=== PATIENT | female | born 1935 | race Caucasian/White ===

== ENCOUNTER 2021-12-20 08:58 | Outpatient (RCR) | payer MEDICARE, SELFPAY ==
--- OUTSIDE RECORDS SUMMARY | 2021-12-01 09:14 | XMS_ITS | Continuity of Care Document ---
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 Own home/apt August 27, 2020 7:4 7pm With whom do you live? Spouse August 27, 2020 7:47pm Comment on who patient lives Joselyn July 11:34am with Additional Data Assigned Sex Female Problems Active Problems Medical Problem Onset Date Status Upper GI bleed Active Acute blood loss anemia Active Inactive/Resolved Problems Medical Problem Onset Date Status Afib Resolved Atrial flutter Resolved Atypical chest pain Resolved Hematuria Resolved Closed head injury Resolved Endometrial cancer 2019 Resolved Medications Medication Status Dose Units Route Directions Qty Days Start End Ins tructions Date Date Apixaban Active 2.5 MG PO Twice A Day 60 (Eliquis) 2.5 Mg TAB Atorvastatin Active 10 MG PO Bedtime 90 Calcium (Lipitor) 10 Mg TAB Cyanocobalami Active 500 MCG OR Daily August (Vitamin 16th, B12) 500 Mcg 2021 TAB 2:20pm Flecainide Active 75 MG PO Twice A Day 90 Acetate Fluticasone Active 2 SPRAY EACH Daily as Propionate NOSTR needed (Nasal) (Flonase Nasal [place]) 50 Mcg/[place] MORGAN Furosemide Active 40 MG PO Every 60 Morning Gabapentin Active 100 MG PO Bedtime November 22, 2021 3:33pm Glipizide Active 5 MG PO Daily 90 On hold-n ot taking Metoprolol Active 25 MG PO Daily 90 Tartrate Multivitamins Active 1 TAB PO Daily 100 (Multivitamin /Minerals) TAB Omeprazole Active 20 MG PO Twice A Day 60 August 28, 2020 12:01pm Oxybutynin Active 5 MG PO Twice A Day 60 Febemb Chloride er 2019 12:35pm Potassium Active 40 MEQ PO Daily 180 Chloride Prochlorperaz Active 10 MG PO Every August PRN ine Maleate Hours as , Nause a/vomiti needed for 2019 ng Nausea/Vomi 3:18pm ting Alendronate Discontin 70 MG PO Qtaugust Sodium ued , (Fosamax) 70 2020 Mg TAB 12:00p m Aspirin Discontin December ued 2011 8:20am Cephalexin Discontin 500 MG PO Three Times September (Keflex) 500 ued A Day , Mg CAP 2019 2019 3:02pm 8:53am Cetirizine Discontin December Hcl (Zyrtec ued , Allergy 2011 Liquigels) 10 8:20am Mg CAP Diltiazem Hcl Discontin 120 MG PO Daily March (Diltiazem ued , Hcl Er (2015 Hr)) 120 Mg 8:31am 10:52a CAPCR m Flaxseed Discontin 1000 MG PO Daily August (Linseed) ued , (Flaxseed 2019 Oil) 1,000 Mg 10:52a CAP m Flecainide Discontin 300 MG PO As Directed e TAKE TWO TABS Acetate ued as needed r AT ONSET OF (Tambocor) , ATRIAL 150 Mg TAB 2015 FIBRILLAT ION 8:31am Furosemide Discontin 40 MG PO Twice A Day Augusted 2020 9:24am Furosemide Discontin 20 MG PO Daily ued ry 2016 10:55a m Furosemide Discontin 40 MG PO Daily 30 Marobe ued r 2015 8:31am Gabapentin Discontin 100 MG PO Bedtime August ued , , 2021 2021 5:54pm 3:33pm Gabapentin Discontin 100 MG PO Bedtime November Has never ued , , taking 2020 2021 1:53pm 5:54pm Gabapentin Discontin 100 MG PO Bedtime August ued 2021 5:54pm Gabapentin Discontin 100 MG PO Bedtime November ued r , 2019 1:21pm 1:53pm Glipizide Discontin 5 MG PO Daily 06 September (Glipizide ued , Er) 5 Mg 2020 TABCR 9:24am Glyburide Discontin 2.5 MG PO Daily 06 January ued 2019 2:15pm Hctz/Lisinopr Discontin December ued , (Zestoretic) 2011 1 Tab TAB 8:20am Hydrochloroth Discontin 25 MG PO Daily Octobe iazide ued r 2015 8:16am Metformin Hcl Discontin 500 MG PO Daily November ued 2019 8:47am Metformin Hcl Discontin 500 MG PO Daily August ued 2019 10:52a m Metformin Hcl Discontin 500 MG PO Twice Daily 0 Ju ly ued With Meals 2011 8:20am Metoprolol Discontin 25 MG PO Three Times Octob e Succinate ued A Day r (Metoprolol , Succinate Er) 2015 25 Mg TABCR 8:16am Metoprolol Discontin 25 MG PO Three Times 60 Octob e Tartrate ued A Day r 2015 8:31am Metoprolol Discontin 50 MG PO Twice A Day 0 December Tartrate ued 2011 2:33pm Multi Vit Discontin December ued 2011 2:33pm Multiple Discontin 1 EA PO Daily Octobe Vitamin ued r (Multivitamin ) CAP 2015 8:16am Olopatadine Discontin 1 DROP BOTH Twice A Day Severo h Hcl (Patanol) ued EYES as needed , 5 Ml SOLN 2020 9:37am Olopatadine Discontin December Hcl (Patanol) ued , 5 Ml SOLN 2011 2:35pm Oxybutynin Discontin 5 MG PO Twice A Day 60 September m Chloride ued 2019, 9:28am 2019 12:35p m Pioglitazone Discontin 15 MG PO Daily 06 January Hcl (Actos) ued , 15 Mg TAB 2011 8:20am Potassium Discontin 20 MEQ PO Daily Octobe Chloride ued r (Klor-Con M) , 20 Meq TABCR 2016 8:16am Rivaroxaban Discontin 20 MG PO Every August (Xarelto) 20 ued Evening At 21st, Mg TAB 6:00PM 2020 12:00p m Rivaroxaban Discontin 10 MG PO Daily (Xarelto) 10 ued ry Mg TAB 2016 10:55a m Sennosides Discontin 1 TAB PO Daily August (Senna) 8.6 ued , Mg TAB 2020 10:29a m Vit E Discontin December ued 2011 8:20am Immunizations Immunization Event Date Not Given Dose [employer] Lot Vac cine Reason Number Number Informatio n Statement (VIS) Deta il COVID-19 Pfizer July 11 PFIZER-BIO [id number] 2020 COVID-19 Pfizer August 16 PFIZER-Cara TherapeuticsNTNativis [id number] 2020 Relevant Diagnostic Tests and/or Laboratory Data Laboratory Results Test Date/Time Result Interpretation Reference Result Comment Performing Range Site White Blood August 14, 2.40 5.00-10.00 [facility] Count 2021 [address] [facility] 9:19am [place] [address] Red Blood Count August 14, 4.10 3.90-5.03 [facility] 2021 [address] [facility] 9:19am [place] [address] Hemoglobin August 14, 12.3 12.0-15.5 [facility] 2021 [address] [facility] 9:19am [place] [address] Hematocrit August 14, 37.9 34.9-44.5 [facility] 2021 [address] [facility] 9:19am [place] [address] Mean August 14, 92 82-98 [facility] Corpuscular 2021 [address] [facility] Volume 9:19am [place] [address] Mean August 14, 30 27-34 [facility] Corpuscular 2021 [address] [facility] Hemoglobin 9:19am [place] [address] Mean August 14, 33 32-36 [facility] Corpuscular 2021 [address] [facility] Hemoglobin 9:19am [place] [address] Concent Platelet Count August 14, 136 150-450 [facility] 2021 [address] [facility] 9:19am [place] [address] RDW Coefficient August 14, 13.1 11.5-15.3 [facility] of Variation 2021 [address] [facility] 9:19am [place] [address] Neutrophils (%) August 14, 60.0 50.0-70.0 [facility] (Auto) 2021 [address] [facility] 9:19am [place] [address] Lymphocytes (%) August 14, 25.0 25.0-45.0 [facility] (Auto) 2021 [address] [facility] 9:19am [place] [address] Monocytes (%) August 14, 10.0 0.00-11.0 [facility] (Auto) 2021 [address] [facility] 9:19am [place] [address] Eosinophils (%) August 14, 3.3 0.0-7.0 [facility] (Auto) 2021 [address] [facility] 9:19am [place] [address] Basophils (%) August 14, 1.3 0.0-3.0 [facility] (Auto) 2021 [address] [facility] 9:19am [place] [address] Immature August 14, 0.4 [facility] Granulocyte % 2021 [address] [facility] (Auto) 9:19am [facility] [address] Neutrophils # August 14, 1.44 1.70-7.00 [facility] (Auto) 2021 [address] [facility] 9:19am [place] [address] Lymphocytes # August 14, 0.60 0.90-2.90 [facility] (Auto) 2021 [address] [facility] 9:19am [place] [address] Monocytes # August 14, 0.24 0.30-0.90 [facility] (Auto) 2021 [address] [facility] 9:19am [place] [address] Eosinophils # August 14, 0.08 0.00-0.50 [facility] (Auto) 2021 [address] [facility] 9:19am [place] [address] Basophils # August 14, 0.03 0.00-0.20 [facility] (Auto) 2021 [address] [facility] 9:19am [place] [address] Immature August 14, 0.01 [facility] Granulocyte # 2021 [address] [facility] (Auto) 9:19am [place] [address] Random Glucose August 14, 117 60-115 [facility] 2021 [address] [facility] 9:19am [place] [address] Blood Urea August 14, 20 7-30 [facility] Nitrogen 2021 [address] [facility] 9:19am [facility] [address] Creatinine August 14, 0.7 0.5-1.5 [facility] 2021 [address] [facility] 9:19am [place] [address] Estimated August 14, Patient [facility] Creatinine 2021 height/weight [address] [facility] Clearance 9:19am [place] [address] available Sodium Level August 14, 141 135-149 [facility] 2021 [address] [facility] 9:19am [facility] [address] Potassium Level August 14, 3.9 3.6-5.1 [facility] 2021 [address] [facility] 9:19am [facility] [address] Chloride Level August 14, 104 96-114 [facility] 2021 [address] [facility] 9:19am [facility] [address] Carbon Dioxide August 14, 29 20-32 [facility] Level 2021 [address] [facility] 9:19am [facility] [address] Calcium Level August 14, 9.1 8.4-10.6 [facility] 2021 [address] [facility] 9:19am [facility] [address] Total Protein August 14, 6.9 6.0-8.3 The use of [facility] 2021 Eltrombopag, a [address] [facility] 9:19am bone [place] [facility] [place] [address] stimulant used to treat thrombocytopenia and aplastic anemia, interferes with this measurement of total protein. A 5% bias has been observed. Albumin August 14, 4.4 3.3-5.0 [facility] 2021 [address] [facility] 9:19am [facility] [address] Total Bilirubin August 14, 0.6 0.1-1.5 [facility] 2021 [address] [facility] 9:19am [place] [address] Aspartate Amino August 14, 28 12-35 [facility] Transf 2021 [address] [facility] (AST/SGOT) 9:19am [facility] [address] Alanine August 14, 17 4-35 [facility] Aminotransferas 2021 [address] [facility] e (ALT/SGPT) 9:19am [facility] [address] Alkaline August 14, 86 40-150 [facility] Phosphatase 2021 [address] [facility] 9:19am [facility] [address] Advance Directives Advance Directive Response Recorded Date/Time Does Pt have Health Care Yes January 02, 2012 7:25am Directive? Has patient completed a Yes August 27, 2020 7:47pm Health Care Directive? Insurance Providers Guarantor Lauro Kennedy Address [address] [place] [address] Contact Info. Home Phone: Payer Policy Id Coverage Id Subscriber's Subscriber Effective Expi ration Name Id Date Date [facility] [id number] Lauro Kennedy June Options Medicare [id number] Lauro Kennedy 2000 Encounters Encounter Location(s) Arrival/Admit Date Discharge/Depart Date Provider(s) Registered [place] November 08, 2021 Elias Valdez [facility] 7:00am Functional Status Observation Response Date Recorded Functional Status Independent August 28, 2020 5:0 0pm Mental Status Observation Response Date Recorded Cognitive Status Alert August 28, 2020 5:0 0pm Plan of Treatment Future Tests Future scheduled test information is unavailable Pending Tests Pending diagnostic test information is unavailable Future Visits Future appointment information is unavailable Referrals to Other Providers Reason for Referral Start Provider Provider Contact Provider Address Referral Date Information Alanna Arrieta Work Phone: BERNABE Gonzalez MD Shamir [address] [facility] [phone] Future Procedures Future procedure information is unavailable Future Medications Future medication information is unavailable Patient Instructions Omeprazole (By mouth) Gastrointestinal Bleeding (DC) Anemia (AC)
[2021-12-20] MEDS: SODIUM CHLORIDE 0.9 % (FLUSH) 10 ML SYRINGE IVF (09:09)
[2021-12-20] MEDS: HEPARIN 500 UNIT/5 ML SYRINGE IVF (09:09)
== END 2022-01-07 23:59 | disposition home or self-care (01) ==
LOC: CCIC 08:58
PROVIDERS: PCP Family Medicine; Visit Provider Internal Medicine Hematology & Oncology
DX: C54.1 Malignant neoplasm of endometrium (principal)
CPT/HCPCS: 99211; J1642

== ENCOUNTER 2022-04-02 15:32 | Outpatient (CLI) | payer MEDICARE, SELFPAY ==
[2022-04-02 22:00] LABS: Chloride* 102 mmol/L (96-114)
[2022-04-02 22:01] LABS: Potassium* 4.2 mmol/L (3.6-5.1); Sodium* 139 mmol/L (135-149)
[2022-04-02 22:03] LABS: Creatinine* 0.8 mg/dL (0.5-1.5); Estimated Glomerular Filt Rate 71 ml/min
[2022-04-02 22:04] LABS: Blood Urea Nitrogen* 26 mg/dL (7-30); Calcium* 9.5 mg/dL (8.4-10.6); Carbon Dioxide* 29 mmol/L (20-32); Glucose* 126 mg/dL (60-115)
== END 2022-04-02 15:33 | disposition home or self-care (01) ==
LOC: NFLDUCREF 15:35
PROVIDERS: PCP Family Medicine; Visit Provider Registered Nurse
DX: I48.91 Unspecified atrial fibrillation (principal); R00.1 Bradycardia, unspecified; R82.79 Other abnormal findings on microbiological examination of urine
CPT/HCPCS: 80048; 87086

== ENCOUNTER 2022-07-03 14:00 | Outpatient (RCR) | payer MEDICARE, SELFPAY ==
[2022-01-23] MEDS: HEPARIN 500 UNIT/5 ML SYRINGE IVF (12:59)
[2022-01-23] MEDS: SODIUM CHLORIDE 0.9 % (FLUSH) 10 ML SYRINGE IVF (12:59)
[2022-02-14] MEDS: SODIUM CHLORIDE 0.9 % (FLUSH) 10 ML SYRINGE IVF ×2 (09:18→14:33)
[2022-02-14 09:22] LABS: Basophils Percent Auto 0.8 % (0.0-3.0); Eosinophils Percent Auto 2.7 % (0.0-7.0); Hematocrit 38.3 % (33.0-51.0); Hemoglobin* 12.4 gm/dL (12.0-16.0); Lymphocytes Percent Auto 29.7 % (20-44); Mean Corpuscular HGB Conc 32 gm/dL (32-36); Mean Corpuscular Hemoglobin 30 pg (26-34); Mean Corpuscular Volume 91 fL (80-100); Monocytes Percent Auto 9.9 % (0.0-11.0); Neutrophils Percent Auto 56.9 % (42.0-72.0); Platelet Count* 130 K/uL (140-440); RDW Coefficient of Variation % 13.1 % (11.5-15.5); Red Blood Count 4.19 m/uL (4.00-5.20); White Blood Count* 2.63 K/uL (4.50-11.00)
[2022-02-14 09:44] LABS: Chloride* 104 mmol/L (96-114); Potassium* 3.9 mmol/L (3.6-5.1); Sodium* 139 mmol/L (135-149)
[2022-02-14 09:46] LABS: Aspartate Amino Transferase* 29 U/L (12-35); Bilirubin Total* 0.6 mg/dL (0.1-1.5); Carbon Dioxide* 27 mmol/L (20-32); Creatinine* 0.8 mg/dL (0.5-1.5); Estimated Glomerular Filt Rate 71 ml/min
[2022-02-14 09:47] LABS: Alanine Aminotransferase* 16 U/L (4-35); Alkaline Phosphatase* 65 U/L (40-150); Blood Urea Nitrogen* 22 mg/dL (7-30); Calcium* 9.1 mg/dL (8.4-10.6); Glucose* 107 mg/dL (60-115); Total Protein* 6.6 g/dL (6.0-8.3)
[2022-02-14 09:55] LABS: Slide Review Reflex No
[2022-02-14 10:39] LABS: Vitamin B12* > 1000 pg/mL (243-894)
[2022-02-14] MEDS: HEPARIN 500 UNIT/5 ML SYRINGE IVF (14:33)
[2022-05-21] MEDS: SODIUM CHLORIDE 0.9 % (FLUSH) 10 ML SYRINGE IVF (15:26)
[2022-05-21] MEDS: HEPARIN 500 UNIT/5 ML SYRINGE IVF (15:26)
== END 2022-07-22 23:59 | disposition home or self-care (01) ==
LOC: CCIC 14:00
PROVIDERS: PCP Family Medicine; Referring Provider Family Medicine; Visit Provider Internal Medicine Hematology & Oncology
DX: C54.1 Malignant neoplasm of endometrium (principal)
CPT/HCPCS: 36415; 36591; 71260; 74177; 80053; 82607; 85025; 99211; 99212; 99214; J1642; Q9967

== ENCOUNTER 2022-08-22 09:31 | Outpatient (CLI) | payer MEDICARE, SELFPAY ==
--- NOTE | 2022-08-22 10:00 | CRLHL7_ITS ---
For Patients: As a result of the Century Cures Act, medical imaging exams and procedure reports are released immediately into your electronic medical record. You may view this report before your referring provider. If you have questions, please contact your health care provider. CLINICAL INFORMATION: Endometrial cancer. TECHNIQUE: Contrast-enhanced CT of the chest, abdomen and pelvis was obtained. Coronal and sagittal reformatted images were obtained. Contrast: 62 mL of Isovue 370 intravenous contrast was injected uneventfully prior to image acquisition. Radiation Dose Estimate (Total Exam DLP): 756 mGy-cm. COMPARISON: CT chest, abdomen, and pelvis 02/14/2022, 08/14/2021, 03/27/2021. FINDINGS: Chest: Thyroid: Unremarkable Lungs: 2 x 1.7 x 1.1 cm irregular shaped nodular opacity in the subpleural right lower lobe (series 2, image 68) is new since prior examination. Multiple additional bilateral pulmonary nodules are present, measuring up to 6 mm and have been stable on multiple prior examinations. Heart/Pericardium: Unremarkable. Tunneled left internal jugular vein approach chest for with catheter tip in the SVC. Lymph Nodes: No significant axillary, mediastinal, or hilar lymphadenopathy. Abdomen/Pelvis: Liver: Stable benign left hepatic lobe cyst. Gallbladder: Unremarkable. Spleen: Unremarkable. Adrenal glands: Unremarkable. Kidneys: Enhance symmetrically without hydronephrosis. Pancreas: Stable mild prominence of the main pancreatic duct measuring up to 5 mm in the pancreatic head. Lymph nodes: No retroperitoneal, mesenteric, inguinal, or pelvic adenopathy by CT criteria. Vascular: Abdominal aorta normal in caliber. Bowel: Evaluation is limited without enteric contrast. Grossly unremarkable. Urinary bladder: Mildly distended but otherwise unremarkable. Reproductive structures: Status post hysterectomy with oophorectomy No abdominal/pelvis ascites or free intraperitoneal air. Musculoskeletal: Visualized osseous structures demonstrate diffuse degenerative changes. IMPRESSION: 1. New 2 cm irregular shaped nodular pulmonary opacity in the subpleural right lower lobe. Given history of endometrial cancer metastasis cannot be excluded. Please note that all CT scans at this facility use dose modulation, iterative reconstruction, and/or weight-based dosing when appropriate to reduce radiation dose to as low as reasonably achievable. Dictated by Brendan Verde MD @ 08/26/2022 12:43:05 PM (Electronically Signed)
== END 2022-08-22 09:32 | disposition home or self-care (01) ==
LOC: CT 09:34
PROVIDERS: PCP Family Medicine; Visit Provider Internal Medicine Hematology & Oncology
DX: C54.1 Malignant neoplasm of endometrium (principal); R91.1 Solitary pulmonary nodule
CPT/HCPCS: 36415; 36591; 71260; 74177; 80053; 85025; J1642; Q9967

== ENCOUNTER 2022-09-06 15:40 | Outpatient (CLI) | payer MEDICARE, SELFPAY ==
--- NOTE | 2022-09-06 16:15 | CRLHL7_ITS ---
For Patients: As a result of the Century Cures Act, medical imaging exams and procedure reports are released immediately into your electronic medical record. You may view this report before your referring provider. If you have questions, please contact your health care provider. INDICATION: Endometrial carcinoma initially diagnosed July 06, 2019. Subsequent laparoscopic hysterectomy, bilateral salpingo-oophorectomy, infra colic omentectomy, bilateral pelvic sentinel lymph node, as well as right pelvic and periaortic lymphadenectomy. One of 4 lymph nodes was positive for microscopic metastatic disease. History of chemotherapy. Radiation therapy. History of small intrapulmonary nodules. New right lower lobe pulmonary nodule identified on a recent CT August 22, 2022. Follow-up. TECHNIQUE: 11.9 mCi 18 FDG (18 muoexe-cn-brt-glucose) injected intravenously. Imaging performed from the mid forehead to the mid thighs [address] performed for anatomic correlation and attenuation correction. Pre scan glucose: 111 mg/dL. COMPARISON: Correlation is made with a CT of the chest abdomen and pelvis August 22, 2022, February 14, 2022, and August 14, 2021. FINDINGS: Physiologic activity is identified in the brain, salivary glands, tongue, paralaryngeal soft tissues, myocardium, GI, and tract. Physiologic uptake associated with the nipple-areolar complexes. The included intracranial structures and included soft tissues of the head, face, and neck are within normal limits. No abnormal activity within the thyroid gland. Within the chest there is a metabolically active irregular nearly 2 cm nodule within the right lower lobe laterally SUV max 5.4 likely an intrapulmonary metastasis. There are few additional tiny sub cm pulmonary nodules not metabolically active such as within the superior segment of the right lower lobe posterior to the major fissure with SUV max of less than 1.0. No abnormal activity within thoracic lymph node groups or either breast. The abdomen and pelvis are within normal limits. No abnormal activity within abdominal pelvic or inguinal lymph node groups. The soft tissues of the included thighs are within normal limits. The included skeleton is negative for metabolically active metastatic disease. Benign arthritic type activity of the shoulders, right cervical facet joints and sternoclavicular joints. CT Findings: Left-sided Port-A-Cath with its lead tip in the superior vena cava. Few tiny intrapulmonary nodules. Nearly 2 cm irregular nodule right lower lobe laterally. No hydronephrosis or splenomegaly. Tiny calcification left kidney could reflect a tiny nonobstructing stone. Vascular calcification and normal caliber mildly tortuous abdominal aorta and iliac arteries. Surgically absent uterus, ovaries, and omentum. Lumbar scoliotic curvature convex towards the right. Multilevel degenerative disc disease of the included thoracolumbar spine. Degenerative arthritis of the hips. IMPRESSION: 1. Metabolically active nearly 2 cm irregular pulmonary nodule subpleural right lower lobe of the lung suspicious for a metastasis. The measured SUV max is 5.4. 2. Few additional tiny sub cm pulmonary nodules below threshold for PET imaging and which do not demonstrate metabolic activity. 3. The examination is otherwise negative. Dictated by Miguel Becerril MD @ 09/13/2022 3:53:08 PM (Electronically Signed)
== END 2022-09-06 15:41 | disposition home or self-care (01) ==
PROVIDERS: PCP Family Medicine; Visit Provider Internal Medicine Hematology & Oncology
DX: C54.1 Malignant neoplasm of endometrium (principal); R91.8 Other nonspecific abnormal finding of lung field
CPT/HCPCS: 78815; A9552

== ENCOUNTER 2023-01-10 09:32 | Outpatient (CLI) | payer MEDICARE, SELFPAY ==
--- NOTE | 2023-01-10 10:00 | CRLHL7_ITS ---
For Patients: As a result of the Century Cures Act, medical imaging exams and procedure reports are released immediately into your electronic medical record. You may view this report before your referring provider. If you have questions, please contact your health care provider. Indication: FOLLOW UP MALIGNANT NEOPLASM OF ENDOMETRIUM Technique: Postcontrast CT chest, abdomen and pelvis. 59 cc Isovue 370 intravenous contrast. Please note that all CT scans at this facility use dose modulation, iterative reconstruction, and/or weight-based dosing when appropriate to reduce radiation dose to as low as reasonably achievable. Comparison: CT PET 09/06/2022, CT 08/22/2022 Findings: In the chest, there is decreased size and density regarding the previously noted lobular nodule within the periphery of the right lower lobe. Mild adjacent interstitial change noted. Similar small nodules are present bilaterally including a 5.3 millimeter nodule within right lower lobe, 3/63. Smaller nodules are present within the left upper lobe. There is also a similar 4.3 millimeter nodule within the right lower lobe, 3/35. No infiltrate or edema. No effusion or pneumothorax. Visualized thyroid is normal. No enlarged mediastinal, hilar or axillary lymph nodes. Stable benign sclerotic focus within the right scapula. In the abdomen, there is no intrahepatic mass. A 6 millimeters cyst is present within the left hepatic lobe. Gallbladder normal. No calcified gallstone. No biliary obstruction. The spleen is similar with areas of decreased density representing cysts or hemangiomas. No splenomegaly. The adrenal glands are within normal limits. No solid renal mass or stone. Subcentimeter cysts are present within the right kidney. No bowel obstruction or free air. No abscess. The pancreatic parenchyma is similar with mild ectasia of the pancreatic duct and associated pancreatic calcifications. Similar subcentimeter left periaortic lymph nodes. In the pelvis, there is no pelvic mass. No inguinal or pelvic sidewall adenopathy. Trace pelvic free fluid. Chronic wedging of the L4 and L5 vertebral bodies. Stable sclerotic focus within L3. No bladder wall thickening or bladder stone. Degenerative changes are present. Impression: Decreased size, definition and density regarding the lobular nodule within the periphery of the right lower lobe. Stable pulmonary nodules elsewhere measuring up to 5.3 millimeters. Stable benign sclerotic foci within L3 and the right scapula. No adenopathy or intrahepatic mass. Please note that all CT scans at this facility use dose modulation, iterative reconstruction, and/or weight-based dosing when appropriate to reduce radiation dose to as low as reasonably achievable. Dictated by Eddie Price MD @ 01/11/2023 12:38:06 PM (Electronically Signed)
== END 2023-01-10 09:33 | disposition home or self-care (01) ==
PROVIDERS: PCP Family Medicine; Visit Provider Physician Assistant
DX: C54.1 Malignant neoplasm of endometrium (principal); R91.1 Solitary pulmonary nodule
CPT/HCPCS: 71260; 74177; Q9967

== ENCOUNTER 2023-01-16 13:00 | Outpatient (RCR) | payer MEDICARE, SELFPAY ==
[2022-08-22 10:01] LABS: Basophils Percent Auto 0.4 % (0.0-3.0); Eosinophils Percent Auto 2.9 % (0.0-7.0); Hematocrit 39.7 % (33.0-51.0); Hemoglobin* 13.1 gm/dL (12.0-16.0); Lymphocytes Percent Auto 28.4 % (20-44); Mean Corpuscular HGB Conc 33 gm/dL (32-36); Mean Corpuscular Hemoglobin 30 pg (26-34); Mean Corpuscular Volume 91 fL (80-100); Neutrophils Percent Auto 60.3 % (42.0-72.0); Platelet Count* 134 K/uL (140-440); RDW Coefficient of Variation % 12.8 % (11.5-15.5); Red Blood Count 4.37 m/uL (4.00-5.20); White Blood Count* 2.75 K/uL (4.50-11.00)
[2022-08-22 10:03] LABS: Slide Review Reflex No
[2022-08-22 10:22] LABS: Albumin* 4.2 g/dL (3.3-5.0); Chloride* 105 mmol/L (96-114); Sodium* 138 mmol/L (135-149)
[2022-08-22 10:23] LABS: Potassium* 3.8 mmol/L (3.6-5.1)
[2022-08-22 10:25] LABS: Alanine Aminotransferase* 20 U/L (4-35); Alkaline Phosphatase* 57 U/L (40-150); Aspartate Amino Transferase* 29 U/L (12-35); Bilirubin Total* 0.7 mg/dL (0.1-1.5); Blood Urea Nitrogen* 21 mg/dL (7-30); Carbon Dioxide* 28 mmol/L (20-32); Creatinine* 0.7 mg/dL (0.5-1.5); Estimated Glomerular Filt Rate 84 ml/min; Glucose* 115 mg/dL (60-115); Total Protein* 6.8 g/dL (6.0-8.3)
[2022-08-22 10:26] LABS: Calcium* 9.2 mg/dL (8.4-10.6)
[2022-08-22] MEDS: HEPARIN 500 UNIT/5 ML SYRINGE IVF (10:49)
[2022-08-22] MEDS: SODIUM CHLORIDE 0.9 % (FLUSH) 10 ML SYRINGE IVF (10:49)
[2022-11-27] MEDS: HEPARIN 500 UNIT/5 ML SYRINGE IVF (14:05)
[2022-11-27] MEDS: SODIUM CHLORIDE 0.9 % (FLUSH) 10 ML SYRINGE IVF (14:05)
[2023-01-10 09:38] LABS: Basophils Percent Auto 0.4 % (0.0-3.0); Eosinophils Percent Auto 2.8 % (0.0-7.0); Hematocrit 36.9 % (33.0-51.0); Lymphocytes Percent Auto 20.5 % (20-44); Mean Corpuscular HGB Conc 33 gm/dL (32-36); Mean Corpuscular Hemoglobin 30 pg (26-34); Mean Corpuscular Volume 93 fL (80-100); Monocytes Percent Auto 11.7 % (0.0-11.0); Neutrophils Percent Auto 64.6 % (42.0-72.0); Platelet Count* 109 K/uL (140-440); RDW Coefficient of Variation % 13.2 % (11.5-15.5); Red Blood Count 3.99 m/uL (4.00-5.20); White Blood Count* 2.83 K/uL (4.50-11.00)
[2023-01-10 09:40] LABS: Slide Review Reflex No
[2023-01-10 10:04] LABS: Chloride* 107 mmol/L (96-114); Sodium* 140 mmol/L (135-149)
[2023-01-10 10:05] LABS: Potassium* 4.2 mmol/L (3.6-5.1)
[2023-01-10 10:07] LABS: Alanine Aminotransferase* 20 U/L (4-35); Alkaline Phosphatase* 46 U/L (40-150); Aspartate Amino Transferase* 29 U/L (12-35); Bilirubin Total* 0.5 mg/dL (0.1-1.5); Blood Urea Nitrogen* 27 mg/dL (7-30); Carbon Dioxide* 30 mmol/L (20-32); Creatinine* 0.7 mg/dL (0.5-1.5); Estimated Glomerular Filt Rate 84 ml/min; Glucose* 106 mg/dL (60-115); Total Protein* 6.6 g/dL (6.0-8.3)
[2023-01-10 10:08] LABS: Calcium* 9.2 mg/dL (8.4-10.6)
[2023-01-10] MEDS: HEPARIN 500 UNIT/5 ML SYRINGE IVF (14:19)
[2023-01-10] MEDS: SODIUM CHLORIDE 0.9 % (FLUSH) 10 ML SYRINGE IVF (14:19)
== END 2023-02-18 23:59 | disposition home or self-care (01) ==
LOC: CCIC 13:00
PROVIDERS: Physician Assistant; PCP Family Medicine; Referring Provider Family Medicine; Visit Provider Internal Medicine Hematology & Oncology
DX: C54.1 Malignant neoplasm of endometrium (principal); G62.0 Drug-induced polyneuropathy; T45.1X5A Adverse effect of antineoplastic and immunosuppressive drugs, initial encounter; I48.91 Unspecified atrial fibrillation; Z79.01 Long term (current) use of anticoagulants; D72.819 Decreased white blood cell count, unspecified; R91.1 Solitary pulmonary nodule
CPT/HCPCS: 36415; 36591; 71260; 74177; 80053; 85025; 99211; 99212; 99213; 99214; J1642; Q9967

== ENCOUNTER 2023-03-11 07:42 | Outpatient (CLI) | payer MEDICARE, SELFPAY | END 2023-03-11 07:43 | disposition home or self-care (01) | LOC: AMB 03-15 12:36 | PROVIDERS: PCP Family Medicine; Visit Provider Family Medicine | DX: I95.9 Hypotension, unspecified (principal) | CPT/HCPCS: A0425; A0427 ==

== ENCOUNTER 2023-03-11 08:10 | Emergency (ER) | payer MEDICARE, SELFPAY ==
[2023-03-11] VITALS (28 sets, daily range): BP systolic 100–135; BP diastolic 61–96; PULSE 56–126; RESP 12–23; TEMP 35.9; O2SAT 90–100
--- NOTE | 2023-03-11 08:27 | ED.WEAKNESS ---
HPI - Weakness General Time Seen by Provider: 08:27 <Carmencita Gallegos MD - Last Filed: 03/11/23 20:36> Date Seen: 03/11/23 <Carmencita Gallegos MD - Last Filed: 03/11/23 20:36> Chief complaint: Weakness <Carmencita Gallegos MD - Last Filed: 03/11/23 20:36> Stated complaint: Hypotensive <Carmencita Gallegos MD - Last Filed: 03/11/23 20:36> Time Seen by Provider: 03/11/23 08:26 <Carmencita Gallegos MD - Last Filed: 03/11/23 20:36> Source: patient and RN notes reviewed <Carmencita Gallegos MD - Last Filed: 03/11/23 20:36> Mode of arrival: ambulatory <Carmencita Gallegos MD - Last Filed: 03/11/23 20:36> Limitations: no limitations <Carmencita Gallegos MD - Last Filed: 03/11/23 20:36> History of Present Illness HPI Narrative: Ilir is an 88-year-old female brought in by ambulance this morning to the hospital with feeling woozy or weak. She notes she was up 3 times overnight to go to the bathroom which is a bit unusual, did not have problems feeling this way. Normally she would maybe get up once a night. This morning after she got up for the day, she went to the bathroom with her walker, was really feeling woozy or lightheaded. She had no pain anywhere. She denies any chest pain, no shortness of breath. She admits she did not take any of her morning meds. When she was on the toilet, she was not sure how she was going to make it off. There is no fall, no injury. EMS did give her a 500 mL normal saline bolus, checked her sugar and it was 189. She admits she maybe had a little water this morning, nothing else. She is feeling a bit better presumably from the IV fluids. She states the cool outside air maybe woke her up as well. She was at the cabin this weekend, came back last night. Is not endorsing any symptoms of illness, is not aware of any ill contacts. 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 She has underlying chemo induced neuropathy, underlying atrial fibrillation for which she takes chronic Eliquis. She is on flecainide and metoprolol for her atrial fibrillation as well. Her metoprolol dose is only 12.5 mg and she is not taken it this morning yet. Her got her blood pressure to be in the 80s systolic which prompted him to call EMS, EMS confirmed blood pressure systolic in the 80s. <Carmencita Gallegos MD - Last Filed: 03/11/23 20:36> MD Complaint: generalized weakness <Carmencita Gallegos MD - Last Filed: 03/11/23 20:36> Related Data Home medications: Home Medications Medication Instructions Recorded Confirmed apixaban 2.5 mg tablet (Eliquis) 2.5 mg PO BID 12/18/21 03/11/23 atorvastatin 10 mg tablet 10 mg PO DAILY 12/18/21 03/11/23 cyanocobalamin (vitamin B-12) 500 500 mcg PO DAILY 12/18/21 03/11/23 mcg tablet flecainide 150 mg tablet See Rx Instructions PO BID 12/18/21 03/11/23 fluticasone propionate 50 2 spray intranasal DAILY PRN 12/18/21 01/16/23 mcg/actuation nasal spray,suspension (Flonase Allergy Relief) multivitamin 1 tab PO DAILY 12/18/21 03/11/23 omeprazole 20 mg capsule,delayed 20 mg PO BID 12/18/21 03/11/23 release oxybutynin chloride 5 mg tablet 5 mg PO BID 12/18/21 03/11/23 potassium chloride 20 mEq 40 meq PO DAILY 12/18/21 03/11/23 tablet,extended release(part/cryst) metoprolol tartrate 25 mg tablet 12.5 mg PO DAILY 09/27/22 03/11/23 furosemide 20 mg tablet 20 mg PO QAM 01/16/23 03/11/23 alendronate 70 mg tablet mg PO 03/11/23 Previous Rx's Medication Instructions Recorded gabapentin 100 mg capsule 100 mg PO HS #100 caps 02/21/22 <Carmencita Gallegos MD - Last Filed: 03/11/23 20:36> Allergies/Adverse reactions: Allergies Allergy/AdvReac Type Severity Reaction Status Date / Time Metformin Allergy Severe Diarrhea Uncoded 01/10/23 10:35 <Carmencita Gallegos MD - Last Filed: 03/11/23 20:36> Review of Systems Status of ROS: Reports: 10 or more systems reviewed and unremarkable except as noted in History and below <Carmencita Gallegos MD - Last Filed: 03/11/23 20:36> PFSH PFSH Medical History: Medical History Upper gastrointestinal hemorrhage ?K92.2 - Gastrointestinal hemorrhage, unspecified (ICD-10) Malignant neoplasm of endometrium (2020) ?C54.1 - Malignant neoplasm of endometrium (ICD-10) Atrial fibrillation ?I48.91 - Unspecified atrial fibrillation (ICD-10) 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 - Drug-induced polyneuropathy (ICD-10) ?T45.1X5A - Adverse effect of antineoplastic and immunosuppressive drugs, initial encounter (ICD-10) Lung nodule ?R91.1 - Solitary pulmonary nodule (ICD-10) <Carmencita Gallegos MD - Last Filed: 03/11/23 20:36> Surgical History: Surgical History H/O total hysterectomy with bilateral salpingo-oophorectomy (BSO) ?Z90.710 - Acquired absence of both cervix and uterus (ICD-10) ?Z90.722 - Acquired absence of ovaries, bilateral (ICD-10) ?Z90.79 - Acquired absence of other genital organ(s) (ICD-10) <Carmencita Gallegos MD - Last Filed: 03/11/23 20:36> Social History: 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 Smoking Status: Never smoker How often do you have a drink containing alcohol: never AUDIT-C Alcohol total score: 0 Non-prescribed substance use: former substance user <Carmencita Gallegos MD - Last Filed: 03/11/23 20:36> Exam Const: Vital Signs, click to edit/add: Vital Signs - 24 hr 03/11/23 08:16 03/11/23 09:00 03/11/23 09:07 Temperature 96.7 F L Pulse Rate 100 Pulse Rate [Pulse Oximeter] 105 H Pulse Rate [orthos tatic lying Pulse Oximeter] Pulse Rate [orthos tatic sitting Puls e Oximeter] Pulse Rate [orthos tatic standing Pul se Oximeter] Respiratory Rate 18 Blood Pressure Blood Pressure [Ri ght Upper Arm] 100/66 111/78 Blood Pressure [or thostatic lying Ri ght Arm] Blood Pressure [or thostatic sitting Right Arm] Blood Pressure [or thostatic standing Right Arm] Pulse Oximetry 97 99 Oxygen Delivery Me thod Room Air 03/11/23 09:30 03/11/23 09:31 03/11/23 10:14 Temperature Pulse Rate 114 H 111 H 109 H Pulse Rate [Pulse Oximeter] Pulse Rate [orthos tatic lying Pulse Oximeter] Pulse Rate [orthos tatic sitting Puls e Oximeter] Pulse Rate [orthos tatic standing Pul se Oximeter] Respiratory Rate Blood Pressure 111/75 Blood Pressure [Ri ght Upper Arm] Blood Pressure [or thostatic lying Ri ght Arm] Blood Pressure [or thostatic sitting Right Arm] Blood Pressure [or thostatic standing Right Arm] Pulse Oximetry 98 98 93 Oxygen Delivery Me thod 03/11/23 10:30 03/11/23 10:31 03/11/23 11:00 Temperature Pulse Rate 117 H 115 H 112 H Pulse Rate [Pulse Oximeter] Pulse Rate [orthos tatic lying Pulse Oximeter] Pulse Rate [orthos tatic sitting Puls e Oximeter] Pulse Rate [orthos tatic standing Pul se Oximeter] Respiratory Rate Blood Pressure 111/72 Blood Pressure [Ri ght Upper Arm] Blood Pressure [or thostatic lying Ri ght Arm] Blood Pressure [or thostatic sitting Right Arm] Blood Pressure [or thostatic standing Right Arm] Pulse Oximetry 98 99 98 Oxygen Delivery Me thod 03/11/23 11:01 03/11/23 11:30 03/11/23 11:31 Temperature Pulse Rate 107 H 109 H 116 H Pulse Rate [Pulse Oximeter] Pulse Rate [orthos tatic lying Pulse Oximeter] Pulse Rate [orthos tatic sitting Puls e Oximeter] Pulse Rate [orthos tatic standing Pul se Oximeter] Respiratory Rate Blood Pressure 115/77 123/81 Blood Pressure [Ri ght Upper Arm] Blood Pressure [or thostatic lying Ri ght Arm] Blood Pressure [or thostatic sitting Right Arm] Blood Pressure [or thostatic standing Right Arm] Pulse Oximetry 97 99 98 Oxygen Delivery Me thod 03/11/23 11:32 03/11/23 11:33 03/11/23 11:50 Temperature Pulse Rate 126 H Pulse Rate [Pulse Oximeter] Pulse Rate [orthos tatic lying Pulse Oximeter] 105 H Pulse Rate [orthos tatic sitting Puls e Oximeter] 112 H Pulse Rate [orthos tatic standing Pul se Oximeter] 122 H Respiratory Rate Blood Pressure 108/87 100/75 Blood Pressure [Ri ght Upper Arm] Blood Pressure [or thostatic lying Ri ght Arm] 123/81 Blood Pressure [or thostatic sitting Right Arm] 108/87 Blood Pressure [or thostatic standing Right Arm] 100/75 Pulse Oximetry 98 Oxygen Delivery Me thod 03/11/23 12:00 03/11/23 12:01 03/11/23 12:02 Temperature Pulse Rate 126 H 116 H 116 H Pulse Rate [Pulse Oximeter] Pulse Rate [orthos tatic lying Pulse Oximeter] Pulse Rate [orthos tatic sitting Puls e Oximeter] Pulse Rate [orthos tatic standing Pul se Oximeter] Respiratory Rate Blood Pressure 113/86 Blood Pressure [Ri ght Upper Arm] Blood Pressure [or thostatic lying Ri ght Arm] Blood Pressure [or thostatic sitting Right Arm] Blood Pressure [or thostatic standing Right Arm] Pulse Oximetry 90 99 96 Oxygen Delivery Me thod 03/11/23 12:18 03/11/23 12:30 03/11/23 12:31 Temperature Pulse Rate 107 H 107 H 99 Pulse Rate [Pulse Oximeter] Pulse Rate [orthos tatic lying Pulse Oximeter] Pulse Rate [orthos tatic sitting Puls e Oximeter] Pulse Rate [orthos tatic standing Pul se Oximeter] Respiratory Rate 21 19 Blood Pressure 125/84 119/96 H Blood Pressure [Ri ght Upper Arm] Blood Pressure [or thostatic lying Ri ght Arm] Blood Pressure [or thostatic sitting Right Arm] Blood Pressure [or thostatic standing Right Arm] Pulse Oximetry 99 99 99 Oxygen Delivery Me thod 03/11/23 12:48 03/11/23 12:52 03/11/23 13:00 Temperature Pulse Rate 61 59 L Pulse Rate [Pulse Oximeter] Pulse Rate [orthos tatic lying Pulse Oximeter] Pulse Rate [orthos tatic sitting Puls e Oximeter] Pulse Rate [orthos tatic standing Pul se Oximeter] Respiratory Rate 16 Blood Pressure 135/81 Blood Pressure [Ri ght Upper Arm] Blood Pressure [or thostatic lying Ri ght Arm] Blood Pressure [or thostatic sitting Right Arm] Blood Pressure [or thostatic standing Right Arm] Pulse Oximetry 100 100 100 Oxygen Delivery Me thod Nasal Cannula 03/11/23 13:01 03/11/23 13:16 03/11/23 13:30 Temperature Pulse Rate 65 59 L 56 L Pulse Rate [Pulse Oximeter] Pulse Rate [orthos tatic lying Pulse Oximeter] Pulse Rate [orthos tatic sitting Puls e Oximeter] Pulse Rate [orthos tatic standing Pul se Oximeter] Respiratory Rate 19 17 23 Blood Pressure 105/61 100/66 Blood Pressure [Ri ght Upper Arm] Blood Pressure [or thostatic lying Ri ght Arm] Blood Pressure [or thostatic sitting Right Arm] Blood Pressure [or thostatic standing Right Arm] Pulse Oximetry 100 99 98 Oxygen Delivery Me thod 03/11/23 13:31 Temperature Pulse Rate 59 L Pulse Rate [Pulse Oximeter] Pulse Rate [orthos tatic lying Pulse Oximeter] Pulse Rate [orthos tatic sitting Puls e Oximeter] Pulse Rate [orthos tatic standing Pul se Oximeter] Respiratory Rate 12 Blood Pressure 118/87 Blood Pressure [Ri ght Upper Arm] Blood Pressure [or thostatic lying Ri ght Arm] Blood Pressure [or thostatic sitting Right Arm] Blood Pressure [or thostatic standing Right Arm] Pulse Oximetry 100 Oxygen Delivery Me thod <Carmencita Gallegos MD - Last Filed: 03/11/23 20:36> Vital Signs, click to edit/add: Vital Signs - 24 hr 03/11/23 08:16 03/11/23 09:00 03/11/23 09:07 Temperature 96.7 F L Pulse Rate 100 Pulse Rate [Pulse Oximeter] 105 H Pulse Rate [orthos tatic lying Pulse Oximeter] Pulse Rate [orthos tatic sitting Puls e Oximeter] Pulse Rate [orthos tatic standing Pul se Oximeter] Respiratory Rate 18 Blood Pressure Blood Pressure [Ri ght Upper Arm] 100/66 111/78 Blood Pressure [or thostatic lying Ri ght Arm] Blood Pressure [or thostatic sitting Right Arm] Blood Pressure [or thostatic standing Right Arm] Pulse Oximetry 97 99 Oxygen Delivery Me thod Room Air 03/11/23 09:30 03/11/23 09:31 03/11/23 10:14 Temperature Pulse Rate 114 H 111 H 109 H Pulse Rate [Pulse Oximeter] Pulse Rate [orthos tatic lying Pulse Oximeter] Pulse Rate [orthos tatic sitting Puls e Oximeter] Pulse Rate [orthos tatic standing Pul se Oximeter] Respiratory Rate Blood Pressure 111/75 Blood Pressure [Ri ght Upper Arm] Blood Pressure [or thostatic lying Ri ght Arm] Blood Pressure [or thostatic sitting Right Arm] Blood Pressure [or thostatic standing Right Arm] Pulse Oximetry 98 98 93 Oxygen Delivery Me thod 03/11/23 10:30 03/11/23 10:31 03/11/23 11:00 Temperature Pulse Rate 117 H 115 H 112 H Pulse Rate [Pulse Oximeter] Pulse Rate [orthos tatic lying Pulse Oximeter] Pulse Rate [orthos tatic sitting Puls e Oximeter] Pulse Rate [orthos tatic standing Pul se Oximeter] Respiratory Rate Blood Pressure 111/72 Blood Pressure [Ri ght Upper Arm] Blood Pressure [or thostatic lying Ri ght Arm] Blood Pressure [or thostatic sitting Right Arm] Blood Pressure [or thostatic standing Right Arm] Pulse Oximetry 98 99 98 Oxygen Delivery Me thod 03/11/23 11:01 03/11/23 11:30 03/11/23 11:31 Temperature Pulse Rate 107 H 109 H 116 H Pulse Rate [Pulse Oximeter] Pulse Rate [orthos tatic lying Pulse Oximeter] Pulse Rate [orthos tatic sitting Puls e Oximeter] Pulse Rate [orthos tatic standing Pul se Oximeter] Respiratory Rate Blood Pressure 115/77 123/81 Blood Pressure [Ri ght Upper Arm] Blood Pressure [or thostatic lying Ri ght Arm] Blood Pressure [or thostatic sitting Right Arm] Blood Pressure [or thostatic standing Right Arm] Pulse Oximetry 97 99 98 Oxygen Delivery Me thod 03/11/23 11:32 03/11/23 11:33 03/11/23 11:50 Temperature Pulse Rate 126 H Pulse Rate [Pulse Oximeter] Pulse Rate [orthos tatic lying Pulse Oximeter] 105 H Pulse Rate [orthos tatic sitting Puls e Oximeter] 112 H Pulse Rate [orthos tatic standing Pul se Oximeter] 122 H Respiratory Rate Blood Pressure 108/87 100/75 Blood Pressure [Ri ght Upper Arm] Blood Pressure [or thostatic lying Ri ght Arm] 123/81 Blood Pressure [or thostatic sitting Right Arm] 108/87 Blood Pressure [or thostatic standing Right Arm] 100/75 Pulse Oximetry 98 Oxygen Delivery Vt thod 03/11/23 12:00 03/11/23 12:01 03/11/23 12:02 Temperature Pulse Rate 126 H 116 H 116 H Pulse Rate [Pulse Oximeter] Pulse Rate [orthos tatic lying Pulse Oximeter] Pulse Rate [orthos tatic sitting Puls e Oximeter] Pulse Rate [orthos tatic standing Pul se Oximeter] Respiratory Rate Blood Pressure 113/86 Blood Pressure [Ri ght Upper Arm] Blood Pressure [or thostatic lying Ri ght Arm] Blood Pressure [or thostatic sitting Right Arm] Blood Pressure [or thostatic standing Right Arm] Pulse Oximetry 90 99 96 Oxygen Delivery Me thod 03/11/23 12:18 03/11/23 12:30 03/11/23 12:31 Temperature Pulse Rate 107 H 107 H 99 Pulse Rate [Pulse Oximeter] Pulse Rate [orthos tatic lying Pulse Oximeter] Pulse Rate [orthos tatic sitting Puls e Oximeter] Pulse Rate [orthos tatic standing Pul se Oximeter] Respiratory Rate 21 19 Blood Pressure 125/84 119/96 H Blood Pressure [Ri ght Upper Arm] Blood Pressure [or thostatic lying Ri ght Arm] Blood Pressure [or thostatic sitting Right Arm] Blood Pressure [or thostatic standing Right Arm] Pulse Oximetry 99 99 99 Oxygen Delivery Me thod 03/11/23 12:48 03/11/23 12:52 03/11/23 13:00 Temperature Pulse Rate 61 59 L Pulse Rate [Pulse Oximeter] Pulse Rate [orthos tatic lying Pulse Oximeter] Pulse Rate [orthos tatic sitting Puls e Oximeter] Pulse Rate [orthos tatic standing Pul se Oximeter] Respiratory Rate 16 Blood Pressure 135/81 Blood Pressure [Ri ght Upper Arm] Blood Pressure [or thostatic lying Ri ght Arm] Blood Pressure [or thostatic sitting Right Arm] Blood Pressure [or thostatic standing Right Arm] Pulse Oximetry 100 100 100 Oxygen Delivery Me thod Nasal Cannula 03/11/23 13:01 03/11/23 13:16 03/11/23 13:30 Temperature Pulse Rate 65 59 L 56 L Pulse Rate [Pulse Oximeter] Pulse Rate [orthos tatic lying Pulse Oximeter] Pulse Rate [orthos tatic sitting Puls e Oximeter] Pulse Rate [orthos tatic standing Pul se Oximeter] Respiratory Rate 19 17 23 Blood Pressure 105/61 100/66 Blood Pressure [Ri ght Upper Arm] Blood Pressure [or thostatic lying Ri ght Arm] Blood Pressure [or thostatic sitting Right Arm] Blood Pressure [or thostatic standing Right Arm] Pulse Oximetry 100 99 98 Oxygen Delivery Me thod 03/11/23 13:31 Temperature Pulse Rate 59 L Pulse Rate [Pulse Oximeter] Pulse Rate [orthos tatic lying Pulse Oximeter] Pulse Rate [orthos tatic sitting Puls e Oximeter] Pulse Rate [orthos tatic standing Pul se Oximeter] Respiratory Rate 12 Blood Pressure 118/87 Blood Pressure [Ri ght Upper Arm] Blood Pressure [or thostatic lying Ri ght Arm] Blood Pressure [or thostatic sitting Right Arm] Blood Pressure [or thostatic standing Right Arm] Pulse Oximetry 100 Oxygen Delivery Me thod <Mikie Benites DO - Last Filed: 03/11/23 21:08> Documenting provider has reviewed patient's vital signs: yes <Carmencita Gallegos MD - Last Filed: 03/11/23 20:36> Common normals: no apparent distress, oriented x3, no limitations, healthy appearing, alert and well nourished <Carmencita Gallegos MD - Last Filed: 03/11/23 20:36> Nutritional appearance: thin <Carmencita Gallegos MD - Last Filed: 03/11/23 20:36> Orientation/consciousness: Yes awake, Yes oriented to person, Yes oriented to place and Yes oriented to time <Carmencita Gallegos MD - Last Filed: 03/11/23 20:36> HENMT: Common normals: normocephalic, head/scalp atraumatic, external ears normal, external nose normal, oropharynx normal, dentition normal and gingiva normal <Carmencita Gallegos MD - Last Filed: 03/11/23 20:36> Head and scalp: normocephalic and atraumatic <Carmencita Gallegos MD - Last Filed: 03/11/23 20:36> Nose: external nose normal <Carmencita Gallegos MD - Last Filed: 03/11/23 20:36> External ear: external ears normal <Carmencita Gallegos MD - Last Filed: 03/11/23 20:36> Eye: Common normals: PERRL, EOMs intact bilaterally, conjunctivae normal and no scleral icterus <Carmencita Gallegos MD - Last Filed: 03/11/23 20:36> Conjunctiva: conjunctiva(e) normal <Carmencita Gallegos MD - Last Filed: 03/11/23 20:36> Pupil: PERRL <MD Vasiliy Portillo Last Filed: 03/11/23 20:36> Neck & C-Spine: Common normals: full ROM, no lymphadenopathy, supple, no meningeal signs, no JVD and thyroid normal <Carmencita Gallegos MD - Last Filed: 03/11/23 20:36> Thyroid: thyroid normal <MD Vasiliy Portillo Last Filed: 03/11/23 20:36> Chest: Common normals: inspection of chest normal and palpation of chest normal <Carmencita Gallegos MD - Last Filed: 03/11/23 20:36> Resp: Common normals: normal respiratory effort, no retractions, no use of accessory muscles and clear to auscultation bilaterally <MD Vasiliy Portillo Last Filed: 03/11/23 20:36> Effort & inspection: able to speak in complete sentences <Carmencita Gallegos MD - Last Filed: 03/11/23 20:36> Auscultation: clear to auscultation bilaterally <Carmencita Gallegos MD - Last Filed: 03/11/23 20:36> Cardio: Common normals: no JVD, S1 normal heart sound, S2 normal heart sound and no murmurs <Carmencita Gallegos MD - Last Filed: 03/11/23 20:36> Rate: tachycardic <MD Vasiliy Portillo Last Filed: 03/11/23 20:36> Rhythm: abnormal rhythm irregularly irregular <Carmencita Gallegos MD - Last Filed: 03/11/23 20:36> Heart sounds: S1 normal and S2 normal <Carmencita Gallegos MD - Last Filed: 03/11/23 20:36> GI: Common normals: Normal to inspection, nondistended, normoactive bowel sounds present, soft to palpation, non-tender, no hepatosplenomegaly and no masses <Carmencita Gallegos MD - Last Filed: 03/11/23 20:36> Palpation: soft and no hepatosplenomegaly <MD Vasiliy Portillo Last Filed: 03/11/23 20:36> Back & Pelvis: Common normals: thoracic and lumbar spine normal to inspection and no thoracic nor lumbar tenderness <Carmencita Gallegos MD - Last Filed: 03/11/23 20:36> Extremity: Common normals: normal to inspection, full ROM, no calf tenderness and no pedal edema <MD Vasiliy Portillo Last Filed: 03/11/23 20:36> Neuro: Nati Coma Scale: document GCS findings [place] coma scale eye opening: Spontaneous (4) Nati coma scale verbal response: Orientated (5) [place] coma scale motor response: Obey commands (6) Nati coma scale total score: 15 <Carmencita Gallegos MD - Last Filed: 03/11/23 20:36> Erie Coma Scale: document GCS findings Nati coma scale total score: 15 <Mikie Benites DO - Last Filed: 03/11/23 21:08> Common normals: oriented x3, moves all extremities and no focal motor deficits <Carmencita Gallegos MD - Last Filed: 03/11/23 20:36> Sensorium/orientation: awake, alert, oriented to person, oriented to place and oriented to time <Carmencita Gallegos MD - Last Filed: 03/11/23 20:36> Meningeal signs: no meningeal signs <Carmencita Gallegos MD - Last Filed: 03/11/23 20:36> Course Course ED Course: This is a patient with hypotension at home, need to rule out metabolic, infectious, cardiopulmonary causes. It simply could just be diminished hydration status in a slender 88-year-old female. Will give her another L of fluids. Will do a full workup. Certainly need to consider obtaining urinalysis for possible UTI is the source given her increased nocturia overnight. She has no pain, is feeling better. We will have her on cardiac monitoring and pulse oximetry. Guide therapy accordingly pending our workup. Will get a portable chest x-ray. <Carmencita Gallegos MD - Last Filed: 03/11/23 20:36> Reevaluation(s) Time of Reevaluation #1: 09:42 <Carmencita Gallegos MD - Last Filed: 03/11/23 20:36> Reevaluation #1: Have reviewed with Lauro, her and son who more now here the concern on the chest x-ray with increased focal infiltrate in the right lower side. We will be getting a chest CT to help us further differentiate if this could be infectious like pneumonia, worsening area of endometrial cancer metastases verses even scarring from radiation. She is not having any symptoms of coughing or shortness of breath or any respiratory symptoms for that matter. She states she is feeling much better after the IV fluids. <Carmencita Gallegos MD - Last Filed: 03/11/23 20:36> Time of Reevaluation #2: 10:59 <Carmencita Gallegos MD - Last Filed: 10/02/23 20:36> Reevaluation #2: Reviewed with patient and her family that the CT is looking like inflammatory change in this right side, likely from the radiation. She is still in atrial fibrillation looking at her monitor, rates in the lower 100s. Sometimes I see her in the upper 90s. <Carmencita Gallegos MD - Last Filed: 03/11/23 20:36> Time of Reevaluation #3: 12:57 <Carmencita Gallegos MD - Last Filed: 03/11/23 20:36> Reevaluation #3: Cardioversion was completed. Dr. Benites was in attendance for anesthesia, propofol was used. Total of 50 mg of propofol was given IV per him, please see his note. She was on appropriate monitoring. She converted it with 120 joules synchronized electricity. Post procedural EKG showing a sinus bradycardia, 59 beats per minute. Nonspecific ST segment changes, overall improved from her prior in the atrial fibrillation. QT corrected 453 milliseconds. Nursing staff and respiratory therapy are still in attendance as she is still somewhat sleepy. Will make sure that she meets post sedation criteria and is not having any significant side effects prior to discharge. <Carmencita Gallegos MD - Last Filed: 03/11/23 20:36> Consultations Consultation #1: Spoke with cardiology on-call for [facility]. They agree with cardioversion. Nursing staff did subsequently bringing me her orthostatic vitals and she is indeed orthostatic. Lying blood pressure is 123/81 with a pulse 105, sitting was 108/87 with a pulse of 112, standing blood pressure went to 100/75 with a pulse of 122. Did subsequently review with her and her family the plan for cardioversion. We went over risks benefits and complications, complications from cardioversion as well as sedation. She has not eaten anything since yesterday. <Carmencita Gallegos MD - Last Filed: 03/11/23 20:36> Time: 11:27 <Carmencita Gallegos MD - Last Filed: 03/11/23 20:36> Vital Signs Vital signs: Initial Vital Signs Temperature 96.7 F L 03/11/23 08:16 Temperature Source Temporal Artery Scan 03/11/23 08:16 Pulse Rate 105 H 10/02/23 08:16 Respiratory Rate 18 03/11/23 08:16 Blood Pressure 100/66 03/11/23 08:16 Blood Pressure Mean 77 03/11/23 08:16 Blood Pressure Position Supine 03/11/23 08:16 Pulse Oximetry 97 03/11/23 08:16 Oxygen Delivery Method Room Air 03/11/23 08:16 Vital Signs Temperature 96.7 F L 03/11/23 08:16 Pulse Rate 105 H 03/11/23 08:16 Respiratory Rate 18 03/11/23 08:16 Blood Pressure 100/66 03/11/23 08:16 Pulse Oximetry 97 03/11/23 08:16 Oxygen Delivery Method Room Air 03/11/23 08:16 Temperature 96.7 F L 03/11/23 08:16 Pulse Rate 59 L 03/11/23 13:31 Respiratory Rate 12 03/11/23 13:31 Blood Pressure 118/87 03/11/23 13:31 Pulse Oximetry 100 03/11/23 13:31 Oxygen Delivery Method Nasal Cannula 03/11/23 12:48 <Carmencita Gallegos MD - Last Filed: 03/11/23 20:36> Initial Vital Signs Temperature 96.7 F L 03/11/23 08:16 Temperature Source Temporal Artery Scan 03/11/23 08:16 Pulse Rate 105 H 03/11/23 08:16 Respiratory Rate 18 03/11/23 08:16 Blood Pressure 100/66 03/11/23 08:16 Blood Pressure Mean 77 03/11/23 08:16 Blood Pressure Position Supine 03/11/23 08:16 Pulse Oximetry 97 03/11/23 08:16 Oxygen Delivery Method Room Air 03/11/23 08:16 Vital Signs Temperature 96.7 F L 03/11/23 08:16 Pulse Rate 105 H 03/11/23 08:16 Respiratory Rate 18 03/11/23 08:16 Blood Pressure 100/66 03/11/23 08:16 Pulse Oximetry 97 03/11/23 08:16 Oxygen Delivery Method Room Air 03/11/23 08:16 Temperature 96.7 F L 03/11/23 08:16 Pulse Rate 59 L 03/11/23 13:31 Respiratory Rate 12 03/11/23 13:31 Blood Pressure 118/87 03/11/23 13:31 Pulse Oximetry 100 03/11/23 13:31 Oxygen Delivery Method Nasal Cannula 03/11/23 12:48 <Mikie Benites DO - Last Filed: 03/11/23 21:08> MDM - Weakness Lab Data Attestation: I reviewed the patient's lab results. <Camrencita Gallegos MD - Last Filed: 03/11/23 20:36> Labs: Lab Results 03/11/23 03/11/23 03/11/23 Range/Units 08:33 08:34 08:50 WBC 2.24 L (4.50-11.00) K/uL RBC 4.14 (4.00-5.20) m/uL Hgb 12.3 (12.0-16.0) gm/dL Hct 37.9 (33.0-51.0) % MCV 92 (80-100) fL MCH 30 (26-34) pg MCHC 33 (32-36) gm/dL RDW Coeff of Reginaldo 13.1 (11.5-15.5) % Plt Count 113 L (140-440) K/uL Neut % (Auto) 68.7 (42.0-72.0) % Lymph % (Auto) 18.3 L (20-44) % [place] % (Auto) 9.4 (0.0-11.0) % Eos % (Auto) 2.7 (0.0-7.0) % Baso % (Auto) 0.9 (0.0-3.0) % Neut # (Auto) 1.50 L (1.7-7.0) K/uL Lymph # (Auto) 0.40 L (0.90-2.90) K/uL [place] # (Auto) 0.20 (0.00-0.90) K/UL Eos # (Auto) 0.10 (0.00-0.50) K/uL Baso # (Auto) 0.00 (0.00-0.30) K/uL Abs Immat Gran (auto) 0.00 (0.00-0.30) K/uL Imm/Tot Granulo (auto) 0.0 % Sodium 139 (135-149) mmol/L Potassium 4.2 (3.6-5.1) mmol/L Chloride 110 (96-114) mmol/L Carbon Dioxide 24 (20-32) mmol/L Anion Gap 5 L (7-15) mEq/L BUN 23 (7-30) mg/dL Creatinine 0.6 (0.5-1.5) mg/dL Estimated Creat Clear 33.41 Estimated GFR 86 ml/min Glucose 133 H (60-115) mg/dL Lactate 1.1 (0.5-1.9) mmol/L Calcium 9.1 (8.4-10.6) mg/dL Magnesium 1.9 (1.5-2.6) mg/dL Total Bilirubin 0.4 (0.1-1.5) mg/dL AST 30 (12-35) U/L ALT 19 (4-35) U/L Alkaline Phosphatase 51 (40-150) U/L Troponin I < 0.01 L (0.01-0.04) ng/mL C-Reactive Protein < 0.5 L (0.5-1.0) mg/dL NT-Pro-B Natriuret Pep 2030 pg/mL Total Protein 5.8 L (6.0-8.3) g/dL Albumin 3.4 (3.3-5.0) g/dL Urine Color Yellow (Yellow) Urine Appearance Clear (Clear) Urine pH 8.5 (5.0-8.5) Ur Specific [place] 1.020 (1.000-1.030) Urine Protein Negative (Negative) Urine Glucose (UA) Negative (Negative) Urine Ketones Negative (Negative) Urine Blood Negative (Negative) Urine Nitrite Negative (Negative) Urine Bilirubin Negative (Negative) Urine Urobilinogen 0.2 (0.2-1.0) Ur Leukocyte Esterase Negative (Negative) Urine RBC 0-2 (0-2) Urine WBC 0-2 (0-5) Ur Squamous Epith Cells Few (None-Few) Urine Bacteria None (None) SARS-CoV-2 (PCR) Negative SARS-CoV-2 (Negative) 03/11/23 Range/Units 12:00 WBC (4.50-11.00) K/uL RBC (4.00-5.20) m/uL Hgb (12.0-16.0) gm/dL Hct (33.0-51.0) % MCV (80-100) fL MCH (26-34) pg MCHC (32-36) gm/dL RDW Coeff of Reginaldo (11.5-15.5) % Plt Count (140-440) K/uL Neut % (Auto) (42.0-72.0) % Lymph % (Auto) (20-44) % [place] % (Auto) (0.0-11.0) % Eos % (Auto) (0.0-7.0) % Baso % (Auto) (0.0-3.0) % Neut # (Auto) (1.7-7.0) K/uL Lymph # (Auto) (0.90-2.90) K/uL [place] # (Auto) (0.00-0.90) K/UL Eos # (Auto) (0.00-0.50) K/uL Baso # (Auto) (0.00-0.30) K/uL Abs Immat Gran (auto) (0.00-0.30) K/uL Imm/Tot Granulo (auto) % Sodium (135-149) mmol/L Potassium (3.6-5.1) mmol/L Chloride (96-114) mmol/L Carbon Dioxide (20-32) mmol/L Anion Gap (7-15) mEq/L BUN (7-30) mg/dL Creatinine (0.5-1.5) mg/dL Estimated Creat Clear Estimated GFR ml/min Glucose (60-115) mg/dL Lactate (0.5-1.9) mmol/L Calcium (8.4-10.6) mg/dL Magnesium (1.5-2.6) mg/dL Total Bilirubin (0.1-1.5) mg/dL AST (12-35) U/L ALT (4-35) U/L Alkaline Phosphatase (40-150) U/L Troponin I < 0.01 L (0.01-0.04) ng/mL C-Reactive Protein (0.5-1.0) mg/dL NT-Pro-B Natriuret Pep pg/mL Total Protein (6.0-8.3) g/dL Albumin (3.3-5.0) g/dL Urine Color (Yellow) Urine Appearance (Clear) Urine pH (5.0-8.5) Ur Specific [place] (1.000-1.030) Urine Protein (Negative) Urine Glucose (UA) (Negative) Urine Ketones (Negative) Urine Blood (Negative) Urine Nitrite (Negative) Urine Bilirubin (Negative) Urine Urobilinogen (0.2-1.0) Ur Leukocyte Esterase (Negative) Urine RBC (0-2) Urine WBC (0-5) Ur Squamous Epith Cells (None-Few) Urine Bacteria (None) SARS-CoV-2 (PCR) (Negative) <Carmencita Gallegos MD - Last Filed: 03/11/23 20:36> Lab Results 03/11/23 03/11/23 03/11/23 Range/Units 08:33 08:34 08:50 WBC 2.24 L (4.50-11.00) K/uL RBC 4.14 (4.00-5.20) m/uL Hgb 12.3 (12.0-16.0) gm/dL Hct 37.9 (33.0-51.0) % MCV 92 (80-100) fL MCH 30 (26-34) pg MCHC 33 (32-36) gm/dL RDW Coeff of Reginaldo 13.1 (11.5-15.5) % Plt Count 113 L (140-440) K/uL Neut % (Auto) 68.7 (42.0-72.0) % Lymph % (Auto) 18.3 L (20-44) % [place] % (Auto) 9.4 (0.0-11.0) % Eos % (Auto) 2.7 (0.0-7.0) % Baso % (Auto) 0.9 (0.0-3.0) % Neut # (Auto) 1.50 L (1.7-7.0) K/uL Lymph # (Auto) 0.40 L (0.90-2.90) K/uL [place] # (Auto) 0.20 (0.00-0.90) K/UL Eos # (Auto) 0.10 (0.00-0.50) K/uL Baso # (Auto) 0.00 (0.00-0.30) K/uL Abs Immat Gran (auto) 0.00 (0.00-0.30) K/uL Imm/Tot Granulo (auto) 0.0 % Sodium 139 (135-149) mmol/L Potassium 4.2 (3.6-5.1) mmol/L Chloride 110 (96-114) mmol/L Carbon Dioxide 24 (20-32) mmol/L Anion Gap 5 L (7-15) mEq/L BUN 23 (7-30) mg/dL Creatinine 0.6 (0.5-1.5) mg/dL Estimated Creat Clear 33.41 Estimated GFR 86 ml/min Glucose 133 H (60-115) mg/dL Lactate 1.1 (0.5-1.9) mmol/L Calcium 9.1 (8.4-10.6) mg/dL Magnesium 1.9 (1.5-2.6) mg/dL Total Bilirubin 0.4 (0.1-1.5) mg/dL AST 30 (12-35) U/L ALT 19 (4-35) U/L Alkaline Phosphatase 51 (40-150) U/L Troponin I < 0.01 L (0.01-0.04) ng/mL C-Reactive Protein < 0.5 L (0.5-1.0) mg/dL NT-Pro-B Natriuret Pep 2030 pg/mL Total Protein 5.8 L (6.0-8.3) g/dL Albumin 3.4 (3.3-5.0) g/dL Urine Color Yellow (Yellow) Urine Appearance Clear (Clear) Urine pH 8.5 (5.0-8.5) Ur Specific [place] 1.020 (1.000-1.030) Urine Protein Negative (Negative) Urine Glucose (UA) Negative (Negative) Urine Ketones Negative (Negative) Urine Blood Negative (Negative) Urine Nitrite Negative (Negative) Urine Bilirubin Negative (Negative) Urine Urobilinogen 0.2 (0.2-1.0) Ur Leukocyte Esterase Negative (Negative) Urine RBC 0-2 (0-2) Urine WBC 0-2 (0-5) Ur Squamous Epith Cells Few (None-Few) Urine Bacteria None (None) SARS-CoV-2 (PCR) Negative SARS-CoV-2 (Negative) 03/11/23 Range/Units 12:00 WBC (4.50-11.00) K/uL RBC (4.00-5.20) m/uL Hgb (12.0-16.0) gm/dL Hct (33.0-51.0) % MCV (80-100) fL MCH (26-34) pg MCHC (32-36) gm/dL RDW Coeff of Reginaldo (11.5-15.5) % Plt Count (140-440) K/uL Neut % (Auto) (42.0-72.0) % Lymph % (Auto) (20-44) % [place] % (Auto) (0.0-11.0) % Eos % (Auto) (0.0-7.0) % Baso % (Auto) (0.0-3.0) % Neut # (Auto) (1.7-7.0) K/uL Lymph # (Auto) (0.90-2.90) K/uL [place] # (Auto) (0.00-0.90) K/UL Eos # (Auto) (0.00-0.50) K/uL Baso # (Auto) (0.00-0.30) K/uL Abs Immat Gran (auto) (0.00-0.30) K/uL Imm/Tot Granulo (auto) % Sodium (135-149) mmol/L Potassium (3.6-5.1) mmol/L Chloride (96-114) mmol/L Carbon Dioxide (20-32) mmol/L Anion Gap (7-15) mEq/L BUN (7-30) mg/dL Creatinine (0.5-1.5) mg/dL Estimated Creat Clear Estimated GFR ml/min Glucose (60-115) mg/dL Lactate (0.5-1.9) mmol/L Calcium (8.4-10.6) mg/dL Magnesium (1.5-2.6) mg/dL Total Bilirubin (0.1-1.5) mg/dL AST (12-35) U/L ALT (4-35) U/L Alkaline Phosphatase (40-150) U/L Troponin I < 0.01 L (0.01-0.04) ng/mL C-Reactive Protein (0.5-1.0) mg/dL NT-Pro-B Natriuret Pep pg/mL Total Protein (6.0-8.3) g/dL Albumin (3.3-5.0) g/dL Urine Color (Yellow) Urine Appearance (Clear) Urine pH (5.0-8.5) Ur Specific [place] (1.000-1.030) Urine Protein (Negative) Urine Glucose (UA) (Negative) Urine Ketones (Negative) Urine Blood (Negative) Urine Nitrite (Negative) Urine Bilirubin (Negative) Urine Urobilinogen (0.2-1.0) Ur Leukocyte Esterase (Negative) Urine RBC (0-2) Urine WBC (0-5) Ur Squamous Epith Cells (None-Few) Urine Bacteria (None) SARS-CoV-2 (PCR) (Negative) <Mikie Benites DO - Last Filed: 03/11/23 21:08> Imaging Data Chest x-ray: Attestation: I have reviewed the pertinent imaging results. <Carmencita Gallegos MD - Last Filed: 03/11/23 20:36> My impression: Can see a haziness on right lower side, no old chest x-ray to compare to. Await Radiology over-read. Did go over and review with our radiologist her current chest x-ray verses the CT that was done in January. This infiltrative area in the right base definitely looks much more prominent on the chest x-ray versus CT. He does agree that we should proceed with noncontrast chest CT to further evaluate this area. <Carmencita Gallegos MD - Last Filed: 03/11/23 20:36> Radiologist's impression: Patient: LAURO MORA Facility:?[facility] Patient ID:?[id number] Site Patient ID:?[id number]. Site :?[id number] Study:?XRay Chest 1 VIEW PORTABLE-03/11/2023 8:49:19 AM Ordering Physician:Judi Tse Final Report: INDICATION: WEAKNESS, HX AFIB AND MET ENDOMETRIAL CA TECHNIQUE: Chest 1 view COMPARISON: 07/13/2016 FINDINGS: Focal opacity within the right lateral lung base. Left lung clear. Mediastinum similar. No pleural effusion or CHF. No pneumothorax. Calcific tendinitis left shoulder. IMPRESSION: Right lateral basilar density, possible infiltrate. Dictated by Eddie Price MD @ 03/11/2023 9:22:42 AM (Electronic Signature) <Carmencita Gallegos MD - Last Filed: 03/11/23 20:36> CT scan - chest: Attestation: I have reviewed the pertinent imaging results. <Carmencita Gallegos MD - Last Filed: 03/11/23 20:36> Radiologist's impression: Patient: LAURO MORA Facility:?[facility] Patient ID:?[id number] Site Patient ID:?[id number]. Site :?[id number] Study:?CT Chest W/O-03/11/2023 10:08:09 AM Ordering Physician:Judi Tse Final Report: INDICATION: Infiltrate on chest x-ray with history of metastatic disease to the right lung. COMPARISON: January 10, 2023. TECHNIQUE: : CT examination of the chest was performed without contrast. Thin axial sections were obtained from above the apices of the lungs to the lung bases. Please note that all CT scans at this facility use dose modulation, iterative reconstruction, and/or weight-based dosing when appropriate to reduce radiation dose to as low as reasonably achievable. FINDINGS: : HEART and MEDIASTINUM: The heart size is normal. There is no mediastinal or hilar adenopathy or mass. There is no pericardial effusion. LUNGS: There are a few scattered nodules identified bilaterally. The largest on the left is in the left upper lobe on image 18 measuring 2.5 millimeters. This is unchanged. The largest on the right is in the superior segment of the right lower lobe immediately posterior to the fissure measuring 5.9 millimeters on image 36. This is unchanged. The opacity on the chest x-ray at the right base is a relatively flat/linear opacity. This was in an area of tree-in-bud nodularity on January 10, 2023. Tree-in-bud nodularity is usually inflammatory or infectious rather than malignant. Therefore I favor that this entire lesion is inflammatory though short interval follow-up is recommended PLEURAL SPACES: There is no pleural effusion, pneumothorax or pleural based mass. VISUALIZED UPPER ABDOMEN: No acute abnormality OSSEOUS STRUCTURES: Age-appropriate appearance. No acute fracture or destructive process. TUBES and LINES: A left-sided port is normally located IMPRESSION: 1. The opacity at the right lung base is favored to be inflammatory as outlined above. Follow-up to complete resolution is advised. 2. There are few scattered nodules bilaterally that are unchanged in number and size compared to January 10, 2023. These nodules are likely related to the patient`s known malignancy. Please note that all CT scans at this facility use dose modulation, iterative reconstruction, and/or weight-based dosing when appropriate to reduce radiation dose to as low as reasonably achievable. Dictated by Dante Walsh MD @ 03/11/2023 10:26:42 AM (Electronic Signature) <Carmencita Gallegos MD - Last Filed: 03/11/23 20:36> ECG Data Attestation: I personally reviewed and interpreted this ECG as follows: (Atrial fibrillation with RVR, rate 101 beats per minute. Q-waves anteriorly V1 and V2. Inferior ST downsloping as well as V3 through V6 with V5 having artifact. QT corrected 422 milliseconds.) <Carmencita Gallegos MD - Last Filed: 03/11/23 20:36> ECG interpretation date: 03/11/23 <Carmencita Gallegos MD - Last Filed: 03/11/23 20:36> ECG interpretation time: 08:50 <Carmencita Gallegos MD - Last Filed: 03/11/23 20:36> Prior ECG tracings: available for review (Comparison to 04/02/2022 which she was in sinus bradycardia, 56 beats per minute. No ST changes on that EKG.) <Carmencita Gallegos MD - Last Filed: 03/11/23 20:36> Discharge Plan Discharge Clinical Impression: Acute hypotension, Encounter for cardioversion procedure, Atrial fibrillation with rapid ventricular response <Carmencita Gallegos MD - Last Filed: 03/11/23 20:36> Patient Disposition: Home, Self-Care <Carmencita Gallegos MD - Last Filed: 03/11/23 20:36> Condition: Stable <Carmencita Gallegos MD - Last Filed: 03/11/23 20:36> Instructions: A-fib (Atrial Fibrillation) (ED) <Carmencita Gallegos MD - Last Filed: 03/11/23 20:36> Additional Instructions: Need to take your morning medicines when you get home but do not take the Eliquis as we did give you that here. Continue your usual nighttime medicines as you normally would. If you have concerns about feeling weak or woozy again, check pulse and blood pressure like you did this morning. This will certainly alert you to the fact of abnormalities of atrial fibrillation again. Need to contact her non destructive evaluation manager at [facility], see if they need to see you sooner than May. <Carmencita Gallegos MD - Last Filed: 03/11/23 20:36> Activity Level: Activity as Tolerated <Carmencita Gallegos MD - Last Filed: 03/11/23 20:36> Activity as Tolerated <Mikie Benites DO - Last Filed: 03/11/23 21:08> Prescriptions: No Action gabapentin 100 mg capsule 100 mg PO HS Qty: 100 3RF furosemide 20 mg tablet 20 mg PO QAM Eliquis 2.5 mg tablet 2.5 mg PO BID atorvastatin 10 mg tablet 10 mg PO DAILY cyanocobalamin (vitamin B-12) 500 mcg tablet 500 mcg PO DAILY flecainide 150 mg tablet See Rx Instructions PO BID Rx Instructions: 75 mg PO twice a day; fluticasone propionate [Flonase Allergy Relief] 50 mcg/actuation spray,suspension 2 spray intranasal DAILY PRN Rx Instructions: administer into each nostril multivitamin Tablet 1 tab PO DAILY omeprazole 20 mg capsule,delayed release(DR/EC) 20 mg PO BID oxybutynin chloride 5 mg tablet 5 mg PO BID potassium chloride 20 mEq tablet,ER particles/crystals 40 meq PO DAILY metoprolol tartrate 25 mg tablet 12.5 mg PO DAILY alendronate 70 mg tablet PO Patient Comments: [NO ORIGINAL SIG] <Carmencita Gallegos MD - Last Filed: 03/11/23 20:36> Follow Up/Referrals: Alanna Arrieta MD [Primary Care Provider] - <Carmencita Gallegos MD - Last Filed: 03/11/23 20:36> [facility] <Carmencita Gallegos MD - Last Filed: 03/11/23 20:36> Procedures Additional Procedures Procedure name: Procedure sedation <Mikie Benites DO - Last Filed: 03/11/23 21:08> Pre procedure diagnosis: AFib <Mikie Benites DO - Last Filed: 03/11/23 21:08> Post procedure diagnosis: AFib <Mikie Benites DO - Last Filed: 03/11/23 21:08> Written consent by: patient <Mikie Benites DO - Last Filed: 03/11/23 21:08> Verification/time out: correct patient, correct procedure and time out performed <Mikie Benites DO - Last Filed: 03/11/23 21:08> Estimated blood loss (if any): none <Mikie Benites DO - Last Filed: 03/11/23 21:08> Additional comments: Medication IV: Propofol - 50 mg Complication: Tolerated well without complication. No hypoxic episodes. <Mikie Benites DO - Last Filed: 03/11/23 21:08>
--- NOTE | 2023-03-11 08:32 | CRLHL7_ITS ---
For Patients: As a result of the Century Cures Act, medical imaging exams and procedure reports are released immediately into your electronic medical record. You may view this report before your referring provider. If you have questions, please contact your health care provider. INDICATION: WEAKNESS, HX AFIB AND MET ENDOMETRIAL CA TECHNIQUE: Chest 1 view COMPARISON: 07/13/2016 FINDINGS: Focal opacity within the right lateral lung base. Left lung clear. Mediastinum similar. No pleural effusion or CHF. No pneumothorax. Calcific tendinitis left shoulder. IMPRESSION: Right lateral basilar density, possible infiltrate. Dictated by Eddie Price MD @ 03/11/2023 9:22:42 AM (Electronically Signed)
[2023-03-11] MEDS: 0.9 % SODIUM CHLORIDE 1000 ml 1,000 ML 500 ML IV (08:45)
[2023-03-11 09:05] LABS: Lactate* 1.1 mmol/L (0.5-1.9)
[2023-03-11 09:07] LABS: Basophils Percent Auto 0.9 % (0.0-3.0); Eosinophils Percent Auto 2.7 % (0.0-7.0); Hematocrit 37.9 % (33.0-51.0); Hemoglobin* 12.3 gm/dL (12.0-16.0); Lymphocytes Percent Auto 18.3 % (20-44); Mean Corpuscular HGB Conc 33 gm/dL (32-36); Mean Corpuscular Hemoglobin 30 pg (26-34); Mean Corpuscular Volume 92 fL (80-100); Monocytes Percent Auto 9.4 % (0.0-11.0); Neutrophils Percent Auto 68.7 % (42.0-72.0); Platelet Count* 113 K/uL (140-440); RDW Coefficient of Variation % 13.1 % (11.5-15.5); Red Blood Count 4.14 m/uL (4.00-5.20); White Blood Count* 2.24 K/uL (4.50-11.00)
[2023-03-11 09:16] LABS: Slide Review Reflex No
[2023-03-11 09:25] LABS: Albumin* 3.4 g/dL (3.3-5.0); Chloride* 110 mmol/L (96-114)
[2023-03-11 09:26] LABS: Potassium* 4.2 mmol/L (3.6-5.1); Sodium* 139 mmol/L (135-149)
[2023-03-11 09:28] LABS: Bilirubin Total* 0.4 mg/dL (0.1-1.5); Creatinine* 0.6 mg/dL (0.5-1.5); Est. Creatinine Clearance* 33.41; Estimated Glomerular Filt Rate 86 ml/min
[2023-03-11 09:29] LABS: Alanine Aminotransferase* 19 U/L (4-35); Alkaline Phosphatase* 51 U/L (40-150); Anion Gap 5 mEq/L (7-15); Aspartate Amino Transferase* 30 U/L (12-35); Blood Urea Nitrogen* 23 mg/dL (7-30); Calcium* 9.1 mg/dL (8.4-10.6); Carbon Dioxide* 24 mmol/L (20-32); Glucose* 133 mg/dL (60-115); Magnesium* 1.9 mg/dL (1.5-2.6); Total Protein* 5.8 g/dL (6.0-8.3)
--- NOTE | 2023-03-11 09:38 | CRLHL7_ITS ---
For Patients: As a result of the Century Cures Act, medical imaging exams and procedure reports are released immediately into your electronic medical record. You may view this report before your referring provider. If you have questions, please contact your health care provider. INDICATION: Infiltrate on chest x-ray with history of metastatic disease to the right lung. COMPARISON: January 10, 2023. TECHNIQUE: : CT examination of the chest was performed without contrast. Thin axial sections were obtained from above the apices of the lungs to the lung bases. Please note that all CT scans at this facility use dose modulation, iterative reconstruction, and/or weight-based dosing when appropriate to reduce radiation dose to as low as reasonably achievable. FINDINGS: : HEART and MEDIASTINUM: The heart size is normal. There is no mediastinal or hilar adenopathy or mass. There is no pericardial effusion. LUNGS: There are a few scattered nodules identified bilaterally. The largest on the left is in the left upper lobe on image 18 measuring 2.5 millimeters. This is unchanged. The largest on the right is in the superior segment of the right lower lobe immediately posterior to the fissure measuring 5.9 millimeters on image 36. This is unchanged. The opacity on the chest x-ray at the right base is a relatively flat/linear opacity. This was in an area of tree-in-bud nodularity on January 10, 2023. Tree-in-bud nodularity is usually inflammatory or infectious rather than malignant. Therefore I favor that this entire lesion is inflammatory though short interval follow-up is recommended PLEURAL SPACES: There is no pleural effusion, pneumothorax or pleural based mass. VISUALIZED UPPER ABDOMEN: No acute abnormality OSSEOUS STRUCTURES: Age-appropriate appearance. No acute fracture or destructive process. TUBES and LINES: A left-sided port is normally located IMPRESSION: 1. The opacity at the right lung base is favored to be inflammatory as outlined above. Follow-up to complete resolution is advised. 2. There are few scattered nodules bilaterally that are unchanged in number and size compared to January 10, 2023. These nodules are likely related to the patient`s known malignancy. Please note that all CT scans at this facility use dose modulation, iterative reconstruction, and/or weight-based dosing when appropriate to reduce radiation dose to as low as reasonably achievable. Dictated by Dante Walsh MD @ 03/11/2023 10:26:42 AM (Electronically Signed)
[2023-03-11 09:50] LABS: C Reactive Protein* < 0.5 mg/dL (0.5-1.0); NT Pro B Type NatriureticPept* 2030 pg/mL; Troponin I* < 0.01 ng/mL (0.01-0.04)
[2023-03-11 09:54] LABS: SARS PCR* Negative SARS-CoV-2 (Negative)
[2023-03-11 10:58] LABS: Appearance Urine Clear (Clear); Bilirubin Urine Negative (Negative); Blood Urine Negative (Negative); Color Urine Yellow (Yellow); Glucose Urine Negative (Negative); Ketones Urine Negative (Negative); Leukocyte Esterase Urine Negative (Negative); Nitrite Urine Negative (Negative); Protein Urine Negative (Negative); Urobilinogen Urine 0.2 (0.2-1.0); pH Urine 8.5 (5.0-8.5)
[2023-03-11 11:03] LABS: RBC Urine 0-2 (0-2); Squamous Epithelial Cell Urine Few (None-Few); WBC Urine 0-2 (0-5)
[2023-03-11] MEDS: 0.9 % SODIUM CHLORIDE 500 ML 500 ML IV (12:28)
[2023-03-11] MEDS: APIXABAN 5 MG TABLET 2.5 MG PO (12:32)
[2023-03-11 12:58] LABS: Troponin I* < 0.01 ng/mL (0.01-0.04)
--- NOTE | 2023-03-11 13:06 | ED.NURSE ---
patient is waking up after sedation for a cardioversion. patient has family at the bedside. HR 66-105/61-12-100% with O2 at 1 liter via nc. decreased from 3 liters.
--- NOTE | 2023-03-11 13:48 | ED.NURSE ---
1250 pt cardioverted, 1 shock at 120 joules. Jeovanny BUI at bedside. Dr. Florez and Dr. Benites at bedside. pt tolerated well.
== END 2023-03-11 14:19 | disposition home or self-care (01) ==
PROVIDERS: Emergency Provider Family Medicine; PCP Family Medicine
DX: I48.91 Unspecified atrial fibrillation (principal); I95.9 Hypotension, unspecified
CPT/HCPCS: 36415; 71045; 71250; 80053; 81001; 83605; 83735; 83880; 84484; 85025; 86140; 87040; 87635; 92960; 93005; 94761; 96360; 96361; 99283; 99285; A9270; J7030; J7120

== ENCOUNTER 2023-05-16 14:58 | Outpatient (CLI) | payer MEDICARE, SELFPAY ==
--- NOTE | 2023-05-16 15:30 | PE_ITS ---
[facility] [address] [facility] [address] Phone:?[phone] Fax:?[phone] Referring Physician Information: Sandy Valdez M.D. [address] [facility] [address] Phone:?[phone] Fax:?[phone] Patient:Dave Kennedy D.O.B:?1935 Sex:?Female Phone:?[phone] [facility] MRN:?[id number] Exam Date:?05/16/2023 EXAM: PET/CT EYES TO THIGHS, CANCER RESTAGING CLINICAL INFORMATION: Endometrial cancer. TECHNICAL INFORMATION: Helical acquisition of data was obtained from the orbits to the upper thighs with reconstruction of 3.75 mm thick images at 3.[address] data was used for attenuation correction. PET scanning was performed through the same anatomic range 60 minutes following administration of 11.94 mCi of 18-FDG delivered intravenously. The patient's glucose at the time of the injection was 97 mg/dL. PET, CT and PET/CT fusion images are interpreted using a computer viewing workstation. PET, CT and PET/CT fusion images were archived and saved in the patient's permanent medical record. COMPARISON: Chest CT from 03/11/2023, CT CAP from 01/10/2023, PET-CT from 09/06/2022. INTERPRETATION: Head and Neck: There are no abnormal hypermetabolic foci within the head or neck. There is physiologic uptake in the intracranial soft tissues. Chest: Stable opacity in the right lower lobe treatment zone shows central clearing and low level FDG uptake (SUVmax = 3.21), suggesting a benign etiology (e.g., radiation fibrosis). No distinct viable residua. No new, enlarging, markedly hypermetabolic, or otherwise worrisome pulmonary nodules or masses. No intrathoracic lymphadenopathy size, morphology, or metabolic rate. Background mediastinal blood pool uptake has a maximum SUV of 3.52. Left chest port catheter terminates at the cavoatrial junction. Abdomen and Pelvis: There are no abnormal hypermetabolic foci within the abdomen or pelvis. Background hepatic parenchymal uptake has a maximum SUV of 3.91. There is physiologic excretion of radiotracer in the urine and bowel. Skeleton, Musculature, and Integument: No abnormal hypermetabolic foci within the skeleton. No paz osteoblastic or osteolytic disease. CONCLUSION: 1. No abnormal FDG uptake to indicate active malignancy. 2. 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 Electronically signed on 05/17/2023 10:43:00 AM by Jarrett Rich M.D.
== END 2023-05-16 14:59 | disposition home or self-care (01) ==
LOC: RAD 14:59
PROVIDERS: PCP Family Medicine; Visit Provider Internal Medicine Hematology & Oncology
DX: C54.1 Malignant neoplasm of endometrium (principal); J84.10 Pulmonary fibrosis, unspecified
CPT/HCPCS: 78815; A9552

== ENCOUNTER 2023-05-24 08:55 | Outpatient (CLI) | payer MEDICARE, SELFPAY | END 2023-05-24 08:56 | disposition home or self-care (01) | LOC: AMB 05-27 08:39 | PROVIDERS: PCP Family Medicine; Visit Provider Emergency Medicine Emergency Medical Services | DX: I95.9 Hypotension, unspecified (principal); I49.9 Cardiac arrhythmia, unspecified | CPT/HCPCS: A0425; A0427 ==

== ENCOUNTER 2023-05-24 09:32 | Emergency (ER) | payer MEDICARE, SELFPAY ==
[2023-05-24] VITALS (76 sets, daily range): BP systolic 73–128; BP diastolic 46–100; PULSE 50–127; RESP 6–26; TEMP 36.4; O2SAT 72–100
--- NOTE | 2023-05-24 10:58 | ED.GENADULT ---
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 She has completed chemotherapy a couple years ago. She has history of paroxysmal atrial fibrillation and reports feeling some symptoms of weakness last night and again this morning. She arrives here with atrial fibrillation and a rate of around 120 beats per minute. She denies having any chest pain or shortness of breath. She does take flecainide and is due to take this at 10:00 a.m. and 10:00 p.m.. She is also scheduled to have a pacer in place as her rate controlling medicine have caused her to have bradycardia. She states she is normally in sinus rhythm and did have a heart monitor recently that confirmed this. She is currently taking Eliquis and has been doing so for a few months. Related Data Home Medications Medication Instructions Recorded Confirmed apixaban 2.5 mg tablet (Eliquis) 2.5 mg PO BID 12/18/21 05/20/23 atorvastatin 10 mg tablet 10 mg PO DAILY 12/18/21 05/20/23 cyanocobalamin (vitamin B-12) 500 500 mcg PO DAILY 12/18/21 05/20/23 mcg tablet flecainide 150 mg tablet See Rx Instructions PO BID 12/18/21 05/20/23 fluticasone propionate 50 2 spray intranasal DAILY PRN 12/18/21 05/20/23 mcg/actuation nasal spray,suspension (Flonase Allergy Relief) multivitamin 1 tab PO DAILY 12/18/21 05/20/23 omeprazole 20 mg capsule,delayed 20 mg PO BID 12/18/21 05/20/23 release oxybutynin chloride 5 mg tablet 5 mg PO BID 12/18/21 05/20/23 potassium chloride 20 mEq 40 meq PO DAILY 12/18/21 05/20/23 tablet,extended release(part/cryst) metoprolol tartrate 25 mg tablet 12.5 mg PO DAILY 09/27/22 05/20/23 furosemide 20 mg tablet 20 mg PO QAM 01/16/23 05/20/23 alendronate 70 mg tablet mg PO 03/11/23 05/20/23 Previous Rx's Medication Instructions Recorded gabapentin 100 mg capsule 100 mg PO HS #100 caps 10/25/23 Allergies Allergy/AdvReac Type Severity Reaction Status Date / Time metformin Allergy Verified 05/24/23 09:34 Review of Systems Status of ROS: Reports: 10 or more systems reviewed and unremarkable except as noted in History and below Narrative: Constitutional: No fevers, no weight gain or loss. Eyes: No discharge. No vision changes. HENT: No congestion, no sore throat, no ear pain. Cardiovascular: No chest pain, no palpitations. Respiratory: No shortness of breath, no wheezes, no cough. Gastrointestinal: No abdominal pain, no vomiting, no diarrhea. Genitourinary: No dysuria, no hematuria. Musculoskeletal: Normal range of motion. Skin: No rashes, no pruritis. Neurological: No dizziness, weakness, sensory change, speech change. Endo/Heme/Allergies: No bruising or bleeding. No polydipsia. Pysch: no suicidality, no anxiety, no insomnia. All other systems reviewed and are negative. 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 - Drug-induced polyneuropathy (ICD-10) ?T45.1X5A - Adverse effect of antineoplastic and immunosuppressive drugs, initial encounter (ICD-10) Lung nodule ?R91.1 - Solitary pulmonary nodule (ICD-10) Surgical History H/O total hysterectomy with bilateral salpingo-oophorectomy (BSO) ?Z90.710 - Acquired absence of both cervix and uterus (ICD-10) ?Z90.722 - Acquired absence of ovaries, bilateral (ICD-10) ?Z90.79 - Acquired absence of other genital organ(s) (ICD-10) 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 HEENT: Normocephalic, atraumatic. Neck: Normal range of motion. Nontender. Supple. Heart: Irregular. No murmurs. Tachycardia. Intact distal pulses. Lungs: Clear to auscultation. No chest discomfort. No wheezes, rhonchi, or rales. Abdomen: Normal bowel sounds. Nontender. No rebound tenderness. Genitalia: Deferred. Back: No midline tenderness. Normal range of motion. Extremities: Normal range of motion. No injury. No pedal edema. Skin: Intact. No rash. Warm. No erythema or pallor. Neurologic: No altered sensation. No weakness. Alert and oriented. Psychiatric: No suicidality. No anxiety or depression. No insomnia. Nursing notes and vitals signs are reviewed. Const: Vital Signs, click to edit/add: Vital Signs - 24 hr 05/24/23 09:35 05/24/23 09:36 05/24/23 09:37 Temperature 97.6 F Pulse Rate 115 H 119 H Pulse Rate [Apical ] 122 H Respiratory Rate 26 H Blood Pressure 128/84 Blood Pressure [Le ft Upper Arm] 128/84 Pulse Oximetry 99 99 99 Oxygen Delivery Me thod Room Air 05/24/23 09:45 05/24/23 09:46 05/24/23 09:51 Temperature Pulse Rate 109 H 120 H 116 H Pulse Rate [Apical ] Respiratory Rate Blood Pressure 94/69 93/67 Blood Pressure [Le ft Upper Arm] Pulse Oximetry 99 98 98 Oxygen Delivery Me thod 05/24/23 10:00 05/24/23 10:01 05/24/23 10:02 Temperature Pulse Rate 103 H 115 H 104 H Pulse Rate [Apical ] Respiratory Rate Blood Pressure 99/69 Blood Pressure [Le ft Upper Arm] Pulse Oximetry 96 96 96 Oxygen Delivery Me thod 05/24/23 10:11 05/24/23 10:15 05/24/23 10:21 Temperature Pulse Rate 103 H 109 H 109 H Pulse Rate [Apical ] Respiratory Rate Blood Pressure 90/63 104/65 Blood Pressure [Le ft Upper Arm] Pulse Oximetry 96 95 96 Oxygen Delivery Me thod 05/24/23 10:30 05/24/23 10:31 05/24/23 10:41 Temperature Pulse Rate 100 116 H 122 H Pulse Rate [Apical ] Respiratory Rate Blood Pressure 100/75 115/100 H Blood Pressure [Le ft Upper Arm] Pulse Oximetry 96 96 97 Oxygen Delivery Me thod 05/24/23 10:45 05/24/23 10:51 05/24/23 11:06 Temperature Pulse Rate 116 H 115 H 117 H Pulse Rate [Apical ] Respiratory Rate Blood Pressure 99/73 Blood Pressure [Le ft Upper Arm] Pulse Oximetry 97 97 98 Oxygen Delivery Me thod 05/24/23 11:15 05/24/23 11:20 05/24/23 11:30 Temperature Pulse Rate 127 H 108 H 109 H Pulse Rate [Apical ] Respiratory Rate Blood Pressure 95/60 Blood Pressure [Le ft Upper Arm] Pulse Oximetry 72 L 99 96 Oxygen Delivery Me thod 05/24/23 11:32 05/24/23 11:35 Temperature Pulse Rate 76 74 Pulse Rate [Apical ] Respiratory Rate Blood Pressure 84/56 L 80/54 L Blood Pressure [Le ft Upper Arm] Pulse Oximetry 98 98 Oxygen Delivery Me thod Course Vital Signs Vital signs: Initial Vital Signs Temperature 97.6 F 05/24/23 09:35 Temperature Source Temporal Artery Scan 05/24/23 09:35 Pulse Rate 122 H 05/24/23 09:35 Pulse Rhythm Irregular 05/24/23 09:35 Respiratory Rate 26 H 05/24/23 09:35 Blood Pressure 128/84 05/24/23 09:35 Blood Pressure Mean 98 05/24/23 09:35 Blood Pressure Position Supine 05/24/23 09:35 Pulse Oximetry 99 05/24/23 09:35 Oxygen Delivery Method Room Air 05/24/23 09:35 Vital Signs Temperature 97.6 F 05/24/23 09:35 Pulse Rate 122 H 05/24/23 09:35 Respiratory Rate 26 H 05/24/23 09:35 Blood Pressure 128/84 05/24/23 09:35 Pulse Oximetry 99 05/24/23 09:35 Oxygen Delivery Method Room Air 05/24/23 09:35 Temperature 97.6 F 05/24/23 09:35 Pulse Rate 74 05/24/23 11:35 Respiratory Rate 26 H 05/24/23 09:35 Blood Pressure 80/54 L 05/24/23 11:35 Pulse Oximetry 98 05/24/23 11:35 Oxygen Delivery Method Room Air 05/24/23 09:35 Medications Administered Medications: Discontinued Medications Generic Name Dose Route Start Last Admin Trade Name Elmer PRN Reason Stop Dose Admin Diltiazem HCl 20 mg 05/24/23 10:45 05/24/23 11:36 Diltiazem 5 Mg/Ml Inj IVP 05/24/23 10:46 20 mg ONCE ONE Administration Sodium Chloride 500 mls @ 500 mls/hr 05/24/23 10:45 05/24/23 11:36 0.9 % Sodium Chloride 500 Ml IV 05/24/23 11:44 500 mls/hr .Q1H ONE Administration Medical Decision Making MDM Narrative Medical decision making narrative: This patient comes in with atrial fibrillation and rapid ventricular response. She does not have any chest pain or shortness of breath but does feel some generalized weakness. She is currently taking Eliquis and has done so for a couple months as she has had paroxysmal atrial fibrillation in the past. She also has been cardioverted successfully in the past. Additionally her family member state that she recently wore a heart monitor that showed that she continues in normal sinus rhythm except in the evenings and overnight she does have bradycardia and now is scheduled to have a pacemaker placed next month. This patient has heart rate around 120 beats per minute. An IV was established and she received 20 mg of diltiazem which brought sufficient control of her rate but she continues in atrial fibrillation. Lab results returned with reassuring findings. The patient did receive 500 mL of normal saline intravenously. This patient is a candidate for synchronized cardioversion as she has a recent return of atrial fibrillation and is been anticoagulated for a couple months. After acquiring informed consent the patient is agreeable to sedation with synchronized cardioversion. Anesthesia was contacted and was available to come in administer propofol which she received 70 mg for adequate sedation. A synchronized cardioversion with 100 joules of energy was delivered and brought her back to normal sinus rhythm. The patient did not need any other interventions and recovered normally. Lab Data Labs: Lab Results 05/24/23 Range/Units 11:20 WBC 2.91 L (4.50-11.00) K/uL RBC 4.50 (4.00-5.20) m/uL Hgb 13.5 (12.0-16.0) gm/dL Hct 41.3 (33.0-51.0) % MCV 92 (80-100) fL MCH 30 (26-34) pg MCHC 33 (32-36) gm/dL RDW Coeff of Reginaldo 13.3 (11.5-15.5) % Plt Count 119 L (140-440) K/uL Neut % (Auto) 68.4 (42.0-72.0) % Lymph % (Auto) 21.6 (20-44) % [place] % (Auto) 8.6 (0.0-11.0) % Eos % (Auto) 0.7 (0.0-7.0) % Baso % (Auto) 0.7 (0.0-3.0) % Neut # (Auto) 2.00 (1.7-7.0) K/uL Lymph # (Auto) 0.60 L (0.90-2.90) K/uL [place] # (Auto) 0.30 (0.00-0.90) K/UL Eos # (Auto) 0.00 (0.00-0.50) K/uL Baso # (Auto) 0.00 (0.00-0.30) K/uL Abs Immat Gran (auto) 0.00 (0.00-0.30) K/uL Imm/Tot Granulo (auto) 0.0 % Sodium 139 (135-149) mmol/L Potassium 3.7 (3.6-5.1) mmol/L Chloride 107 (96-114) mmol/L Carbon Dioxide 25 (20-32) mmol/L Anion Gap 7 (7-15) mEq/L BUN 29 (7-30) mg/dL Creatinine 0.7 (0.5-1.5) mg/dL Estimated Creat Clear 33.41 Estimated GFR 83 ml/min Glucose 124 H (60-115) mg/dL Calcium 9.0 (8.4-10.6) mg/dL ECG Data Attestation: I personally reviewed and interpreted this ECG as follows: Interpretation: Atrial fibrillation with rapid ventricular response. Rate is 118 beats per minute. Inferior leads have some ST depression. Repeat EKG after receiving diltiazem shows atrial fibrillation with rate controlled at 68 beats per minute. A 3rd EKG after synchronized cardioversion shows sinus bradycardia with a rate of 52 beats per minute. There are no specific ST or T-wave abnormalities. Discharge Plan Discharge Clinical Impression: Atrial fibrillation Patient Disposition: Home w/ Parent or Adult Condition: Improved Additional Instructions: Continue Eliquis as prescribed and resume flecainide also as prescribed. Follow-up with cardiology clinic for pacemaker installation as scheduled. Return if symptoms are recurrent or worsening. Prescriptions: No Action furosemide 20 mg tablet 20 mg PO QAM Eliquis 2.5 mg tablet 2.5 mg PO BID atorvastatin 10 mg tablet 10 mg PO DAILY cyanocobalamin (vitamin B-12) 500 mcg tablet 500 mcg PO DAILY flecainide 150 mg tablet See Rx Instructions PO BID Rx Instructions: 75 mg PO twice a day; fluticasone propionate [Flonase Allergy Relief] 50 mcg/actuation spray,suspension 2 spray intranasal DAILY PRN Rx Instructions: administer into each nostril multivitamin Tablet 1 tab PO DAILY omeprazole 20 mg capsule,delayed release(DR/EC) 20 mg PO BID oxybutynin chloride 5 mg tablet 5 mg PO BID potassium chloride 20 mEq tablet,ER particles/crystals 40 meq PO DAILY metoprolol tartrate 25 mg tablet 12.5 mg PO DAILY alendronate 70 mg tablet PO Patient Comments: [NO ORIGINAL SIG] gabapentin 100 mg capsule 100 mg PO HS Qty: 100 3RF Follow Up/Referrals: Alanna Arrieta MD [Primary Care Provider] - Stand Alone Forms: [employer] Info Instructions
[2023-05-24 11:27] LABS: Basophils Percent Auto 0.7 % (0.0-3.0); Eosinophils Percent Auto 0.7 % (0.0-7.0); Hematocrit 41.3 % (33.0-51.0); Hemoglobin* 13.5 gm/dL (12.0-16.0); Lymphocytes Percent Auto 21.6 % (20-44); Mean Corpuscular HGB Conc 33 gm/dL (32-36); Mean Corpuscular Hemoglobin 30 pg (26-34); Mean Corpuscular Volume 92 fL (80-100); Monocytes Percent Auto 8.6 % (0.0-11.0); Neutrophils Percent Auto 68.4 % (42.0-72.0); Platelet Count* 119 K/uL (140-440); RDW Coefficient of Variation % 13.3 % (11.5-15.5); White Blood Count* 2.91 K/uL (4.50-11.00)
[2023-05-24 11:29] LABS: Slide Review Reflex No
[2023-05-24] MEDS: dilTIAZem 5 MG/ML inj 20 MG IVP (11:36)
[2023-05-24] MEDS: 0.9 % SODIUM CHLORIDE 500 ML 500 ML IV (11:36)
[2023-05-24 11:38] LABS: Chloride* 107 mmol/L (96-114); Potassium* 3.7 mmol/L (3.6-5.1); Sodium* 139 mmol/L (135-149)
[2023-05-24 11:41] LABS: Anion Gap 7 mEq/L (7-15); Blood Urea Nitrogen* 29 mg/dL (7-30); Carbon Dioxide* 25 mmol/L (20-32); Creatinine* 0.7 mg/dL (0.5-1.5); Est. Creatinine Clearance* 33.41; Estimated Glomerular Filt Rate 83 ml/min; Glucose* 124 mg/dL (60-115)
[2023-05-24] MEDS: PROPOFOL 10 MG/ML INJ 100 MG IVP (13:26)
--- NOTE | 2023-05-24 13:50 | P.ANES_ITS ---
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
--- NOTE | 2023-05-24 13:50 | W.ANESCHARGE ---
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
[2023-05-24 14:12] LABS: Troponin, Point-of-Care* 0.03 ng/ml (0.01-0.04)
== END 2023-05-24 15:29 | disposition home or self-care (01) ==
PROVIDERS: Emergency Provider Emergency Medicine Emergency Medical Services; PCP Family Medicine
DX: I48.20 Chronic atrial fibrillation, unspecified (principal)
CPT/HCPCS: 00410; 36415; 80048; 84484; 85025; 92960; 93005; 95992; 99100; 99140; 99285; J2704; J7120

== ENCOUNTER 2023-05-28 15:53 | Emergency (ER) | payer MEDICARE, SELFPAY ==
[2023-05-28] VITALS (18 sets, daily range): BP systolic 151–166; BP diastolic 73–91; PULSE 56–70; RESP 16–18; TEMP 36.4; O2SAT 88–100
--- NOTE | 2023-05-28 16:16 | ED.GENADULT ---
HPI - General Adult General Time Seen by Provider: 16:17 Date Seen: 05/28/23 Chief complaint: Flank Pain Stated complaint: R side pain Time Seen by Provider: 05/28/23 16:16 Source: patient, RN notes reviewed and old records reviewed Mode of arrival: ambulatory Limitations: no limitations History of Present Illness HPI narrative: Mrs. Kennedy is a very pleasant 88-year-old female with history of endometrial cancer status post hysterectomy and chemotherapy with recent PET scan that was clear according to who comes to the emergency room for evaluation of right lower quadrant pain. Patient notes the onset of this intermittent pain earlier today. She describes it as a zapping sensation. She states it feels much like kidney stones that she has experienced in the past. She has not had any urinary symptoms nor any hematuria. She denies nausea vomiting fever or chills. She notes no change in her bowel movements. She denies flank pain. Note that this was in nursing notes but she has no flank pain at this time. Movement does not seem to change the discomfort. 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 She has been through both chemo and radiation. Recent PET scan negative according to . Sees [facility] here at the hospital. Recently underwent cardioversion. On anticoagulation. Related Data Home Medications Medication Instructions Recorded Confirmed apixaban 2.5 mg tablet (Eliquis) 2.5 mg PO BID 12/18/21 05/28/23 atorvastatin 10 mg tablet 10 mg PO DAILY 12/18/21 05/28/23 cyanocobalamin (vitamin B-12) 500 500 mcg PO DAILY 12/18/21 05/28/23 mcg tablet flecainide 150 mg tablet See Rx Instructions PO BID 12/18/21 05/28/23 fluticasone propionate 50 2 spray intranasal DAILY PRN 12/18/21 05/28/23 mcg/actuation nasal spray,suspension (Flonase Allergy Relief) multivitamin 1 tab PO DAILY 12/18/21 05/28/23 omeprazole 20 mg capsule,delayed 20 mg PO BID 12/18/21 05/28/23 release oxybutynin chloride 5 mg tablet 5 mg PO BID 12/18/21 05/28/23 potassium chloride 20 mEq 40 meq PO DAILY 12/18/21 05/28/23 tablet,extended release(part/cryst) metoprolol tartrate 25 mg tablet 12.5 mg PO DAILY 09/27/22 05/28/23 furosemide 20 mg tablet 20 mg PO QAM 01/16/23 05/28/23 alendronate 70 mg tablet mg PO 03/11/23 05/28/23 Previous Rx's Medication Instructions Recorded gabapentin 100 mg capsule 100 mg PO HS #100 caps 04/03/23 Allergies Allergy/AdvReac Type Severity Reaction Status Date / Time metformin Allergy Verified 05/28/23 15:22 Review of Systems Status of ROS: Reports: 10 or more systems reviewed and unremarkable except as noted in History and below Const: Denies: fever or chills ENMT: Denies: neck pain or difficulty swallowing Cardio: Denies: chest pain, swelling of feet/ankles, lightheadedness or shortness of breath with exertion Resp: Denies: shortness of breath or cough GI: Reports: abdominal pain; Denies: nausea, vomiting, diarrhea or difficulty swallowing : Denies: painful urination, urinary frequency, urinary urgency or blood in urine Musculo: Denies: back pain, neck pain or extremity pain PFSH PFS Medical History Upper gastrointestinal hemorrhage ?K92.2 - Gastrointestinal hemorrhage, unspecified (ICD-10) Malignant neoplasm of endometrium (2020) ?C54.1 - Malignant neoplasm of endometrium (ICD-10) Atrial fibrillation ?I48.91 - Unspecified atrial fibrillation (ICD-10) 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 - Drug-induced polyneuropathy (ICD-10) ?T45.1X5A - Adverse effect of antineoplastic and immunosuppressive drugs, initial encounter (ICD-10) Lung nodule ?R91.1 - Solitary pulmonary nodule (ICD-10) Surgical History H/O total hysterectomy with bilateral salpingo-oophorectomy (BSO) ?Z90.710 - Acquired absence of both cervix and uterus (ICD-10) ?Z90.722 - Acquired absence of ovaries, bilateral (ICD-10) ?Z90.79 - Acquired absence of other genital organ(s) (ICD-10) 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 Thin woman in no acute distress. External ears eyes nose clear. Heart with a regular rate and rhythm. Lungs are clear bilaterally. Abdomen is soft nontender. Straight leg raise and hip motion does not increase pain. No CVA tenderness with percussion. She is able to move all extremities. Const: Vital Signs, click to edit/add: Vital Signs - 24 hr 05/28/23 16:05 05/28/23 17:03 05/28/23 17:08 Temperature 97.5 F L Pulse Rate 60 Pulse Rate [Pulse Oximeter] 58 L 64 Respiratory Rate 18 16 Blood Pressure Blood Pressure [Ri ght Upper Arm] 166/79 H 163/77 H Pulse Oximetry 99 100 100 Oxygen Delivery Me thod Room Air Room Air 05/28/23 17:15 05/28/23 17:30 05/28/23 17:45 Temperature Pulse Rate 59 L 56 L 57 L Pulse Rate [Pulse Oximeter] Respiratory Rate Blood Pressure Blood Pressure [Ri ght Upper Arm] Pulse Oximetry 100 97 98 Oxygen Delivery Me thod 05/28/23 18:00 05/28/23 18:02 05/28/23 18:15 Temperature Pulse Rate 64 59 L 59 L Pulse Rate [Pulse Oximeter] Respiratory Rate Blood Pressure 157/91 H Blood Pressure [Ri ght Upper Arm] Pulse Oximetry 100 100 100 Oxygen Delivery Me thod 05/28/23 18:50 05/28/23 19:00 05/28/23 19:03 Temperature Pulse Rate 61 58 L Pulse Rate [Pulse Oximeter] Respiratory Rate Blood Pressure 151/73 H Blood Pressure [Ri ght Upper Arm] Pulse Oximetry 88 100 100 Oxygen Delivery Me thod 05/28/23 19:15 05/28/23 19:30 05/28/23 19:45 Temperature Pulse Rate 62 58 L 60 Pulse Rate [Pulse Oximeter] Respiratory Rate Blood Pressure Blood Pressure [Ri ght Upper Arm] Pulse Oximetry 98 98 97 Oxygen Delivery Me thod 05/28/23 20:00 05/28/23 20:02 05/28/23 20:15 Temperature Pulse Rate 62 62 70 Pulse Rate [Pulse Oximeter] Respiratory Rate Blood Pressure 152/81 H Blood Pressure [Ri ght Upper Arm] Pulse Oximetry 98 98 99 Oxygen Delivery Me thod Documenting provider has reviewed patient's vital signs: yes Course Course ED Course: Differential diagnosis includes but is not limited to ureteral colic, nephrolithiasis, UTI, pyelonephritis, colitis, bowel stricture, small-bowel obstruction, adhesions, metastatic disease. We will place IV and give 500 mL normal saline. Will also check CBC, comprehensive panel, CRP and urinalysis. Plan on CT. Reevaluation(s) Reevaluation #1: Patient continues to feel well. States she has only had just a few episodes of discomfort that was very brief. CT shows a pelvic fluid collection that is larger than previous. There is no evidence of a stone, appendicitis, metastatic disease at this time. Consultations Consultation #1: Consultation with surgery Dr. Mejia who suggests follow-up with oncology to determine if they want to follow this with CT verses IR directed aspiration and evaluation. A copy of the disc is provided to Mrs. Kennedy. Vital Signs Vital signs: Initial Vital Signs Temperature 97.5 F L 05/28/23 16:05 Temperature Source Temporal Artery Scan 05/28/23 16:05 Pulse Rate 58 L 05/28/23 16:05 Respiratory Rate 18 05/28/23 16:05 Blood Pressure 166/79 H 05/28/23 16:05 Blood Pressure Mean 108 H 05/28/23 16:05 Pulse Oximetry 99 05/28/23 16:05 Oxygen Delivery Method Room Air 05/28/23 16:05 Vital Signs Temperature 97.5 F L 05/28/23 16:05 Pulse Rate 58 L 05/28/23 16:05 Respiratory Rate 18 05/28/23 16:05 Blood Pressure 166/79 H 05/28/23 16:05 Pulse Oximetry 99 05/28/23 16:05 Oxygen Delivery Method Room Air 05/28/23 16:05 Temperature 97.5 F L 05/28/23 16:05 Pulse Rate 70 05/28/23 20:15 Respiratory Rate 16 05/28/23 17:03 Blood Pressure 152/81 H 05/28/23 20:02 Pulse Oximetry 99 05/28/23 20:15 Oxygen Delivery Method Room Air 05/28/23 17:03 Medications Administered Medications: Discontinued Medications Generic Name Dose Route Start Last Admin Trade Name Elmer PRN Reason Stop Dose Admin Heparin Sodium (Porcine) 500 unit 05/28/23 20:21 05/28/23 20:24 Heparin 500 Unit/5 Ml Syringe IVF 05/28/23 20:22 500 unit ONCE ONE Administration Sodium Chloride 500 mls @ 500 mls/hr 05/28/23 16:32 05/28/23 18:10 0.9 % Sodium Chloride 500 Ml IV 05/28/23 17:31 Infused .Q1H ONE Infusion Medical Decision Making MDM Narrative Medical decision making narrative: 1. Abdominal pain-almost entirely resolved. Patient states that she has had minimal episodes while she has been here. Labs are reassuring at this time as is patient exam. Abdominal CT does show fluid in the pelvis a collection that is larger than the the past but unsure of the significance and I am not entirely sure this is causing patient's discomfort. She is much better at this time and will be departed home. She is to follow-up with oncology for evaluation and decision to continue to monitor verses IR directed aspiration. CRP is normal. 2. Leukopenia-white count is depressed but seems to be comparable to previous values. 3. Disposition-at this time there is no evidence of UTI, hematuria. Certainly patient could have passed a very small stone while she was here as we did not strain her urine. We will allow her to go home as she is much improved. Return to the emergency room for fever, worsening symptoms and as needed. Medical Records Medical records reviewed: Yes I reviewed the patient's medical records Lab Data Lab results reviewed: Yes I reviewed the patient's lab results Labs: Lab Results 05/28/23 05/28/23 Range/Units 16:45 16:55 WBC 2.87 L (4.50-11.00) K/uL RBC 4.04 (4.00-5.20) m/uL Hgb 12.1 (12.0-16.0) gm/dL Hct 37.0 (33.0-51.0) % MCV 92 (80-100) fL MCH 30 (26-34) pg MCHC 33 (32-36) gm/dL RDW Coeff of Reginaldo 13.3 (11.5-15.5) % Plt Count 120 L (140-440) K/uL Neut % (Auto) 59.7 (42.0-72.0) % Lymph % (Auto) 25.4 (20-44) % Nobles % (Auto) 11.8 H (0.0-11.0) % Eos % (Auto) 2.1 (0.0-7.0) % Baso % (Auto) 0.7 (0.0-3.0) % Neut # (Auto) 1.70 (1.7-7.0) K/uL Lymph # (Auto) 0.70 L (0.90-2.90) K/uL Nobles # (Auto) 0.30 (0.00-0.90) K/UL Eos # (Auto) 0.10 (0.00-0.50) K/uL Baso # (Auto) 0.00 (0.00-0.30) K/uL Abs Immat Gran (auto) 0.00 (0.00-0.30) K/uL Imm/Tot Granulo (auto) 0.3 % Sodium 138 (135-149) mmol/L Potassium 4.0 (3.6-5.1) mmol/L Chloride 105 (96-114) mmol/L Carbon Dioxide 25 (20-32) mmol/L Anion Gap 8 (7-15) mEq/L BUN 25 (7-30) mg/dL Creatinine 0.6 (0.5-1.5) mg/dL Estimated Creat Clear 33.41 Estimated GFR 86 ml/min Glucose 96 (60-115) mg/dL Calcium 9.3 (8.4-10.6) mg/dL Total Bilirubin 0.4 (0.1-1.5) mg/dL AST 27 (12-35) U/L ALT 18 (4-35) U/L Alkaline Phosphatase 58 (40-150) U/L C-Reactive Protein < 0.5 L (0.5-1.0) mg/dL Total Protein 6.5 (6.0-8.3) g/dL Albumin 4.1 (3.3-5.0) g/dL Urine Color Yellow (Yellow) Urine Appearance Slightly Cloudy A (Clear) Urine pH 6.5 (5.0-8.5) Ur Specific [place] 1.015 (1.000-1.030) Urine Protein Negative (Negative) Urine Glucose (UA) Negative (Negative) Urine Ketones Negative (Negative) Urine Blood Negative (Negative) Urine Nitrite Negative (Negative) Urine Bilirubin Negative (Negative) Urine Urobilinogen 0.2 (0.2-1.0) Ur Leukocyte Esterase Negative (Negative) Urine RBC 0-2 (0-2) Urine WBC 0-2 (0-5) Ur Squamous Epith Cells None (None-Few) Urine Bacteria None (None) Imaging Data CT scan - abdomen: Attestation: I have reviewed the pertinent imaging results. Radiologist's impression: Lower chest: Unremarkable. Liver: Unremarkable. Normal in size and attenuation. No suspicious masses. Gallbladder and bile ducts: Unremarkable. No stones or inflammation. No biliary dilatation. Pancreas: Unremarkable. No mass or inflammation. Spleen: Unremarkable. Normal in size. No masses. Adrenal glands: Unremarkable. No nodules. Kidneys: Unremarkable. No suspicious masses, stones, or hydronephrosis. GI tract: Unremarkable. Normal in caliber. No sign of mass or inflammation. Normal appendix. Vasculature: Abdominal aorta is normal in caliber. Mesenteric arteries are patent. Lymph nodes: No lymphadenopathy. Peritoneum/Abdominal Wall: Unremarkable. No sign of mass or infiltration. No free air or significant free fluid. Pelvis: Small fluid collection in the cul-de-sac has slightly increased compared to the prior study. Uterus is absent. Pelvic structures otherwise unremarkable. Bones: Unremarkable for age. IMPRESSION: No acute or specific finding to explain right lower quadrant pain. No current renal stones and no hydronephrosis. Appendix is normal. Small pelvic fluid collection has slightly increased in size. Discharge Plan Discharge Clinical Impression: Pelvic fluid collection Abdominal pain Qualifiers: Abdominal location: right lower quadrant Qualified Code(s): R10.31 - Right lower quadrant pain Patient Disposition: Home, Self-Care Condition: Improved Additional Instructions: Please take the disc with your CT images 2 your oncologist. They may wish to do an ultrasound or sample some of the fluid in the pelvis. Ibuprofen or Tylenol may be used for discomfort. Return to the emergency room for increasing fever, pain and as needed. At this time, there is no evidence of urinary tract infection but we will be sending the urine for a culture. Your electrolytes are normal. Prescriptions: No Action furosemide 20 mg tablet 20 mg PO QAM Eliquis 2.5 mg tablet 2.5 mg PO BID atorvastatin 10 mg tablet 10 mg PO DAILY cyanocobalamin (vitamin B-12) 500 mcg tablet 500 mcg PO DAILY flecainide 150 mg tablet See Rx Instructions PO BID Rx Instructions: 75 mg PO twice a day; fluticasone propionate [Flonase Allergy Relief] 50 mcg/actuation spray,suspension 2 spray intranasal DAILY PRN Rx Instructions: administer into each nostril multivitamin Tablet 1 tab PO DAILY omeprazole 20 mg capsule,delayed release(DR/EC) 20 mg PO BID oxybutynin chloride 5 mg tablet 5 mg PO BID potassium chloride 20 mEq tablet,ER particles/crystals 40 meq PO DAILY metoprolol tartrate 25 mg tablet 12.5 mg PO DAILY alendronate 70 mg tablet PO Patient Comments: [NO ORIGINAL SIG] gabapentin 100 mg capsule 100 mg PO HS Qty: 100 3RF Follow Up/Referrals: Alanna Arrieta MD [Primary Care Provider] - Stand Alone Forms: [facility] Info Instructions
--- NOTE | 2023-05-28 17:04 | CRLHL7_ITS ---
For Patients: As a result of the Century Cures Act, medical imaging exams and procedure reports are released immediately into your electronic medical record. You may view this report before your referring provider. If you have questions, please contact your health care provider. INDICATION: Right lower quadrant abdominal pain. History of renal stones. TECHNIQUE: CT abdomen and pelvis without and with 73 cc Isovue 370 IV contrast. COMPARISON: January 10, 2023. FINDINGS: Lower chest: Unremarkable. Liver: Unremarkable. Normal in size and attenuation. No suspicious masses. Gallbladder and bile ducts: Unremarkable. No stones or inflammation. No biliary dilatation. Pancreas: Unremarkable. No mass or inflammation. Spleen: Unremarkable. Normal in size. No masses. Adrenal glands: Unremarkable. No nodules. Kidneys: Unremarkable. No suspicious masses, stones, or hydronephrosis. GI tract: Unremarkable. Normal in caliber. No sign of mass or inflammation. Normal appendix. Vasculature: Abdominal aorta is normal in caliber. Mesenteric arteries are patent. Lymph nodes: No lymphadenopathy. Peritoneum/Abdominal Wall: Unremarkable. No sign of mass or infiltration. No free air or significant free fluid. Pelvis: Small fluid collection in the cul-de-sac has slightly increased compared to the prior study. Uterus is absent. Pelvic structures otherwise unremarkable. Bones: Unremarkable for age. IMPRESSION: No acute or specific finding to explain right lower quadrant pain. No current renal stones and no hydronephrosis. Appendix is normal. Small pelvic fluid collection has slightly increased in size. Please note that all CT scans at this facility use dose modulation, iterative reconstruction, and/or weight-based dosing when appropriate to reduce radiation dose to as low as reasonably achievable. Dictated by Prabhu Mcmanus MD @ 05/28/2023 7:49:51 PM (Electronically Signed)
[2023-05-28] MEDS: 0.9 % SODIUM CHLORIDE 500 ML 500 ML IV (17:08)
[2023-05-28 17:12] LABS: Basophils Percent Auto 0.7 % (0.0-3.0); Eosinophils Percent Auto 2.1 % (0.0-7.0); Hemoglobin* 12.1 gm/dL (12.0-16.0); Immature Granulocytes Pct Auto 0.3 %; Lymphocytes Percent Auto 25.4 % (20-44); Mean Corpuscular HGB Conc 33 gm/dL (32-36); Mean Corpuscular Hemoglobin 30 pg (26-34); Mean Corpuscular Volume 92 fL (80-100); Monocytes Percent Auto 11.8 % (0.0-11.0); Neutrophils Percent Auto 59.7 % (42.0-72.0); Platelet Count* 120 K/uL (140-440); RDW Coefficient of Variation % 13.3 % (11.5-15.5); Red Blood Count 4.04 m/uL (4.00-5.20); White Blood Count* 2.87 K/uL (4.50-11.00)
[2023-05-28 17:13] LABS: Appearance Urine Slightly Cloudy (Clear); Bilirubin Urine Negative (Negative); Blood Urine Negative (Negative); Color Urine Yellow (Yellow); Glucose Urine Negative (Negative); Ketones Urine Negative (Negative); Leukocyte Esterase Urine Negative (Negative); Nitrite Urine Negative (Negative); Protein Urine Negative (Negative); Specific Gravity Urine 1.015 (1.000-1.030); Urobilinogen Urine 0.2 (0.2-1.0); pH Urine 6.5 (5.0-8.5)
[2023-05-28 17:20] LABS: Slide Review Reflex No
[2023-05-28 17:26] LABS: RBC Urine 0-2 (0-2); WBC Urine 0-2 (0-5)
[2023-05-28 17:36] LABS: Albumin* 4.1 g/dL (3.3-5.0); Chloride* 105 mmol/L (96-114); Sodium* 138 mmol/L (135-149)
[2023-05-28 17:39] LABS: Anion Gap 8 mEq/L (7-15); Carbon Dioxide* 25 mmol/L (20-32); Creatinine* 0.6 mg/dL (0.5-1.5); Est. Creatinine Clearance* 33.41; Estimated Glomerular Filt Rate 86 ml/min
[2023-05-28 17:40] LABS: Alanine Aminotransferase* 18 U/L (4-35); Alkaline Phosphatase* 58 U/L (40-150); Aspartate Amino Transferase* 27 U/L (12-35); Bilirubin Total* 0.4 mg/dL (0.1-1.5); Blood Urea Nitrogen* 25 mg/dL (7-30); Calcium* 9.3 mg/dL (8.4-10.6); Glucose* 96 mg/dL (60-115); Total Protein* 6.5 g/dL (6.0-8.3)
[2023-05-28 17:45] LABS: C Reactive Protein* < 0.5 mg/dL (0.5-1.0)
[2023-05-28] MEDS: HEPARIN 500 UNIT/5 ML SYRINGE IVF (20:24)
== END 2023-05-28 20:46 | disposition home or self-care (01) ==
PROVIDERS: Emergency Provider Family Medicine; PCP Family Medicine
DX: R10.31 Right lower quadrant pain (principal); R19.09 Other intra-abdominal and pelvic swelling, mass and lump
CPT/HCPCS: 36415; 74170; 80053; 81001; 85025; 86140; 95992; 99283; 99284; J1642; J7120; Q9967

== ENCOUNTER 2023-08-13 13:30 | Outpatient (RCR) | payer MEDICARE, SELFPAY ==
[2023-04-10] MEDS: HEPARIN 500 UNIT/5 ML SYRINGE IVF (12:39)
[2023-04-10] MEDS: SODIUM CHLORIDE 0.9 % (FLUSH) 10 ML SYRINGE IVF (12:40)
[2023-05-20] MEDS: SODIUM CHLORIDE 0.9 % (FLUSH) 10 ML SYRINGE IVF (12:23)
[2023-05-20] MEDS: HEPARIN 500 UNIT/5 ML SYRINGE IVF (12:23)
--- NOTE | 2023-05-29 16:44 | ONC.NURNOTE ---
Patient and came in to discuss a CT scan done in the Emergency department that showed an increase in the mass of fluid in the abdomen per . Patient came in to ED due to pain in abdomen thinking she may have had a kidney stone and that ruled out negative and patient with no further pain but they are concerned about fluid. Dr. Valdez reviewed scan and notes patient just had PET scan beginning of May and will have that repeated in September. and given information and instructed to talk with primary MD if any more concerns or call back to discuss with MD.
[2023-07-02] MEDS: HEPARIN 500 UNIT/5 ML SYRINGE IVF (13:00)
[2023-07-02] MEDS: SODIUM CHLORIDE 0.9 % (FLUSH) 10 ML SYRINGE IVF (13:00)
== END 2023-08-26 23:59 | disposition home or self-care (01) ==
LOC: CCIC 13:30
PROVIDERS: PCP Family Medicine; Referring Provider Family Medicine; Visit Provider Internal Medicine Hematology & Oncology
DX: C54.1 Malignant neoplasm of endometrium (principal); R91.1 Solitary pulmonary nodule
CPT/HCPCS: 80053; 85025; 99211; 99213; 99214; J1642

== ENCOUNTER 2023-09-05 13:35 | Outpatient (CLI) | payer MEDICARE, SELFPAY ==
--- NOTE | 2023-09-05 14:00 | PE_ITS ---
[facility] [address] [facility] [address] Phone:?[phone] Fax:?[phone] Referring Physician Information: Sandy Valdez M.D. [address] [facility] [address] Phone:?[phone] Fax:?[phone] Patient:Dave Kennedy D.O.B:?1935 Sex:?Female Phone:?[phone] [facility] MRN:?[id number] Exam Date:?09/05/2023 EXAM: PET/CT EYES TO THIGHS, CANCER RESTAGING CLINICAL INFORMATION: Endometrial cancer. TECHNICAL INFORMATION: Helical acquisition of data was obtained from the orbits to the upper thighs with reconstruction of 3.75 mm thick images at 3.[address] data was used for attenuation correction. PET scanning was performed through the same anatomic range 68 minutes following administration of 12.02 mCi of 18-FDG delivered intravenously. The patient's glucose at the time of the injection was 90 mg/dL. PET, CT and PET/CT fusion images are interpreted using a computer viewing workstation. PET, CT and PET/CT fusion images were archived and saved in the patient's permanent medical record. COMPARISON: PET-CTs from 05/16/2023 and 09/06/2022. INTERPRETATION: Head and Neck: There are no abnormal hypermetabolic foci within the head or neck. There is physiologic uptake in the intracranial soft tissues. Chest: Stable opacity in the right lower lobe treatment zone shows central clearing and low level FDG uptake (SUVmax = 1.4), suggesting a benign etiology (e.g., radiation fibrosis). No distinct viable residua. No new, enlarging, markedly hypermetabolic, or otherwise worrisome pulmonary nodules or masses. No intrathoracic lymphadenopathy size, morphology, or metabolic rate. Background mediastinal blood pool uptake has a maximum SUV of 2.51. Left chest port catheter terminates at the cavoatrial junction. Abdomen and Pelvis: There are no abnormal hypermetabolic foci within the abdomen or pelvis. Background hepatic parenchymal uptake has a maximum SUV of 3.08. There is physiologic excretion of radiotracer in the urine and bowel. Skeleton, Musculature, and Integument: No abnormal hypermetabolic foci within the skeleton. No paz osteoblastic or osteolytic disease. CONCLUSION: 1. No abnormal FDG uptake to indicate active malignancy. 2. 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 Electronically signed on 09/09/2023 9:33:00 AM by Jarrett Rich M.D.
== END 2023-09-05 13:36 | disposition home or self-care (01) ==
LOC: RAD 13:37
PROVIDERS: PCP Family Medicine; Visit Provider Internal Medicine Hematology & Oncology
DX: C54.1 Malignant neoplasm of endometrium (principal); J84.10 Pulmonary fibrosis, unspecified
CPT/HCPCS: 78815; A9552

== ENCOUNTER 2023-09-23 08:12 | Outpatient (CLI) | payer MEDICARE, SELFPAY | END 2023-09-23 08:13 | disposition home or self-care (01) | LOC: AMB 09-26 11:03 | PROVIDERS: PCP Family Medicine; Visit Provider Emergency Medicine | DX: R53.1 Weakness (principal); R05.9 Cough, unspecified; R41.89 Other symptoms and signs involving cognitive functions and awareness | CPT/HCPCS: A0425; A0429 ==

== ENCOUNTER 2023-09-23 08:48 | Observation (INO) | payer MEDICARE, SELFPAY ==
[2023-09-23] VITALS (18 sets, daily range): BP systolic 113–132; BP diastolic 56–86; PULSE 71–91; RESP 16–22; TEMP 36.8–37.2; O2SAT 93–97; BMI 19.7; BMI 22.0
--- NOTE | 2023-09-23 09:05 | ED.GENADULT ---
HPI - General Adult General Date Seen: 09/23/23 Chief complaint: Weakness Stated complaint: weakness Time Seen by Provider: 09/23/23 09:02 History of Present Illness HPI narrative: 88-year-old female returns to the ER today for generalized weakness. She normally lives at home, with her . She was seen 2 days ago, on Saturday for cough. This morning her cough was productive of some sputum with blood tinged. She is also weaker than normal. The the patient's son reported that she seemed to be moving and thinking slower than normal. She was brought in by EMS this morning. Blood sugar was 235 In review of her medical records she was seen by Dr. Chung, oncology, on 09/16/2023. She was seen for follow-up of recurrent endometrial serous carcinoma. per records Oncology Hx: #0 Presentation 07/02/2019 84 yo woman evaluated for vaginal spotting 07/02/2019 pelvic ultrasound - solid heterogeneously hypoechoic solid mass arising from the anterior uterine mid fundal myometrium measuring 3.5*2.7*2.6 cm #1 Diagnosis 07/06/2019 endometrial biopsy performed by Dr. Sade Arrieta, - fragments of serous carcinoma of endometrium #2 Critical Imaging and Workup 07/14/2019 CT chest abdomen pelvis - indeterminate 5 mm lung nodule superior segment right lower lobe. Follow-up 6 months should be considered. - Indeterminate enhancing lobulated mass arising from the left hepatic lobe measuring 13 mm. Dynamic MRI recommended for further evaluation. - Subcentimeter retroperitoneal lymph nodes likely normal. - 3.7 cm uterine leiomyoma. 07/14/2019 CA 125: 14.5 #3 Surgery 08/06/2019 robotic assisted total laparoscopic hysterectomy, bilateral salpingo-oophorectomy, washings, infracolic omentectomy, bilateral pelvic sentinel lymph node, left sentinel lymph node biopsy and right pelvic and para-aortic lymphadenectomy. - 3.4 cm endometrial serous carcinoma involving 2 polyp. - No myometrial invasion, negative LVSI, benign bilateral fallopian tubes and ovaries. 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 - Benign omentum - STAGING: IIIC1. pT1a pN1mi #4 Critical Imaging 08/14/2019 PET-CT and EGD - moderate subcutaneous emphysema on the left and mild pneumomediastinum noted. - Mild ascites. #5 Additional Testing 08/19/2019: HER2 negative #6 Chemotherapy 09/09/2019 - 12/29/2019. 6 cycles adjuvant carboplatin AUC4 and Paclitaxel 150mg/m^2 with neulasta support - Treatment Dates: 09/09/2019, 09/30/2019, 10/21/2019, 11/18/2019, 12/09/2019, 12/29/2019 #7 Critical Imaging 11/09/2019 CT CHEST ABDOMEN PELVIS - ill-defined heterogeneous mass 2.1 into 1.2 cm anterior to the right iliac vein and adjacent right common iliac artery with central lucency suggesting necrotic metastatic lymph node or abscess. Curvilinear stranding surrounding this mass. Associated pelvic free fluid. 01/22/2020 CT CHEST ABDOMEN PELVIS - 9 mm spot next to the right iliac artery; stable subcentimeter lesions in left and right lung/subcentimeter hepatic cyst #8 Radiation 02/10/2020-03/16/2020 : EBRT to pelvis, right common iliac, low para-aortic lymph nodes. 5250cGy in 25 fractions #9 Surveillance 05/2020, 08/2020, 11/2020, 03/2021, 08/2021, 02/2022: JUNAID on surveillance CT c/a/p #10 Recurrence 08/22/2022: CT CHEST ABDOMEN PELVIS - new 2.0x1.7x1.1cm irregular shaped nodular opacity in subpleural RLL lung - multiple additional bilateral pulmonary nodules are present, measuring up to 6mm and previously stable 09/06/2022: PET - metabolically active nearly 2 cm irregular pulmonary nodule subpleural RLL lung suspicious for metastasis. SUV max 5.4 - few additional tiny subcentimeter pulmonary nodules below threshold for PET imaging and without metabolic activity - exam is otherwise negative #11 Radiation Patient will be evaluated by Dr. Perez in radiation oncology to discuss SBRT planning for management of solitary new lung metastasis 2 cm nodule in the right lower lobe of the lung on imaging in August 2022, suspicious for metastasis #6 Stereotactic radiotherapy to the tumor in the right lower lobe initiated on October 10, 2022; anticipated date of completion is on October 19, 2022 She also has a history of atrial fibrillation and had a pacemaker implanted in June 2023. On Eliquis She has chemotherapy-induced neuropathy, on gabapentin. Per the patient and family she has been doing well from a cancer standpoint since last year. As far as we know she is not having any active recurrence. She is not currently on chemo or radiation. She does usually gets sicker have colds. Her was sick last week with what he thought was a cold. He was worn out and had a stuffy nose and a cough but did not need to go to the doctor. She developed symptoms 2 days ago on Saturday with a cough, nasal congestion. She was started on Sudafed after a phone conversation with her pharmacist. She was feeling a bit run down yesterday but her felt like she was drinking her normal amount of water. Urination was normal yesterday. Overnight she seemed to be hot to the touch probably running a fever. She does normally talk in her sleep but she was mumbling, noted by her . At about 4:00 a.m. this morning she was awake and need to go to the bathroom but was too weak to get out of bed, even with her 's assistance. Later on this morning she had to go to the bathroom again so her called her son and they helped her get to the bathroom. It took a lot of effort to get to the bathroom because she was very weak. She also has seemed to struggle with some of her other normal activities of daily living, such as opening closing her water cup. She does have a mild cough. Her main problem is that she is very weak and run down. Her son is worried that she is probably dehydrated because she ?never drinks enough water?. She also had pain affecting both of her ears. No sore throat. No diarrhea no swelling in her No other symptoms. No chest pain. No palpitations or AFib. Related Data Home Medications Medication Instructions Recorded Confirmed apixaban 2.5 mg tablet (Eliquis) 2.5 mg PO BID 12/18/21 09/23/23 atorvastatin 10 mg tablet 10 mg PO HS 12/18/21 09/23/23 flecainide 150 mg tablet 75 mg PO BID 12/18/21 09/23/23 multivitamin 1 tab PO DAILY 12/18/21 09/23/23 omeprazole 20 mg capsule,delayed 20 mg PO BID 12/18/21 09/23/23 release oxybutynin chloride 5 mg tablet 5 mg PO BID 12/18/21 09/23/23 potassium chloride 20 mEq 40 meq PO DAILY 12/18/21 09/23/23 tablet,extended release(part/cryst) furosemide 20 mg tablet 20 mg PO QAM 01/16/23 09/23/23 alendronate 70 mg tablet 70 mg PO Q7D 03/11/23 09/23/23 gabapentin 300 mg capsule 300 mg PO HS 09/23/23 09/23/23 metoprolol succinate 25 mg 25 mg PO DAILY 09/23/23 09/23/23 tablet,extended release 24 hr olopatadine 0.1 % eye drops 1 drp ophthalmic (eye) BID 09/23/23 09/23/23 Previous Rx's Medication Instructions Recorded Lactobacillus acidophilus 0.5 mg 100 mmu cells PO TIDWM #60 tabs 09/24/23 (100 million cell) tablet amoxicillin 500 mg-potassium 1 tab PO TID 7 days #21 tabs 09/24/23 clavulanate 125 mg tablet (Augmentin) Allergies Allergy/AdvReac Type Severity Reaction Status Date / Time metformin Allergy Verified 09/16/23 10:33 [facility] Medical History (Updated 09/24/23 @ 11:58 by Hannah Gómez MD) Diabetes type 2, controlled ?E11.9 - Type 2 diabetes mellitus without complications (ICD-10) Anemia due to acute blood loss ?D62 - Acute posthemorrhagic anemia (ICD-10) Upper gastrointestinal hemorrhage ?K92.2 - Gastrointestinal hemorrhage, unspecified (ICD-10) Malignant neoplasm of endometrium (2020) ?C54.1 - Malignant neoplasm of endometrium (ICD-10) Atrial fibrillation ?I48.91 - Unspecified atrial fibrillation (ICD-10) 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 - Drug-induced polyneuropathy (ICD-10) ?T45.1X5A - Adverse effect of antineoplastic and immunosuppressive drugs, initial encounter (ICD-10) Lung nodule ?R91.1 - Solitary pulmonary nodule (ICD-10) Surgical History (Updated 09/23/23 @ 16:40 by Cris Pat MD) S/P placement of cardiac pacemaker ?Z95.0 - Presence of cardiac pacemaker (ICD-10) H/O total hysterectomy with bilateral salpingo-oophorectomy (BSO) ?Z90.710 - Acquired absence of both cervix and uterus (ICD-10) ?Z90.722 - Acquired absence of ovaries, bilateral (ICD-10) ?Z90.79 - Acquired absence of other genital organ(s) (ICD-10) Social History (Updated 09/23/23 @ 16:42 by Cris Pat MD) Narrative: Lives with Joselyn (would share MDM duties with son Jagdeep if needed) in [place] independently. 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 DNR/DNI status. What is your current living situation?: I presently have a place to live Problems where you live: no known problems Problems where you live details: None In the past 12 months, utilities in danger of being shut off: no In past 12 months, lack of transportation kept you from medical appts, meetings, work, or getting things needed for daily living: no In the past 12 mos, have been you worried that your food would run out before you had money to buy more?: never true In the past 12 mos, the food you bought just didn't last and you didn't have money to buy more?: never true Smoking Status: Never smoker Do you use any of these nicotine containing products: None Second hand tobacco smoke exposure: No How often do you have a drink containing alcohol: never How often do you have six or more drinks on one occasion: Never AUDIT-C Alcohol total score: 0 Non-prescribed substance use: denies use How often does anyone, including family, friends and others, physically hurt you: never How often does anyone, including family, friends and others, insult or talk down to you: never How often does anyone, including family, friends and others, threaten you with harm: never How often does anyone, including family, friends and others, scream or curse at you: never service: No Exam Narrative: Exam Narrative: Constitutional: Appears well-developed and well-nourished. Alert but relies on her family to provide a lot of her history.. When asked questions directly she answers. She follows commands to the best of her ability. She requires assistance to sit up for posterior lung exam because she has generalized weakness per. Non toxic. HENT: Head: Atraumatic. Nose: Nose normal. Mouth/Throat: Oral mucosa is clear but quite dry. no trismus. Pharynx normal. Tonsils symmetric. No tonsillar enlargement, erythema, or exudate. No sign of pharyngitis. Eyes: Conjunctivae normal. EOM normal. Pupils equal, round, and reactive to light. No scleral icterus. Neck: Normal range of motion. Neck supple. No tracheal deviation present. Cardiovascular: Normal rate, regular rhythm. No gallop. No friction rub. No murmur heard. Symmetric radial artery pulses Pulmonary/Chest: Effort normal. No stridor. No respiratory distress. No wheezes. No rales. No rhonchi . No tenderness. Abdominal: Soft. Bowel sounds normal. No distension. No mass. No tenderness. No rebound. No guarding. Musculoskeletal: RUE: Normal range of motion. No tenderness. No deformity LUE: Normal range of motion. No tenderness. No deformity RLE: Normal range of motion. No edema. No tenderness. No deformity LLE: Normal range of motion. No edema. No tenderness. No deformity Neurological: Alert and oriented to person, place, and time. Normal strength. CN II-VII intact. No sensory deficit. GCS eye subscore is 4. GCS verbal subscore is 5. GCS motor subscore is 6. Normal coordination Skin: Skin is warm and dry. No rash noted. No pallor. Normal capillary refill. Psychiatric: Normal mood. Normal affect. Const: Vital Signs, click to edit/add: Vital Signs - 24 hr 09/23/23 08:54 09/23/23 09:05 09/23/23 09:06 Temperature 98.9 F Pulse Rate 90 90 Pulse Rate [Pulse Oximeter] 90 Respiratory Rate 22 Blood Pressure 113/60 Blood Pressure [Ri ght Upper Arm] 119/56 L Pulse Oximetry 94 95 95 [facility] 09/23/23 09:15 09/23/23 09:31 09/23/23 09:37 Temperature Pulse Rate 91 91 Pulse Rate [Pulse Oximeter] Respiratory Rate Blood Pressure 117/58 L Blood Pressure [Ri ght Upper Arm] Pulse Oximetry 95 95 [facility] 09/23/23 09:45 09/23/23 10:00 09/23/23 10:01 Temperature Pulse Rate 90 89 85 Pulse Rate [Pulse Oximeter] Respiratory Rate Blood Pressure 123/60 Blood Pressure [Ri ght Upper Arm] Pulse Oximetry 95 96 96 [facility] 09/23/23 10:15 09/23/23 10:39 09/23/23 10:45 Temperature Pulse Rate 82 82 85 Pulse Rate [Pulse Oximeter] Respiratory Rate Blood Pressure Blood Pressure [Ri ght Upper Arm] Pulse Oximetry 96 97 97 Oxygen Delivery Me thod 09/23/23 11:00 09/23/23 11:01 Temperature Pulse Rate 74 71 Pulse Rate [Pulse Oximeter] Respiratory Rate Blood Pressure 131/66 Blood Pressure [Ri ght Upper Arm] Pulse Oximetry 95 96 [facility] Vital Signs Vital signs: Initial Vital Signs Temperature 98.9 F 09/23/23 08:54 Temperature Source Temporal Artery Scan 09/23/23 08:54 Pulse Rate 90 09/23/23 08:54 Respiratory Rate 22 09/23/23 08:54 Blood Pressure 119/56 L 09/23/23 08:54 Blood Pressure Mean 77 09/23/23 08:54 Blood Pressure Position Sitting 09/23/23 08:54 Pulse Oximetry 94 09/23/23 08:54 Oxygen Delivery Method Room Air 09/23/23 08:54 Vital Signs Temperature 98.9 F 09/23/23 08:54 Pulse Rate 90 09/23/23 08:54 Respiratory Rate 22 09/23/23 08:54 Blood Pressure 119/56 L 09/23/23 08:54 Pulse Oximetry 94 09/23/23 08:54 Oxygen Delivery Method Room Air 09/23/23 08:54 Temperature 97.6 F 09/24/23 11:12 Pulse Rate 75 09/24/23 11:12 Respiratory Rate 22 09/24/23 11:12 Blood Pressure 102/53 L 09/24/23 11:12 Pulse Oximetry 100 09/24/23 11:12 Oxygen Delivery Method Room Air 09/24/23 08:09 Medications Administered Medications: Discontinued Medications Generic Name Dose Route Start Last Admin Trade Name Freq PRN Reason Stop Dose Admin Acetaminophen 650 - 975 mg 09/23/23 13:42 09/24/23 03:24 Acetaminophen 325 Mg Tablet PO 975 mg Q6H PRN Administration Amoxicillin 500 mg 09/23/23 21:00 09/24/23 08:58 Amoxicillin 250 Mg Capsule PO 500 mg TID SKYLER Administration Apixaban 2.5 mg 09/23/23 10:09 09/23/23 10:18 Apixaban 5 Mg Tablet PO 09/23/23 10:10 2.5 mg ONCE ONE Administration Apixaban 2.5 mg 09/23/23 21:00 09/24/23 08:58 Apixaban 5 Mg Tablet PO 2.5 mg BID SKYLER Administration Atorvastatin Calcium 10 mg 09/23/23 21:00 09/23/23 20:35 Atorvastatin 10 Mg Tablet PO 10 mg HS SKYLER Administration Flecainide Acetate 75 mg 09/23/23 10:10 09/23/23 10:43 Flecainide Acetate 50 Mg Tablet PO 09/23/23 10:11 75 mg ONCE ONE Administration Flecainide Acetate 75 mg 09/23/23 21:00 09/24/23 08:58 Flecainide Acetate 50 Mg Tablet PO 75 mg BID SKYLER Administration Gabapentin 300 mg 09/23/23 21:00 09/23/23 20:33 Gabapentin 300 Mg Capsule PO 300 mg HS SKYLER Administration Sodium Chloride 1,000 mls @ 1,000 mls/hr 09/23/23 09:30 09/23/23 11:31 0.9 % Sodium Chloride 1000 Ml IV 09/23/23 10:29 Infused .Q1H SKYLER Infusion Azithromycin 500 mg/ Sodium 255 mls @ 255 mls/hr 09/23/23 10:46 09/23/23 11:03 Chloride IVPB 09/23/23 10:47 Not Given ONCE ONE Ceftriaxone Sodium 1 gm/ 100 mls @ 200 mls/hr 09/23/23 10:46 09/23/23 11:04 Sodium Chloride IVPB 09/23/23 10:47 Not Given ONCE ONE Ketorolac Tromethamine 15 mg 09/23/23 11:44 09/23/23 13:38 Ketorolac 15 Mg/Ml Inj IVP 09/23/23 11:45 Not Given ONCE ONE Lactobacillus Acidophilus 1 tab 09/23/23 18:00 09/24/23 11:55 Lactobacillus Acidophilus 1 Tablet PO 1 tab TIDWM SKYLER Administration Metoprolol Succinate 25 mg 09/24/23 09:00 09/24/23 08:58 Metoprolol Succinate (Xl) 25 Mg Tab PO 25 mg DAILY SKYLER Administration Omeprazole 20 mg 09/23/23 21:00 09/24/23 08:58 Omeprazole [address] PO 20 mg BID SKYLER Administration Potassium Bicarbonate 25 meq 09/24/23 07:45 09/24/23 10:34 Potassium Bicarb 25 Meq Effervescent Tab PO 09/24/23 09:46 25 meq Q2H SKYLER Administration Sodium Chloride 5 ml 09/23/23 21:00 09/24/23 08:59 Sodium Chloride 0.9 % (Flush) 10 Ml Syringe IVF 5 ml BID SKYLER Administration Medical Decision Making MDM Narrative Medical decision making narrative: 88-year-old female presenting to the ER today with her family from home for generalized weakness and inability to get herself out of bed into the bathroom this morning and inability to eat and drink at home. She has been sick for couple of days with what her thinks is probably a cold. Some nasal congestion, some mild cough. He is just getting over what he thinks is a cold as well. He did not go to doctor to check. With her URI symptoms we did do COVID/influenza/RSV PCR which is negative. Chest x-ray is obtained and is negative for pneumonia. Of note, when I read the chest x-ray I thought there might be a right lower lobe infiltrate but discussed with Radiology by phone. They have access to previous imaging and they feel that the abnormality seen on the chest x-ray is likely from her previous lung tumor and radiation and not indicative of an acute infiltrate. She also complained of bilateral ear pain and headache. Head CT scan is negative for any acute intracranial abnormality. There is sign of possible sinusitis. Unclear if sinusitis would cause her generalized weakness. No signs of any bony erosion. She does have a frontal headache which could be related to sinusitis. This point with no neck stiffness, fever, would doubt meningitis. Hold off on lumbar puncture. Will defer antibiotics to the admitting hospitalist. Laboratory workup shows normal white count, normal hemoglobin. No signs of active bleeding. She does have mild thrombocytopenia, only slightly down from baseline. Sodium and electrolytes normal. Kidney function normal. EKG nonspecific but nonischemic. Troponin normal. She is not having any chest pain. Suspicion was for probable dehydration as she did have dry oral mucous membranes. She did tolerate limited oral fluid and received a L of saline. With this her strength is really not improved. She will require hospitalization for supportive care in the setting of weakness and dehydration. Discussed with hospitalist, Dr. Mccabe who agrees to accept. Urinalysis pending at the time of admission, but should be obtained to screen is UTIs for causing weakness Lab Data Labs: Lab Results 09/23/23 09/23/23 Range/Units 09:45 09:58 WBC 4.55 (4.50-11.00) K/uL RBC 3.82 L (4.00-5.20) m/uL Hgb 11.5 L (12.0-16.0) gm/dL Hct 36.0 (33.0-51.0) % MCV 94 (80-100) fL MCH 30 (26-34) pg MCHC 32 (32-36) gm/dL RDW Coeff of Reginaldo 12.9 (11.5-15.5) % Plt Count 102 L (140-440) K/uL Neut % (Auto) 70.6 (42.0-72.0) % Lymph % (Auto) 11.6 L (20-44) % [place] % (Auto) 17.4 H (0.0-11.0) % Eos % (Auto) 0.0 (0.0-7.0) % Baso % (Auto) 0.2 (0.0-3.0) % Neut # (Auto) 3.21 (1.7-7.0) K/uL Lymph # (Auto) 0.50 L (0.90-2.90) K/uL [place] # (Auto) 0.80 (0.00-0.90) K/UL Eos # (Auto) 0.00 (0.00-0.50) K/uL Baso # (Auto) 0.01 (0.00-0.30) K/uL Abs Immat Gran (auto) 0.01 (0.00-0.30) K/uL Imm/Tot Granulo (auto) 0.2 % Sodium 135 (135-149) mmol/L Potassium 4.0 (3.6-5.1) mmol/L Chloride 106 (96-114) mmol/L Carbon Dioxide 25 (20-32) mmol/L Anion Gap 4 L (7-15) mEq/L BUN 18 (7-30) mg/dL Creatinine 0.6 (0.5-1.5) mg/dL Estimated Creat Clear 33.41 Estimated GFR 86 ml/min Glucose 176 H (60-115) mg/dL Lactate 1.2 (0.5-1.9) mmol/L Calcium 8.9 (8.4-10.6) mg/dL Troponin I 0.03 (0.01-0.04) ng/mL SARS-CoV-2 (PCR) Negative SARS-CoV-2 (Negative) Influenza Type A (PCR) Negative PCR FLU A (Negative) Influenza Type B (PCR) Negative PCR FLU B (Negative) RSV (PCR) Negative PCR RSV (Negative) Imaging Data Chest x-ray: Attestation: I have reviewed the pertinent imaging results. My impression: Right lower lobe infiltrate suspicious for lobar pneumonia. CT scan - head: Attestation: I have reviewed the pertinent imaging results. Radiologist's impression: Impression: 1. No acute intracranial abnormality identified. 2. Paranasal sinus disease with findings suggestive of acute sinusitis involving the right maxillary and sphenoid sinuses. 3. Similar mild cerebral volume loss and findings suggestive of chronic small vessel ischemic change. ECG Data Attestation: I personally reviewed and interpreted this ECG as follows: Interpretation: Normal sinus rhythm Rate: Rate 90 MN: 180 QRS axis: Normal axis. Q-waves in leads V1 and V2 ST segment/T wave: No ST segment elevation or depression QTc: 425 Discharge Plan Discharge Condition: Improved Activity Level: No Restrictions Discharge Diet: Regular
--- NOTE | 2023-09-23 09:28 | XR_ITS ---
Patient: LAURO MORA Facility:?[facility] Patient ID:?[id number] Site Patient ID:?[id number]. Site :?[id number] Study:?XRay-Chest 2 view-09/23/2023 10:33:25 AM Ordering Physician:Ok Pennington Final Report: INDICATION: Fever. Cough. Weakness. COMPARISON: 03/11/2023. PET-CT 09/05/2023 TECHNIQUE: 2 views. FINDINGS: Medical Devices: Unchanged left-sided Port-A-Cath. Interval placement of a right-sided dual lead cardiac conduction device. The right ventricular lead is coiled in the right atrium. The tip of the right ventricular lead projects over the expected location of the right ventricle, however, to the left of the lower thoracic spine.. Lung Volumes: Increased lung volumes suggest chronic obstructive airways disease. No significant atelectasis. Lungs: Chronic unchanged peripheral right basilar reticular opacity consistent with nonspecific fibrosis. Otherwise clear lungs. Pleura and Pleural spaces: No significant pleural effusion. No pneumothorax. Mediastinum: Normal cardiomediastinal silhouette. Bony Thorax and Soft Tissues: No significant incidental findings. IMPRESSION: 1. No radiographic findings to explain the history of a cough and fever. 2. Interval placement of a right-sided dual lead cardiac conduction device with coiling of the right ventricular lead as described above. 3. Chronic peripheral right basilar nonspecific fibrosis. Dictated by Yovanny Lizama MD @ 09/23/2023 10:54:14 AM Signed by:?Yovanny Lizama MD @09/23/2023 10:54:14 AM (Electronic Signature)
[2023-09-23] MEDS: 0.9 % SODIUM CHLORIDE 1000 ml 1,000 ML IV (09:55)
[2023-09-23 10:03] LABS: Lactate* 1.2 mmol/L (0.5-1.9)
[2023-09-23 10:07] LABS: Basophils Absolute Auto 0.01 K/uL (0.00-0.30); Basophils Percent Auto 0.2 % (0.0-3.0); Hemoglobin* 11.5 gm/dL (12.0-16.0); Immature Granulocytes Abs Auto 0.01 K/uL (0.00-0.30); Immature Granulocytes Pct Auto 0.2 %; Lymphocytes Percent Auto 11.6 % (20-44); Mean Corpuscular HGB Conc 32 gm/dL (32-36); Mean Corpuscular Hemoglobin 30 pg (26-34); Mean Corpuscular Volume 94 fL (80-100); Monocytes Percent Auto 17.4 % (0.0-11.0); Neutrophils Absolute Auto 3.21 K/uL (1.7-7.0); Neutrophils Percent Auto 70.6 % (42.0-72.0); Platelet Count* 102 K/uL (140-440); RDW Coefficient of Variation % 12.9 % (11.5-15.5); Red Blood Count 3.82 m/uL (4.00-5.20); White Blood Count* 4.55 K/uL (4.50-11.00)
[2023-09-23] MEDS: APIXABAN 5 MG TABLET 2.5 MG PO ×2 (10:18→20:32)
[2023-09-23 10:20] LABS: Chloride* 106 mmol/L (96-114); Slide Review Reflex No; Sodium* 135 mmol/L (135-149)
[2023-09-23 10:23] LABS: Anion Gap 4 mEq/L (7-15); Blood Urea Nitrogen* 18 mg/dL (7-30); Carbon Dioxide* 25 mmol/L (20-32); Creatinine* 0.6 mg/dL (0.5-1.5); Est. Creatinine Clearance* 33.41; Estimated Glomerular Filt Rate 86 ml/min
[2023-09-23 10:24] LABS: Calcium* 8.9 mg/dL (8.4-10.6); Glucose* 176 mg/dL (60-115)
[2023-09-23 10:36] LABS: Troponin I* 0.03 ng/mL (0.01-0.04)
[2023-09-23 10:43] LABS: PCR FLU A Negative PCR FLU A (Negative); PCR FLU B Negative PCR FLU B (Negative); PCR RSV Negative PCR RSV (Negative); SARS PCR* Negative SARS-CoV-2 (Negative)
[2023-09-23] MEDS: FLECAINIDE ACETATE 50 MG TABLET 75 MG PO ×2 (10:43→20:34)
--- NOTE | 2023-09-23 11:44 | CT_ITS ---
Patient: LAURO MORA Facility:?[facility] Patient ID:?[id number] Site Patient ID:?[id number]. Site :?[id number] Study:?CT-Head WITHOUT-09/23/2023 12:28:30 PM Ordering Physician:KAVEH Final Report: Indication: Headaches, weakness. Technique: Noncontrast CT of head was performed. Comparison: 05/23/2019. Findings: Brain parenchyma: Normal kim-white matter differentiation. Similar mild prominence of the convexity sulci and periventricular white matter hypodensities in keeping with chronic microvascular change and age related volume loss. No acute intraparenchymal hemorrhage. No mass effect or midline shift. Extra-axial spaces: No extra-axial collection. Ventricular system: Unremarkable for age. Paranasal sinuses and mastoid air cells: Mucosal thickening of the maxillary, ethmoid and sphenoid sinuses with air-fluid level in the right sphenoid sinus and right maxillary sinus. Orbits: Unremarkable. Bones: No calvarial fracture. Impression: 1. No acute intracranial abnormality identified. 2. Paranasal sinus disease with findings suggestive of acute sinusitis involving the right maxillary and sphenoid sinuses. 3. Similar mild cerebral volume loss and findings suggestive of chronic small vessel ischemic change. Please note that all CT scans at this facility use dose modulation, iterative reconstruction, and/or weight-based dosing when appropriate to reduce radiation dose to as low as reasonably achievable. Dictated by Alexa Rivera MD @ 09/23/2023 12:49:41 PM Signed by:?Alexa Rivera MD @09/23/2023 12:49:41 PM (Electronic Signature)
[2023-09-23 13:27] LABS: Appearance Urine Clear (Clear); Bilirubin Urine Negative (Negative); Blood Urine Negative (Negative); Color Urine Yellow (Yellow); Glucose Urine Trace (Negative); Ketones Urine Negative (Negative); Leukocyte Esterase Urine Negative (Negative); Nitrite Urine Negative (Negative); Protein Urine 1+ (Negative)
[2023-09-23 13:54] LABS: RBC Urine 0-2 (0-2); WBC Urine 0-2 (0-5)
[2023-09-23 13:56] LABS: Starch Urine Moderate
--- NOTE | 2023-09-23 14:05 | ED.NURSE ---
Report given to SNAPCARD. Pt to room CCU4
--- NOTE | 2023-09-23 14:52 | PM.IMHP1 ---
Hospitalist- H&P: HPI History of Present Illness Date Seen: 09/23/23 Chief complaint: weakness Narrative: Isabelle Kennedy is a 88 year old female who was BIBA to the ER this morning for weakness. She has noted upper respiratory symptoms for the last 3 days or so with cough productive of clear sputum (this morning, she had 1 episode of pink sputum, this has not recurred). She has not had dyspnea or chest pain, no fevers. She has had intermittent headache in the forehead region. She has also been weaker over the past few days, and this morning she was not able to get out of bed secondary to weakness. Typically, she is able to get out of bed and utilize her walker to perform ADLs. had quite a difficult time getting her up, so he called the ambulance for assistance. ER course and findings: - negative COVID, flu, RSV - reassuring chest x-ray, EKG, and troponin - sinusitis on head CT - baseline labs and vital signs - given ceftriaxone and azithromycin Upon arrival to the Med/Surg floor, patient is feeling a little better, but still weak. Histories updated below, Dr. Arrieta is PCP locally. Review of Systems Narrative: - weight has been stable (lost quite a bit during chemotherapy in 2019) - no GI symptoms or symptoms - no chest pain PFSH [facility] Medical History (Updated 09/23/23 @ 18:18 by Cris Pat MD) Diabetes type 2, controlled ?E11.9 - Type 2 diabetes mellitus without complications (ICD-10) Anemia due to acute blood loss ?D62 - Acute posthemorrhagic anemia (ICD-10) Upper gastrointestinal hemorrhage ?K92.2 - Gastrointestinal hemorrhage, unspecified (ICD-10) Malignant neoplasm of endometrium (2019) ?C54.1 - Malignant neoplasm of endometrium (ICD-10) Atrial fibrillation ?I48.91 - Unspecified atrial fibrillation (ICD-10) 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 - Drug-induced polyneuropathy (ICD-10) ?T45.1X5A - Adverse effect of antineoplastic and immunosuppressive drugs, initial encounter (ICD-10) Lung nodule ?R91.1 - Solitary pulmonary nodule (ICD-10) Surgical History (Updated 09/23/23 @ 16:40 by Cris Pat MD) S/P placement of cardiac pacemaker ?Z95.0 - Presence of cardiac pacemaker (ICD-10) H/O total hysterectomy with bilateral salpingo-oophorectomy (BSO) ?Z90.710 - Acquired absence of both cervix and uterus (ICD-10) ?Z90.722 - Acquired absence of ovaries, bilateral (ICD-10) ?Z90.79 - Acquired absence of other genital organ(s) (ICD-10) Social History (Updated 09/23/23 @ 16:42 by Cris Pat MD) Narrative: Lives with Joselyn (would share MDM duties with son Jagdeep if needed) in [place] independently. 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 DNR/DNI status. What is your current living situation?: I presently have a place to live Problems where you live: no known problems Problems where you live details: None In the past 12 months, utilities in danger of being shut off: no In past 12 months, lack of transportation kept you from medical appts, meetings, work, or getting things needed for daily living: no In the past 12 mos, have been you worried that your food would run out before you had money to buy more?: never true In the past 12 mos, the food you bought just didn't last and you didn't have money to buy more?: never true Smoking Status: Never smoker Do you use any of these nicotine containing products: None Second hand tobacco smoke exposure: No How often do you have a drink containing alcohol: never How often do you have six or more drinks on one occasion: Never AUDIT-C Alcohol total score: 0 Non-prescribed substance use: denies use How often does anyone, including family, friends and others, physically hurt you: never How often does anyone, including family, friends and others, insult or talk down to you: never How often does anyone, including family, friends and others, threaten you with harm: never How often does anyone, including family, friends and others, scream or curse at you: never service: No Meds Home Medications and Allergies Home Medications Medication Instructions Recorded Confirmed Type apixaban 2.5 mg tablet (Eliquis) 2.5 mg PO BID 12/18/21 09/23/23 History atorvastatin 10 mg tablet 10 mg PO HS 12/18/21 09/23/23 History flecainide 150 mg tablet 75 mg PO BID 12/18/21 09/23/23 History multivitamin 1 tab PO DAILY 12/18/21 09/23/23 History omeprazole 20 mg capsule,delayed 20 mg PO BID 12/18/21 09/23/23 History release oxybutynin chloride 5 mg tablet 5 mg PO BID 12/18/21 09/23/23 History potassium chloride 20 mEq 40 meq PO DAILY 12/18/21 09/23/23 History tablet,extended release(part/cryst) furosemide 20 mg tablet 20 mg PO QAM 01/16/23 09/23/23 History alendronate 70 mg tablet 70 mg PO Q7D 03/11/23 09/23/23 History gabapentin 300 mg capsule 300 mg PO HS 09/23/23 09/23/23 History metoprolol succinate 25 mg 25 mg PO DAILY 09/23/23 09/23/23 History tablet,extended release 24 hr olopatadine 0.1 % eye drops 1 drp ophthalmic (eye) BID 09/23/23 09/23/23 History Allergies Allergy/AdvReac Type Severity Reaction Status Date / Time metformin Allergy Verified 09/16/23 10:33 Exam Narrative: Exam Narrative: GEN: Alert and oriented, sitting comfortably in bedside chair HEENT: Mild yellowish drainage from bilateral eyes, EOMIs bilaterally, no scleral icterus CV: RRR, No concerning murmurs R: LCTA bilaterally without concerning wheezing Ab: soft and nontender Ext: wwp, 1+ edema BLE Skin: No concerning skin lesions or rashes on exposed skin Neuro: Nonfocal Psych: Appropriate Const: Vital Signs, click to edit/add: Vital Signs - 24 hr 09/23/23 08:54 09/23/23 09:05 09/23/23 09:06 Temperature 98.9 F Pulse Rate 90 90 Pulse Rate [Left P ulse Oximeter] Pulse Rate [Pulse Oximeter] 90 Respiratory Rate 22 Blood Pressure 113/60 Blood Pressure [Ri ght Arm] Blood Pressure [Ri ght Upper Arm] 119/56 L Pulse Oximetry 94 95 95 Oxygen Delivery Me thod Room Air 09/23/23 09:15 09/23/23 09:31 09/23/23 09:37 Temperature Pulse Rate 91 91 Pulse Rate [Left P ulse Oximeter] Pulse Rate [Pulse Oximeter] Respiratory Rate Blood Pressure 117/58 L Blood Pressure [Ri ght Arm] Blood Pressure [Ri ght Upper Arm] Pulse Oximetry 95 95 Oxygen Delivery Me thod 09/23/23 09:45 09/23/23 10:00 09/23/23 10:01 Temperature Pulse Rate 90 89 85 Pulse Rate [Left P ulse Oximeter] Pulse Rate [Pulse Oximeter] Respiratory Rate Blood Pressure 123/60 Blood Pressure [Ri ght Arm] Blood Pressure [Ri ght Upper Arm] Pulse Oximetry 95 96 96 Oxygen Delivery Me thod 09/23/23 10:15 09/23/23 10:39 09/23/23 10:45 Temperature Pulse Rate 82 82 85 Pulse Rate [Left P ulse Oximeter] Pulse Rate [Pulse Oximeter] Respiratory Rate Blood Pressure Blood Pressure [Ri ght Arm] Blood Pressure [Ri ght Upper Arm] Pulse Oximetry 96 97 97 Oxygen Delivery Nm thod 09/23/23 11:00 09/23/23 11:01 09/23/23 13:42 Temperature Pulse Rate 74 71 Pulse Rate [Left P ulse Oximeter] Pulse Rate [Pulse Oximeter] Respiratory Rate Blood Pressure 131/66 Blood Pressure [Ri ght Arm] Blood Pressure [Ri ght Upper Arm] Pulse Oximetry 95 96 94 [facility] 09/23/23 14:09 Temperature Pulse Rate Pulse Rate [Left P ulse Oximeter] 84 Pulse Rate [Pulse Oximeter] Respiratory Rate 18 Blood Pressure Blood Pressure [Ri ght Arm] 124/86 Blood Pressure [Ri ght Upper Arm] Pulse Oximetry 94 [facility]xygen [facility] Hospitalist - H&P: Result Labs Labs: Short CBC 09/23/23 Range/Units 09:58 WBC 4.55 (4.50-11.00) K/uL Hgb 11.5 L (12.0-16.0) gm/dL Hct 36.0 (33.0-51.0) % Plt Count 102 L (140-440) K/uL BMP 09/23/23 09:58 Sodium 135 Potassium 4.0 Chloride 106 Carbon Dioxide 25 BUN 18 Creatinine 0.6 Glucose 176 H Calcium 8.9 Cardiac Enzymes 09/23/23 Range/Units 09:58 Troponin I 0.03 (0.01-0.04) ng/mL Urine 09/23/23 Range/Units 13:45 Urine Color Yellow (Yellow) Urine Appearance Clear (Clear) Urine pH 7.0 (5.0-8.5) Ur Specific [place] 1.020 (1.000-1.030) Urine Protein 1+ A (Negative) Urine Glucose (UA) Trace A (Negative) Assessment and Plan Assessment and plan (1) Sinusitis: Problem comment: - recent URI, + sinusitis on imaging 09/22 - Amoxicillin + probiotics (09/22), symptomatic cares Status: Acute (2) Weakness: Problem comment: - therapies ordered Status: Acute (3) Diabetes type 2, controlled: Problem comment: - last A1C 5.6, not currently on any medication - appears to be in remission since significant weight loss in 2019 Status: Acute (4) Atrial fibrillation: Problem comment: - currently in sinus rhythm, on Metoprolol and Flecainide, anticoagulated on BID Apixaban Status: Acute Plan - per above - and son updated at bedside, questions answered
--- NOTE | 2023-09-23 15:51 | REH.OT ---
OT: Orders received when came to floor this afternoon. Patient with other disciplines x2. Will schedule eval for am.
[2023-09-23 17:25] LABS: Erythrocyte SedimentationRate* 3 mm/hr (2-20)
[2023-09-23] MEDS: LACTOBACILLUS ACIDOPHILUS 1 TABLET 1 TAB PO (18:43)
--- NOTE | 2023-09-23 18:59 | PC.NURSE ---
Nursing Care Hours: [id number] Pt this shift calm and cooperative, alert to self and situation. No c/o pain at this time. Ate about 50% of meal plus 50% of ensure. Ax1 to bathroom with walker and gait belt, gait steady. Incontinent void brief changed x1 and continent void in toilet x1, urine foul smelling. Productive cough noted.
[2023-09-23] MEDS: AMOXICILLIN 250 MG CAPSULE 500 MG PO (20:33)
[2023-09-23] MEDS: GABAPENTIN 300 MG CAPSULE PO (20:33)
[2023-09-23] MEDS: OMEPRAZOLE 20 MG CAPSULE DR PO (20:35)
[2023-09-23] MEDS: ATORVASTATIN 10 MG TABLET PO (20:35)
[2023-09-23] MEDS: SODIUM CHLORIDE 0.9 % (FLUSH) 10 ML SYRINGE 5 ML IVF (20:36)
[2023-09-24] VITALS (7 sets, daily range): BP systolic 102–143; BP diastolic 53–71; PULSE 75–97; RESP 20–22; TEMP 36.4–38; O2SAT 93–100
[2023-09-24] MEDS: ACETAMINOPHEN 325 MG TABLET PO (03:24)
[2023-09-24 06:20] LABS: Basophils Absolute Auto 0.02 K/uL (0.00-0.30); Basophils Percent Auto 0.3 % (0.0-3.0); Eosinophils Absolute Auto 0.01 K/uL (0.00-0.50); Eosinophils Percent Auto 0.1 % (0.0-7.0); Hematocrit 33.3 % (33.0-51.0); Hemoglobin* 10.8 gm/dL (12.0-16.0); Immature Granulocytes Abs Auto 0.02 K/uL (0.00-0.30); Immature Granulocytes Pct Auto 0.3 %; Lymphocytes Percent Auto 7.9 % (20-44); Mean Corpuscular HGB Conc 32 gm/dL (32-36); Mean Corpuscular Hemoglobin 30 pg (26-34); Mean Corpuscular Volume 93 fL (80-100); Neutrophils Percent Auto 81.4 % (42.0-72.0); Platelet Count* 105 K/uL (140-440); RDW Coefficient of Variation % 13.1 % (11.5-15.5); Red Blood Count 3.57 m/uL (4.00-5.20); White Blood Count* 6.97 K/uL (4.50-11.00)
[2023-09-24 06:31] LABS: Chloride* 110 mmol/L (96-114); Sodium* 136 mmol/L (135-149)
[2023-09-24 06:32] LABS: Potassium* 3.5 mmol/L (3.6-5.1); Slide Review Reflex No
[2023-09-24 06:34] LABS: Creatinine* 0.6 mg/dL (0.5-1.5); Est. Creatinine Clearance* 32.17; Estimated Glomerular Filt Rate 86 ml/min
[2023-09-24 06:35] LABS: Anion Gap 0 mEq/L (7-15); Blood Urea Nitrogen* 16 mg/dL (7-30); Calcium* 8.5 mg/dL (8.4-10.6); Carbon Dioxide* 26 mmol/L (20-32); Glucose* 149 mg/dL (60-115)
--- NOTE | 2023-09-24 07:12 | PC.NURSE ---
Pt alert and oriented to self only. Pt had temperature of 100.4, managed with PRN Tylenol. Pt denies pain, SOB, chest pain, and N/V. Pt is up SBA/A1 with walker and gait belt. Pt did not void during shift [id number], bladder scanned x3, 258 ml was the highest scan, pt reports no urge to urinate, and pt is non tender to palpation. Pt slept throughout most of night. Night uneventful. ?
[2023-09-24] MEDS: LACTOBACILLUS ACIDOPHILUS 1 TABLET 1 TAB PO ×2 (08:13→11:55)
[2023-09-24] MEDS: POTASSIUM BICARB 25 MEQ EFFERVESCENT TAB PO ×2 (08:17→10:34)
[2023-09-24] MEDS: AMOXICILLIN 250 MG CAPSULE 500 MG PO (08:58)
[2023-09-24] MEDS: OMEPRAZOLE 20 MG CAPSULE DR PO (08:58)
[2023-09-24] MEDS: FLECAINIDE ACETATE 50 MG TABLET 75 MG PO (08:58)
[2023-09-24] MEDS: METOPROLOL SUCCINATE (XL) 25 MG TAB PO (08:58)
[2023-09-24] MEDS: APIXABAN 5 MG TABLET 2.5 MG PO (08:58)
[2023-09-24] MEDS: SODIUM CHLORIDE 0.9 % (FLUSH) 10 ML SYRINGE 5 ML IVF (08:59)
--- NOTE | 2023-09-24 11:51 | PM.DS1 ---
DS: Providers Provider Time Seen by Provider: 09:09 Date Seen: 09/24/23 Date of admission: 09/23/23 13:39 Primary care physician: Alanna Arrieta MD Admitting Clinician: Hannah Gómez MD Consults: 09/23/23 13:42 Consult to Occupational Therapy [CONS] Routine Comment: Reason(s) for OT Consult:: Evaluate and Treat Any Restrictions?:: No Restrictions Consult to Physical Therapy [CONS] Routine Comment: Reason(s) for PT Consult:: Evaluate and Treat Any Restrictions?:: No Restrictions Consult to Cover Making Machine Operator [CONS] Routine Comment: Reason for Consult:: Social Service Consult 09/23/23 14:56 Consult to Occupational Therapy [CONS] Routine Comment: Reason(s) for OT Consult:: Difficulty Managing ADLs Any Restrictions?:: No Restrictions Attending Physician on discharge: Hannah Gómez MD Date of Discharge: 09/24/23 DS: Diagnosis Discharge Diagnosis (1) Weakness: Status: Resolved Problem details: - therapies ordered (2) Sinusitis: Status: Acute Problem details: - recent URI, + sinusitis on imaging 09/22 - Augmentin + probiotics (09/22), symptomatic cares (3) 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 Reviewed CXR. Hgb stable. Change from amoxicillin to augmentin. F/u with PCP later this week. (6) Hypokalemia: Status: Acute Problem details: mild, asymptomatic, oral replacement DS: Summary Hospital Course Hospital Course: Per H&P: Isabelle Kennedy is a 88 year old female who was BIBA to the ER this morning for weakness. She has noted upper respiratory symptoms for the last 3 days or so with cough productive of clear sputum (this morning, she had 1 episode of pink sputum, this has not recurred). She has not had dyspnea or chest pain, no fevers. She has had intermittent headache in the forehead region. She has also been weaker over the past few days, and this morning she was not able to get out of bed secondary to weakness. Typically, she is able to get out of bed and utilize her walker to perform ADLs. had quite a difficult time getting her up, so he called the ambulance for assistance. ER course and findings: - negative COVID, flu, RSV - reassuring chest x-ray, EKG, and troponin - sinusitis on head CT - baseline labs and vital signs - given ceftriaxone and azithromycin Upon arrival to the Med/Surg floor, patient is feeling a little better, but still weak. - 09/23 Isabelle is back to her baseline. Her son is in the room and notes that she is doing much better and seems to be back to her usual self and strength. She was seen by PT/OT and did very well. Did have temp of 100.4 at 3:30 am. I spoke with patient's son about this. He is comfortable taking her home and is planning on staying with her and her tonight. Time Spent with Patient Time attestation: Total time spent providing and/or coordinating discharge services: Exam Narrative: Exam Narrative: General: No acute distress. Awake, alert, oriented. Sitting in chair, eating breakfast. No pallor. No jaundice. HEENT: Mild yellowish drainage noted from both eyes, right more than left, without conjunctivitis. Cardiovascular: Regular rate and rhythm. No murmurs, gallops, or rubs. Respiratory: Clear to auscultation bilaterally. No wheezes or crackles. Abdomen: Bowel sounds present. Soft, nondistended, nontender. Extremities: 1+ bilateral lower extremity edema. Const: Vital Signs, click to edit/add: Vital Signs - 24 hr 09/23/23 13:42 09/23/23 14:09 09/23/23 14:09 Temperature Pulse Rate Pulse Rate [Left P ulse Oximeter] 84 Respiratory Rate 18 16 Blood Pressure [Ri ght Arm] 124/86 Pulse Oximetry 94 94 94 Oxygen Delivery Me thod Room Air Room Air Room Air 09/23/23 19:17 09/23/23 23:51 09/23/23 23:51 Temperature 98.5 F 98.3 F Pulse Rate 78 Pulse Rate [Left P ulse Oximeter] 90 86 Respiratory Rate 16 20 Blood Pressure [Ri ght Arm] 118/61 132/58 L Pulse Oximetry 96 93 Oxygen Delivery Me thod Room Air Room Air 09/24/23 03:16 09/24/23 03:24 09/24/23 07:00 Temperature 100.4 F H 100.4 F H Pulse Rate Pulse Rate [Left P ulse Oximeter] 97 76 Respiratory Rate 20 20 Blood Pressure [Ri ght Arm] 143/71 H Pulse Oximetry 93 Oxygen Delivery Me thod Room Air 09/24/23 07:04 09/24/23 07:29 09/24/23 08:09 Temperature 97.9 F 98.4 F Pulse Rate 87 Pulse Rate [Left P ulse Oximeter] 76 Respiratory Rate 20 Blood Pressure [Ri ght Arm] 120/62 Pulse Oximetry 95 Oxygen Delivery Me thod Room Air 09/24/23 11:12 Temperature 97.6 F Pulse Rate Pulse Rate [Left P ulse Oximeter] 75 Respiratory Rate 22 Blood Pressure [Ri ght Arm] 102/53 L Pulse Oximetry 100 Oxygen Delivery Me thod DS: Data Data Completed and Pending Completed studies during hospitalization: 09/23/2023 EKG: Undetermined rhythm, septal infarct, age undetermined, ST and T-wave abnormality, consider lateral ischemia. Heart rate 90 beats per minute. Study: XRay-Chest 2 view-09/23/2023 10:33:25 AM Ordering Physician: Jarrett Pennington Final Report: INDICATION: Fever. Cough. Weakness. COMPARISON: 03/11/2023. PET-CT 09/05/2023 TECHNIQUE: 2 views. FINDINGS: Medical Devices: Unchanged left-sided Port-A-Cath. Interval placement of a right-sided dual lead cardiac conduction device. The right ventricular lead is coiled in the right atrium. The tip of the right ventricular lead projects over the expected location of the right ventricle, however, to the left of the lower thoracic spine.. Lung Volumes: Increased lung volumes suggest chronic obstructive airways disease. No significant atelectasis. Lungs: Chronic unchanged peripheral right basilar reticular opacity consistent with nonspecific fibrosis. Otherwise clear lungs. Pleura and Pleural spaces: No significant pleural effusion. No pneumothorax. Mediastinum: Normal cardiomediastinal silhouette. Bony Thorax and Soft Tissues: No significant incidental findings. IMPRESSION: 1. No radiographic findings to explain the history of a cough and fever. 2. Interval placement of a right-sided dual lead cardiac conduction device with coiling of the right ventricular lead as described above. 3. Chronic peripheral right basilar nonspecific fibrosis. Dictated by Yovanny Lizama MD @ 09/23/2023 10:54:14 AM Signed by: Yovanny Lizama MD @09/23/2023 10:54:14 AM (Electronic Signature) Dictated By: Yovanny Lizama M.D. Signed By: 09/23/23 1055 DD/ 1054 TD/TT: 09/23/23 1054 Study: CT-Head WITHOUT-09/23/2023 12:28:30 PM Ordering Physician: SHAHRAM Final Report: Indication: Headaches, weakness. Technique: Noncontrast CT of head was performed. Comparison: 05/23/2019. Findings: Brain parenchyma: Normal kim-white matter differentiation. Similar mild prominence of the convexity sulci and periventricular white matter hypodensities in keeping with chronic microvascular change and age related volume loss. No acute intraparenchymal hemorrhage. No mass effect or midline shift. Extra-axial spaces: No extra-axial collection. Ventricular system: Unremarkable for age. Paranasal sinuses and mastoid air cells: Mucosal thickening of the maxillary, ethmoid and sphenoid sinuses with air-fluid level in the right sphenoid sinus and right maxillary sinus. Orbits: Unremarkable. Bones: No calvarial fracture. Impression: 1. No acute intracranial abnormality identified. 2. Paranasal sinus disease with findings suggestive of acute sinusitis involving the right maxillary and sphenoid sinuses. 3. Similar mild cerebral volume loss and findings suggestive of chronic small vessel ischemic change. Please note that all CT scans at this facility use dose modulation, iterative reconstruction, and/or weight-based dosing when appropriate to reduce radiation dose to as low as reasonably achievable. Dictated by Alexa Rivera MD @ 09/23/2023 12:49:41 PM Signed by: Alexa Rivera MD @09/23/2023 12:49:41 PM (Electronic Signature) Dictated By: Alexa Rivera M.D. Signed By: 09/23/23 1321 DD/ 1249 TD/TT: 09/23/23 1320 Labs on day of discharge: Labs from last 24 hours 09/24/23 09/23/23 09/23/23 06:08 14:47 13:45 WBC 6.97 RBC 3.57 L Hgb 10.8 L Hct 33.3 MCV 93 MCH 30 MCHC 32 RDW Coeff of Reginaldo 13.1 Plt Count 105 L Neut % (Auto) 81.4 H Lymph % (Auto) 7.9 L [place] % (Auto) 10.0 Eos % (Auto) 0.1 Baso % (Auto) 0.3 Neut # (Auto) 5.70 Lymph # (Auto) 0.60 L [place] # (Auto) 0.70 Eos # (Auto) 0.01 Baso # (Auto) 0.02 Abs Immat Gran (auto) 0.02 Imm/Tot Granulo (auto) 0.3 ESR 3 Sodium 136 Potassium 3.5 L Chloride 110 Carbon Dioxide 26 Anion Gap 0 L BUN 16 Creatinine 0.6 Estimated Creat Clear 32.17 Estimated GFR 86 Glucose 149 H Calcium 8.5 Urine Color Yellow Urine Appearance Clear Urine pH 7.0 Ur Specific [place] 1.020 Urine Protein 1+ A Urine Glucose (UA) Trace A Urine Ketones Negative Urine Blood Negative Urine Nitrite Negative Urine Bilirubin Negative Urine Urobilinogen 1.0 Ur Leukocyte Esterase Negative Urine RBC 0-2 Urine WBC 0-2 Ur Squamous Epith Cells None Urine Bacteria None Urine Starch Moderate A Lab Acknowledgement Test Added Preliminary micro results at discharge 09/23/23 11:24 Blood Culture - Preliminary Blood NO GROWTH AFTER 24 HOURS 09/23/23 11:18 Blood Culture - Preliminary Blood NO GROWTH AFTER 24 HOURS Discharge Plan Discharge Disposition: Home, Self-Care Date of Admission: 09/23/23 13:39 Attending Provider on Discharge: Hannah Gómez Primary Care Provider: Alanna Arrieta Condition: Improved Anticipated Discharge Date/Time: 09/24/23 12:00 Discharge Medications: New amoxicillin-pot clavulanate [Augmentin] 500-125 mg tablet 1 tab PO TID 7 Days Qty: 21 0RF Lactobacillus acidophilus 0.5 mg (100 million cell) Tablet 100 mmu cells PO TIDWM Qty: 60 0RF Continued furosemide 20 mg tablet 20 mg PO QAM Eliquis 2.5 mg tablet 2.5 mg PO BID atorvastatin 10 mg tablet 10 mg PO HS flecainide 150 mg tablet 75 mg PO BID multivitamin Tablet 1 tab PO DAILY omeprazole 20 mg capsule,delayed release(DR/EC) 20 mg PO BID oxybutynin chloride 5 mg tablet 5 mg PO BID potassium chloride 20 mEq tablet,ER particles/crystals 40 meq PO DAILY alendronate 70 mg tablet 70 mg PO Q7D Rx Instructions: THURS gabapentin 300 mg capsule 300 mg PO HS metoprolol succinate 25 mg tablet extended release 24 hr 25 mg PO DAILY olopatadine 0.1 % drops 1 drp ophthalmic (eye) BID Discharge Orders: Discharge Order (Routine); Ordered 09/24/23 Ordered By: Hannah Gómez Additional Instructions: Return for worsening fever, or if fever not resolving. Return for chest pain or shortness of breath. Activity Level: No Restrictions Discharge Diet: Regular Follow Up Appointments: Alanna Arrieta MD [Primary Care Provider] - (3-5 days) Forms: [facility] Info Instructions
--- NOTE | 2023-09-24 13:52 | PC.NURSE ---
Discharge: Patient pleasant and cooperative, only oriented to self and . Patient vitally stable, lungs with fine crackles, BS WNL, IV removed, catheter in place. Patient denies pain, and ambulates SBA with walker. Patient up in chair and tolerating regular diet, urinating and had 1 incontinent/continent BM. Patient with moist cough. Discharge paper work reviewed with patient and family, questions son had were answered. Patient left the floor by wheelchair to home at 1344.
== END 2023-09-24 13:44 | disposition home or self-care (01) ==
LOC: ED 12:17 → MEDSURG 13:39
PROVIDERS: Family Medicine; Admitting Provider Family Medicine; Emergency Provider Emergency Medicine; PCP Family Medicine; Visit Provider Family Medicine
DX: R53.1 Weakness (principal); J01.90 Acute sinusitis, unspecified; I48.91 Unspecified atrial fibrillation; C54.1 Malignant neoplasm of endometrium; C78.00 Secondary malignant neoplasm of unspecified lung; R05.9 Cough, unspecified; R04.2 Hemoptysis; D69.6 Thrombocytopenia, unspecified; E87.6 Hypokalemia; R60.0 Localized edema; R51.9 Headache, unspecified; H92.03 Otalgia, bilateral; E11.9 Type 2 diabetes mellitus without complications; K21.9 Gastro-esophageal reflux disease without esophagitis; G62.0 Drug-induced polyneuropathy; I10 Essential (primary) hypertension; Z79.01 Long term (current) use of anticoagulants; Z95.0 Presence of cardiac pacemaker; Z90.710 Acquired absence of both cervix and uterus; Z90.722 Acquired absence of ovaries, bilateral; Z90.79 Acquired absence of other genital organ(s); Z11.52 Encounter for screening for COVID-19; Z66 Do not resuscitate
CPT/HCPCS: 36415; 51798; 70450; 71046; 80048; 81001; 83605; 84484; 85025; 85651; 87040; 87631; 93005; 96360; 96361; 97116; 97161; 97165; 99285; G0378; A9270; J7030

== ENCOUNTER 2023-12-04 11:27 | Outpatient (RCR) | payer SELFPAY | END 2024-11-08 10:34 | disposition home or self-care (01) | LOC: MOW 11:27 | PROVIDERS: PCP Family Medicine; Visit Provider Family Medicine | DX: Z76.0 Encounter for issue of repeat prescription (principal) | CPT/HCPCS: S5170 ==

== ENCOUNTER 2024-01-23 13:10 | Outpatient (CLI) | payer MEDICARE, SELFPAY ==
--- NOTE | 2024-01-23 13:30 | PE_ITS ---
[facility] [address] [facility] [address] Phone:?[phone] Fax:?[phone] Referring Physician Information: Sandy Valdez M.D. [address] [facility] [address] Phone:?[phone] Fax:?[phone] Patient:Dave Kennedy D.O.B:?1935 Sex:?Female Phone:?[phone] [facility] MRN:?[id number] Exam Date:?01/23/2024 EXAM: PET/CT EYES TO THIGHS, CANCER RESTAGING CLINICAL INFORMATION: Endometrial cancer. TECHNICAL INFORMATION: Helical acquisition of data was obtained from the orbits to the upper thighs with reconstruction of 3.75 mm thick images at 3.[address] data was used for attenuation correction. PET scanning was performed through the same anatomic range 54 minutes following administration of 14.14 mCi of 18-FDG delivered intravenously. The patient's glucose at the time of the injection was 126 mg/dL. PET, CT and PET/CT fusion images are interpreted using a computer viewing workstation. PET, CT and PET/CT fusion images were archived and saved in the patient's permanent medical record. COMPARISON: PET-CT from 09/05/2023 and prior studies. INTERPRETATION: Head and Neck: There are no abnormal hypermetabolic foci within the head or neck. There is physiologic uptake in the intracranial soft tissues. Chest: Stable opacity in the right lower lobe treatment zone shows central clearing and low level FDG uptake (SUVmax = 1.64), suggesting a benign etiology (e.g., radiation fibrosis). No distinct viable residua. No new, enlarging, markedly hypermetabolic, or otherwise worrisome pulmonary nodules or masses. No intrathoracic lymphadenopathy size, morphology, or metabolic rate. Background mediastinal blood pool uptake has a maximum SUV of 2.78. Left chest port catheter terminates at the cavoatrial junction. Abdomen and Pelvis: There are no abnormal hypermetabolic foci within the abdomen or pelvis. Background hepatic parenchymal uptake has a maximum SUV of 3.15. There is physiologic excretion of radiotracer in the urine and bowel. Skeleton, Musculature, and Integument: No abnormal hypermetabolic foci within the skeleton. No paz osteoblastic or osteolytic disease. CONCLUSION: 1. No abnormal FDG uptake to indicate active malignancy. 2. 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 Electronically signed on 01/24/2024 1:19:00 PM by Jarrett Rich M.D.
== END 2024-01-23 13:11 | disposition home or self-care (01) ==
LOC: RAD 13:11
PROVIDERS: PCP Family Medicine; Visit Provider Internal Medicine Hematology & Oncology
DX: C54.1 Malignant neoplasm of endometrium (principal)
CPT/HCPCS: 78815; A9552

== ENCOUNTER 2024-02-05 14:31 | Outpatient (CLI) | payer MEDICARE, SELFPAY ==
--- NOTE | 2024-02-05 15:00 | CRLHL7_ITS ---
For Patients: As a result of the Century Cures Act, medical imaging exams and procedure reports are released immediately into your electronic medical record. You may view this report before your referring provider. If you have questions, please contact your health care provider. INDICATION: Redness and pitting edema TECHNIQUE: Ultrasound venous duplex lower left extremity. Compression venous exam was performed using kim-scale, color Doppler, and spectral Doppler analysis. COMPARISON: None. FINDINGS: Sonographic imaging demonstrates the left common femoral, deep femoral, superficial femoral, popliteal, posterior tibial and greater saphenous and the contralateral right common femoral veins to be fully compressible with normal color Doppler blood flow. IMPRESSION: Normal left lower extremity venous ultrasound, no sign of deep venous thrombosis. Dictated by Donell Polk MD @ 02/05/2024 3:49:01 PM (Electronically Signed)
== END 2024-02-05 14:32 | disposition home or self-care (01) ==
PROVIDERS: PCP Family Medicine; Visit Provider Internal Medicine Hematology & Oncology
DX: M79.89 Other specified soft tissue disorders (principal)
CPT/HCPCS: 93971

== ENCOUNTER 2024-02-18 14:00 | Outpatient (RCR) | payer MEDICARE, SELFPAY ==
[2023-10-15] MEDS: SODIUM CHLORIDE 0.9 % (FLUSH) 10 ML SYRINGE IVF (14:14)
[2023-10-15] MEDS: HEPARIN 500 UNIT/5 ML SYRINGE IVF (14:14)
[2023-11-26] MEDS: SODIUM CHLORIDE 0.9 % (FLUSH) 10 ML SYRINGE IVF (14:18)
[2023-11-26] MEDS: HEPARIN 500 UNIT/5 ML SYRINGE IVF (14:18)
[2024-01-07] MEDS: SODIUM CHLORIDE 0.9 % (FLUSH) 10 ML SYRINGE IVF (13:59)
[2024-01-07] MEDS: HEPARIN 500 UNIT/5 ML SYRINGE IVF (14:00)
[2024-02-18] MEDS: HEPARIN 500 UNIT/5 ML SYRINGE IVF (14:10)
[2024-02-18] MEDS: SODIUM CHLORIDE 0.9 % (FLUSH) 10 ML SYRINGE IVF (14:10)
== END 2024-03-14 23:59 | disposition home or self-care (01) ==
LOC: CCIC 14:00
PROVIDERS: PCP Family Medicine; Referring Provider Family Medicine; Visit Provider Internal Medicine Hematology & Oncology
DX: C54.1 Malignant neoplasm of endometrium (principal)
CPT/HCPCS: 80053; 85025; 99211; 99214; G0463; J1642

== ENCOUNTER 2024-05-06 14:45 | Outpatient (RCR) | payer MEDICARE, SELFPAY ==
[2024-03-16 09:00] VITALS: BMI 20.1
[2024-03-16 09:45] VITALS: BMI 20.1
[2024-03-18 11:00] VITALS: BMI 20.1
[2024-03-23 09:36] VITALS: BMI 20.1
[2024-03-30 09:55] VITALS: BMI 20.1
[2024-04-01 09:53] VITALS: BMI 20.1
[2024-04-06 11:49] VITALS: BMI 20.1
[2024-04-08 10:43] VITALS: BMI 20.1
[2024-04-20 14:13] VITALS: BMI 20.1
== END 2024-05-06 16:55 | disposition home or self-care (01) ==
PROVIDERS: PCP Family Medicine; Visit Provider Family Medicine
DX: R60.0 Localized edema (principal); R26.89 Other abnormalities of gait and mobility; R26.81 Unsteadiness on feet; Z51.89 Encounter for other specified aftercare
CPT/HCPCS: 97110; 97112; 97140; 97162; 97165; 97535; X5282

== ENCOUNTER 2024-05-14 13:45 | Outpatient (CLI) | payer MEDICARE, SELFPAY ==
--- NOTE | 2024-05-14 14:30 | PE_ITS ---
[facility] [address] [facility] [address] [facility] [address] Phone:?[phone] Fax:?[phone] Referring Physician Information: Sandy Valdez M.D. [address] [facility] [address] Phone:?[phone] Fax:?[phone] Patient:Dave Kennedy D.O.B:?1935 Sex:?Female Phone:?[phone] [facility] MRN:?[id number] Exam Date:?05/14/2024 EXAM:?PET/CT EYES TO THIGHS, CANCER RESTAGING CLINICAL INFORMATION: Endometrial cancer TECHNICAL INFORMATION: Helical acquisition of data was obtained from the orbits to the upper thighs with reconstruction of 3.75 mm thick images at 3.[address] data was used for attenuation correction. PET scanning was performed through the same anatomic range 60 minutes following administration of 12.58 mCi of 18-FDG delivered intravenously. The patient's glucose at the time of the injection was 113 mg/dL. PET, CT and PET/CT fusion images are interpreted using a computer viewing workstation. PET, CT and PET/CT fusion images were archived and saved in the patient's permanent medical record. COMPARISON: PET/CT 01/23/2024 and other prior exams INTERPRETATION: Mediastinal blood pool activity: 3.16 Background liver parenchymal uptake: 3.39 Head and Neck: There are no abnormal hypermetabolic foci within the head or neck. There is physiologic uptake in the intracranial soft tissues. Chest: Stable opacity in the right lower lobe with low level radiotracer avidity and an SUV max of 2.3, previously 1.64. As before, findings are favored to be related to posttreatment changes/radiation fibrosis. No lymphadenopathy detected. A stable 3 mm nodule in the superior segment left lower lobe (series 202 image 90). Left chest wall flynn catheter. Right chest wall cardiac device. Abdomen and Pelvis: There are no abnormal hypermetabolic foci within the abdomen or pelvis. There is physiologic excretion of radiotracer in the urine and bowel. A 3 mm calyceal stone in the interpolar region of the left kidney. No hydronephrosis. Aortoiliac atherosclerosis. Moderate stool burden. Postsurgical changes of hysterectomy. Skeleton, Musculature, and Integument: No abnormal hypermetabolic foci within the skeleton. No paz osteoblastic or osteolytic disease. Stable mild compression deformity of the L4 vertebral body. CONCLUSION: * Stable exam. No abnormal FDG uptake to indicate active malignancy. 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 * A stable small 3 mm nodule in the left lower lobe. Attention on follow-up imaging. Electronically signed on 05/19/2024 4:09:00 PM by Dante Bustillo D.O
== END 2024-05-14 13:46 | disposition home or self-care (01) ==
LOC: RAD 13:46
PROVIDERS: PCP Family Medicine; Visit Provider Internal Medicine Hematology & Oncology
DX: C54.1 Malignant neoplasm of endometrium (principal)
CPT/HCPCS: 78815; A9552

== ENCOUNTER 2024-08-09 01:52 | Outpatient (CLI) | payer MEDICARE, SELFPAY | END 2024-08-09 01:53 | disposition home or self-care (01) | PROVIDERS: PCP Family Medicine; Visit Provider Family Medicine | DX: R11.2 Nausea with vomiting, unspecified (principal); R19.7 Diarrhea, unspecified | CPT/HCPCS: A0425; A0429 ==

== ENCOUNTER 2024-08-09 02:32 | Emergency (ER) | payer MEDICARE, SELFPAY ==
[2024-08-09 02:35] VITALS: BP 153/81; PULSE 77; RESP 18; TEMP 37.2; O2SAT 97
--- OUTSIDE RECORDS SUMMARY | 2024-08-09 02:35 | XMS_ITS | CCD ---
Author Name Interface, [id number] lity Address [address] [facility] [address] [address] Organization [facility] Address [address] [facility] [address] [address] Care Plan Date Type Value 08/13/2019 LABORDER PET/CT scan, sku ll base/mid thigh 08/18/2019 LABORDER Miscellaneous pa trell Reason for Visit PORT - 66 POWER PORT PLACEMENT - 66 POWER PORT PLACEMENT Encounters Date Name 08/25/2019 Endometrial carcinom a Medications Date Name Route Dose Frequency Instructions Start Date End Date Status 020 Atorvastatin Oral Oral 10.0 mg 020 active 020 Furosemide Oral Oral 20.0 mg 020 active 020 Metoprolol Oral (Tartrate) Oral 25.0 mg 020 active 020 Rivaroxaban Oral Oral 20.0 mg 020 active 020 Alendronate Oral (Weekly) Oral 70.0 mg 020 active 019 Flecainide Oral Oral 019 active 019 Olopatadine Ophthalmic Drops 0.1 % Ophthalmic 1.0 [drp] 019 active 018 Fluticasone Nasal [place] 50 mcg/actuation Nasal 2.0 {spray} 018 active 007 Flaxseed Oral Oral 007 inactive Problems Diagnosis Status Date of Diagnosi s Endometrial carcinoma Active Atrial fibrillation Active Meniere's disease Active Nephrolithiasis Active HTN Active Osteopenia (disorder) Active Diabetes mellitus type II Active Pure hypercholesterolemia (disorder) Active 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
--- OUTSIDE RECORDS SUMMARY | 2024-08-09 02:35 | XMS_ITS ---
Author Name Interface, [id number] lity Address [address] [facility] [address] [address] Organization [facility] Address [address] [facility] [address] [address] Care Team Providers Care Elephant Keeper Name Role Phone Eduardo German Unavailable Unavailable Allergies and Adverse Reactions Medication/Group Name Reaction Severity Date METFORMIN Diarrhea 08/17/2019 Plan Date Type Value 08/31/2019 APPOINTMENT PORT - 66 POWER PORT PLACEMENT - 66 POWER PORT PLACEMENT 08/25/2019 APPOINTMENT PSTOP - 60 PSTOP - TREATMENT PLANNING - PER Reason for Visit PORT - 66 POWER PORT PLACEMENT - 66 POWER PORT PLACEMENT Encounters Date Name 08/25/2019 Endometrial carcinom a Diagnostic Results Date Type Test Units Lower Limit Upper Limit Result Flag Comments Status Ordered By Specimen Source Lab Address 11/08 [facility] other lab See d Medications Date Name Route Dose Frequency Instructions Start Date End Date Status 12/01 Solu-Cortef intravenously 100.0 mg Re-initiate treatment only upon physician approval. 2019 active 12/01 diphenhydramine hydrochloride 0.5 MG/ML Injectable Solution intravenously 50.0 mg Re-initiate treatment only upon physician approval. 2019 active 12/01 dexamethasone phosphate 4 MG/ML Injectable Solution intravenously 10.0 mg once 2019 active 12/01 paclitaxel 6 MG/ML Injectable Solution intravenously 320.0 mg once Administer using [id number]-STAZ-jimg aining equipment and through an in-line 0.22 micron filter.Paclit lou is a vascular irritant. 2019 active 12/01 1 ML epinephrine 1 MG/ML Injection intramuscularly 0.3 mg once Re-initiate treatment only upon physician approval. 2019 active 12/01 Fosaprepitant IV intravenously 150.0 mg once 2019 active 12/01 carboplatin 10 MG/ML Injectable Solution intravenously 470.0 mg once Mix in D5W or NS.Carboplati n is an irritant. 2019 active 12/01 methylprednisolone 2000 MG Injection intravenously 125.0 mg Re-initiate treatment only upon physician approval. 2019 active 12/01 famotidine intravenously 20.0 mg once 2019 active 12/01 Palonosetron IV intravenously 0.25 mg once 2019 active 12/01 diphenhydramine hydrochloride 0.5 MG/ML Injectable Solution intravenously 25.0 mg once 2019 active 11/10 diphenhydramine hydrochloride 0.5 MG/ML Injectable Solution intravenously 50.0 mg Re-initiate treatment only upon physician approval. 2019 active 11/10 Fosaprepitant IV intravenously 150.0 mg once 2019 active 11/10 diphenhydramine hydrochloride 0.5 MG/ML Injectable Solution intravenously 25.0 mg once 2019 active 11/10 carboplatin 10 MG/ML Injectable Solution intravenously 470.0 mg once Mix in D5W or NS.Carboplati n is an irritant. 2019 active 11/10 methylprednisolone 2000 MG Injection intravenously 125.0 mg Re-initiate treatment only upon physician approval. 2019 active 11/10 1 ML epinephrine 1 MG/ML Injection intramuscularly 0.3 mg once Re-initiate treatment only upon physician approval. 2019 active 11/10 dexamethasone phosphate 4 MG/ML Injectable Solution intravenously 10.0 mg once 2019 active 11/10 Palonosetron IV intravenously 0.25 mg once 2019 active 11/10 paclitaxel 6 MG/ML Injectable Solution intravenously 320.0 mg once Administer using [id number]-[id number] aining equipment and through an in-line 0.22 micron filter.Paclit lou is a vascular irritant. 2019 active 11/10 famotidine intravenously 20.0 mg once 2019 active 11/10 Solu-Cortef intravenously 100.0 mg Re-initiate treatment only upon physician approval. 2019 active 10/20 famotidine intravenously 20.0 mg once 2019 active 10/20 paclitaxel 6 MG/ML Injectable Solution intravenously 320.0 mg once Administer using Vgt-[id number]-njoo aining equipment and through an in-line 0.22 micron filter.Paclit lou is a vascular irritant. 2019 active 10/20 methylprednisolone 2000 MG Injection intravenously 125.0 mg Re-initiate treatment only upon physician approval. 2019 active 10/20 Palonosetron IV intravenously 0.25 mg once 2019 active 10/20 Solu-Cortef intravenously 100.0 mg Re-initiate treatment only upon physician approval. 2019 active 10/20 dexamethasone phosphate 4 MG/ML Injectable Solution intravenously 10.0 mg once 2019 active 10/20 carboplatin 10 MG/ML Injectable Solution intravenously 470.0 mg once Mix in D5W or NS.Carboplati n is an irritant. 2019 active 10/20 Fosaprepitant IV intravenously 150.0 mg once 2019 active 10/20 1 ML epinephrine 1 MG/ML Injection intramuscularly 0.3 mg once Re-initiate treatment only upon physician approval. 2019 active 10/20 diphenhydramine hydrochloride 0.5 MG/ML Injectable Solution intravenously 50.0 mg Re-initiate treatment only upon physician approval. 2019 active 10/20 diphenhydramine hydrochloride 0.5 MG/ML Injectable Solution intravenously 25.0 mg once 2019 active 09/29 1 ML epinephrine 1 MG/ML Injection intramuscularly 0.3 mg once Re-initiate treatment only upon physician approval. 2019 active 09/29 methylprednisolone 2000 MG Injection intravenously 125.0 mg Re-initiate treatment only upon physician approval. 2019 active 09/29 Fosaprepitant IV intravenously 150.0 mg once 2019 active 09/29 paclitaxel 6 MG/ML Injectable Solution intravenously 320.0 mg once Administer using [id number] aining equipment and through an in-line 0.22 micron filter.Paclit lou is a vascular irritant. 2019 active 09/29 Palonosetron IV intravenously 0.25 mg once 2019 active 09/29 dexamethasone phosphate 4 MG/ML Injectable Solution intravenously 10.0 mg once 2019 active 09/29 famotidine intravenously 20.0 mg once 2019 active 09/29 diphenhydramine hydrochloride 0.5 MG/ML Injectable Solution intravenously 25.0 mg once 2019 active 09/29 carboplatin 10 MG/ML Injectable Solution intravenously 470.0 mg once Mix in D5W or NS.Carboplati n is an irritant. 2019 active 09/29 Solu-Cortef intravenously 100.0 mg Re-initiate treatment only upon physician approval. 2019 active 09/29 diphenhydramine hydrochloride 0.5 MG/ML Injectable Solution intravenously 50.0 mg Re-initiate treatment only upon physician approval. 2019 active 09/11 Atorvastatin Oral Oral 10.0 mg 2019 active 09/11 Furosemide Oral Oral 20.0 mg 2019 active 09/08 diphenhydramine hydrochloride 0.5 MG/ML Injectable Solution intravenously 25.0 mg once 2019 active 09/08 paclitaxel 6 MG/ML Injectable Solution intravenously 320.0 mg once Administer using Bmb-PYZY-zwvv aining equipment and through an in-line 0.22 micron filter.Paclit lou is a vascular irritant. 2019 active 09/08 1 ML epinephrine 1 MG/ML Injection intramuscularly 0.3 mg once Re-initiate treatment only upon physician approval. 2019 active 09/08 Fosaprepitant IV intravenously 150.0 mg once 2019 active 09/08 carboplatin 10 MG/ML Injectable Solution intravenously 470.0 mg once Mix in D5W or NS.Carboplati n is an irritant. 2019 active 09/08 Solu-Cortef intravenously 100.0 mg Re-initiate treatment only upon physician approval. 2019 active 09/08 famotidine intravenously 20.0 mg once 2019 active 09/08 methylprednisolone 2000 MG Injection intravenously 125.0 mg Re-initiate treatment only upon physician approval. 2019 active 09/08 dexamethasone phosphate 4 MG/ML Injectable Solution intravenously 10.0 mg once 2019 active 09/08 Palonosetron IV intravenously 0.25 mg once 2019 active 09/08 diphenhydramine hydrochloride 0.5 MG/ML Injectable Solution intravenously 50.0 mg Re-initiate treatment only upon physician approval. 2019 active 08/18 paclitaxel 6 MG/ML Injectable Solution intravenously 320.0 mg once Administer using [id number]-[id number]-frkh aining equipment and through an in-line 0.22 micron filter.Paclit lou is a vascular irritant. 2019 active 08/18 methylprednisolone 2000 MG Injection intravenously 125.0 mg Re-initiate treatment only upon physician approval. 2019 active 08/18 diphenhydramine hydrochloride 0.5 MG/ML Injectable Solution intravenously 25.0 mg once 2019 active 08/18 diphenhydramine hydrochloride 0.5 MG/ML Injectable Solution intravenously 50.0 mg Re-initiate treatment only upon physician approval. 2019 active 08/18 Solu-Cortef intravenously 100.0 mg Re-initiate treatment only upon physician approval. 2019 active 08/18 Palonosetron IV intravenously 0.25 mg once 2019 active 08/18 dexamethasone phosphate 4 MG/ML Injectable Solution intravenously 10.0 mg once 2019 active 08/18 Fosaprepitant IV intravenously 150.0 mg once 2019 active 08/18 1 ML epinephrine 1 MG/ML Injection intramuscularly 0.3 mg once Re-initiate treatment only upon physician approval. 2019 active 08/18 carboplatin 10 MG/ML Injectable Solution intravenously 470.0 mg once Mix in D5W or NS.Carboplati n is an irritant. 2019 active 08/18 famotidine intravenously 20.0 mg once 2019 active 07/12 Metoprolol Oral (Tartrate) Oral 25.0 mg 2019 active 06/13 Rivaroxaban Oral Oral 20.0 mg 2019 active 06/12 Alendronate Oral (Weekly) Oral 70.0 mg 2019 active 04/25 Flecainide Oral Oral 2018 active 07/29 Olopatadine Ophthalmic Drops 0.1 % Ophthalmic 1.0 [drp] 2018 active 05/14 Fluticasone Nasal [place] 50 mcg/actuation Nasal 2.0 {spra y} 2017 active Problems Diagnosis Status Date of Diagnosi s Endometrial carcinoma Active Atrial fibrillation Active Meniere's disease Active Nephrolithiasis Active HTN Active Osteopenia (disorder) Active Diabetes mellitus type II Active Pure hypercholesterolemia (disorder) Active 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
--- OUTSIDE RECORDS SUMMARY | 2024-08-09 02:35 | XMS_ITS ---
Author Name Interface, [id number] lity Address [address] [facility] [address] [address] Organization [facility] Address [address] [facility] [address] [address] Care Team Providers Care Drum Stenciler Name Role Phone Grey Martínez Unavailable Unavailable Allergies and Adverse Reactions Medication/Group Name Reaction Severity Date METFORMIN Diarrhea 08/17/2019 Plan Date Type Value 08/31/2019 APPOINTMENT PORT - 66 POWER PORT PLACEMENT - 66 POWER PORT PLACEMENT 08/25/2019 APPOINTMENT PSTOP - 60 PSTOP - TREATMENT PLANNING - PER 08/17/2019 APPOINTMENT PSTOP - 60 1 WEE K POST OP - 60 1 WEEK POST OP 08/18/2019 LABORDER Miscellaneous pa trell Reason for Visit PORT - 66 POWER PORT PLACEMENT - 66 POWER PORT PLACEMENT Encounters Date Name 08/17/2019 Endometrial carcinom a 08/17/2019 Pure hypercholestero lemia (disorder) 08/17/2019 Unilateral mixed con ductive and sensorineural hearing loss with unrestricted hearing on the contralateral side (situation) Diagnostic Results Date Type Test Units Lower Limit Upper Limit Result Flag Comments Status Ordered By Specimen Source Lab Address 11/08 [facility] other lab See attache cadet Medications Date Name Route Dose Frequency Instructions [...] Solution intravenously 320.0 mg once Administer using Jss-LFLC-iffg aining equipment and through an in-line 0.22 [...] Solution intravenously 320.0 mg once Administer using Cmh-JIGT-eyqh aining equipment and through an in-line 0.22 micron filter.Paclit lou is a vascular irritant. 2019 active 11/10 famotidine intravenously 20.0 mg once 2019 active 11/10 Solu-Cortef intravenously 100.0 mg Re-initiate treatment only upon physician approval. 2019 active 10/20 famotidine intravenously 20.0 mg once 2019 active 10/20 paclitaxel 6 MG/ML Injectable Solution intravenously 320.0 mg once Administer using Kue-TXYG-pbkk aining equipment and through an in-line 0.22 [...] Solution intravenously 320.0 mg once Administer using Nkp-YBZZ-rqaa aining equipment and through an in-line 0.22 [...] Solution intravenously 320.0 mg once Administer using Qup-YBHK-pbvr aining equipment and through an in-line 0.22 [...] Solution intravenously 320.0 mg once Administer using Toy-KXYG-qanp aining equipment and through an in-line 0.22 [...] 1.0 [drp] 2018 active 05/14 Fluticasone Nasal [place] 50 mcg/actuation Nasal 2.0 {spra y} 2017 active Problems Diagnosis Status Date of Diagnosi s Endometrial carcinoma Active Atrial fibrillation Active Meniere's disease Active Nephrolithiasis Active HTN Active Osteopenia (disorder) Active Diabetes mellitus type II Active Pure hypercholesterolemia (disorder) Active 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 (situation) Active Vital Signs Date Type Value 08/17/2019 Body Temperature 98.20 08/17/2019 Heart Beat 61.00 08/17/2019 BSA 1.80 08/17/2019 BMI 27.38 08/17/2019 Height 64.50 08/17/2019 Weight 162.00 08/17/2019 Pain Scale 0.00 08/17/2019 Intravascular Systolic 128 08/17/2019 Intravascular Diastolic 82 08/17/2019 Oxygen Saturation 97.00 08/17/2019 Respiratory Rate 16.00 08/25/2019 Body Temperature 98.30 08/25/2019 BMI 27.11 08/25/2019 Height 64.50 08/25/2019 Weight 160.40 08/25/2019 BSA 1.79 08/25/2019 Intravascular Systolic 138 08/25/2019 Intravascular Diastolic 66 08/25/2019 Oxygen Saturation 96.00 08/25/2019 Respiratory Rate 14.00 08/25/2019 Heart Beat 58.00 08/25/2019 Pain Scale 0.00
--- OUTSIDE RECORDS SUMMARY | 2024-08-09 02:35 | XMS_ITS | Clinical Summary ---
Author Organization [facility] Address [address] [facility] [place] [address] Care Team Providers Care Wool Grader Name Role Phone BernyAlanna MD Primary Care Provider Allergies Active Allergy Reactions Criticality Noted Date Comments Metformin 07/21/2019 Medications alendronate (FOSAMAX) 70 MG tablet Take 70 mg by mouth every 7 days IN THE MORNING. TAKE ON EMPTY STOMACH WITH FULL GLASS OF WATER. DO NOT LIE DOWN FOR 1 HOUR. Active atorvastatin (LIPITOR) 10 MG tablet Take 10 mg by mouth At Bedtime Active Flaxseed, Linseed, (FLAXSEED OIL) 1000 MG CAPS Take 1,000 mg by mouth daily Active flecainide (TAMBOCOR) 150 MG tablet Take 75 mg by mouth every 12 hours (150MG X 0.5 = 75MG) Active fluticasone (FLONASE) 50 MCG/ACT nasal spray [place] 2 sprays into both nostrils 2 times daily Active furosemide (LASIX) 20 MG tablet Take 20 mg by mouth every morning Active metoprolol tartrate (LOPRESSOR) 25 MG tablet Take 25 mg by mouth daily Active olopatadine (PATANOL) 0.1 % ophthalmic solution Place 1 drop into both eyes daily Active rivaroxaban ANTICOAGULANT (XARELTO) 20 MG TABS tablet Take 0.5 tablets (10 mg) by mouth every 12 hours (take 0.5 X 20 mg = 10 mg dose) 0 Active HYDROcodone-acetam inophen (NORCO) 5-325 MG tabletIndications: Acute post-operative pain Take 1 tablet by mouth every 6 hours as needed for moderate to severe pain 3 tablet 0 Active Active Problems Problem Noted Date Diagnosed Date Endometrial cancer 07/21/2019 Diabetes mellitus type II, controlled 07/21/2019 HTN (hypertension) 07/21/2019 Hypercholesterolemia 07/21/2019 Atrial fibrillation 07/21/2019 Meniere's disease 07/21/2019 Paroxysmal atrial fibrillation Hypercholesteremia Hearing loss Social History Tobacco Use Types Packs/Day Years Used Date Smoking Tobacco: Never Smokeless Tobacco: Never Alcohol Use Standard Drinks/Week Comments Yes 0 (1 standard drink = 0.6 oz pur e alcohol) wine once in awhile per H&P Adolescent Education Answer Date Record ed Getting School Help Needed Not on file 03/02 Comments No Sex and Gender Information Value Date Recorded Sex Assigned at Not on file Legal Sex Female 10:53 AM 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 Gender Identity Not on file Sexual Orientation Not on file Last Filed Vital Signs Vital Sign Reading Time Taken Comments Blood Pressure 158/72 08/31/2019 9:00 AM CDT Pulse 59 08/31/2019 9:00 AM CDT Temperature 36 C (96.8 F) 08/31/2019 8:45 AM CDT Respiratory Rate 21 08/31/2019 9:00 AM CDT Oxygen Saturation 99% 08/31/2019 9:00 AM CDT Inhaled Oxygen Concentration - - Weight 72.5 kg (159 lb 14.4 oz) 08/31/2019 5:59 AM CDT Height 165.1 cm (5' 5) 08/31/2019 5:59 AM CDT Body Mass Index 26.61 08/31/2019 5:59 AM CDT Plan of Treatment Health Maintenance Due Date Last Done Comments ANNUAL REVIEW OF HM ORDERS 1935 BMP 1935 LIPID 1935 FALL RISK ASSESSMENT 02/12/2000 RSV VACCINE (1 - 1-dose 75+ series) 2010 Pneumococcal Vaccine: 50+ Years (2 of 2 - PPSV23) 04/22/2016 04/22/2015 PHQ-2 (once per calendar year) 2024 ADVANCE CARE PLANNING 08/10/2024 08/11/2019 COVID-19 Vaccine ( season) 2024 03/02/2024, 03/26/2023, 03/19/2022, Additional history exists DTAP/TDAP/TD IMMUNIZATION (3 - Td or Tdap) 11/12/2025 11/13/2015, 11/13/2015, 10/29/2008 DEXA 10/08/2037 10/08/2022 ZOSTER IMMUNIZATION Completed 08/27/2019, 06/15/2019, 01/22/2007 INFLUENZA VACCINE Completed 03/02/2024, , 02/26/2022, Additional history exists HPV IMMUNIZATION Aged Out No longer e ligible based on patient's age to complete this topic MENINGITIS IMMUNIZATION Aged Out No l onger eligible based on patient's age to complete this topic Medical Devices Implanted Type Area Transport Tank Technician Device Identifier Shelf Expiration Date Model / Serial / Lot Cath Port Powerport Clearvue Isp 8fr [id number] Implanted:Qty : 1 on 08/31/2019 by Austin Rose MD at [facility] Catheter Left: Subclavian [employer] 11/07/2020 [id number] / / [id number] [place] [id number] [facility] Advance Directives For more information, please contact: [phone] Documents on File Type Date Recorded Patient Training Engineer Expl anation Advance Directives and Living Will 08/11/2019 9:37 AM Health Care Directiv e 06/08/2015 * Full Code (Latest Code Status on File) Date Activated Date Inactivated Comments 08/07/2019 7:56 AM 08/31/2019 5:31 AM Question Answer Comments Code status determined by: Discussion with patie nt/legal decision maker * Full Code Date Activated Date Inactivated Comments 08/06/2019 7:59 PM 08/07/2019 7:56 AM Question Answer Comments Code status determined by: Discussion with patie nt/legal decision maker Healthcare Agents on File Name Relationship Healthcare Agent [facility] p Communication Joselyn Kennedy Spouse Health Care Agent Jagdeep Kennedy Son Co-First Altern ate Health Care Agent Jenna Kennedy Daughter Co-First Alter dhruv Health Care Agent Oma Kennedy Daughter Co-First Alterna te Health Care Agent Care Teams Wool Grader Relationship Specialty Start Date End Date Alanna Arrieta MD PCP - General Family Practice 07/22/19
--- OUTSIDE RECORDS SUMMARY | 2024-08-09 02:36 | XMS_ITS ---
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 Past Treatment and Therapy Plans No past plan information found. Past Radiation Episodes * IMRT: Right LungOverview* First Treatment Date Last Treatment Date Treatment Site Technique Goal Episode Provider 10/10/2022 10/19/2022 Right Lung IMRT Curative Rettera Noemi pope A, R.N. * Linked Problems Secondary Malignant Neoplasm Lung Right Treatment Courses* Course [id number] 10/10/2022 - 10/19/2022 Treatment Period Fraction Dose Fractions Total Dose Plans Planned [id number] 10/10/2022 - 10/19/2022 1,000 cGy 5 / 5 5,000 cGy Reference Points Delivered [id number] 10/10/2022 - 10/19/2022 5,000 cGy * IMRT: UterusOverview* First Treatment Date Last Treatment Date Treatment Site Technique Goal Episode Provider 02/10/2020 03/16/2020 Uterus IMRT Curative Zuleyma, Shana Pavon, P.A.-C., M.S. * Linked Problems Malignant Neoplasm Of Uterus Endometrial Treatment Courses* Course 1x Pelvis, PA 02/10/2020 - 03/16/2020 Treatment Period Fraction Dose Fractions Total Dose Plans Planned F1 pelvis 02/10/2020 - 03/16/2020 210 cGy 25 / 25 5 ,250 cGy Reference Points Delivered [id number] 02/10/2020 - 03/16/2020 5,250 cGy
--- OUTSIDE RECORDS SUMMARY | 2024-08-09 02:36 | XMS_ITS | Clinical Summary ---
Author Organization [facility] Address [address] [place] [address] Care Team Providers Care Log Chain Feeder Name Role Phone Elsewhere, Pcp Primary Care Provider Unavailabl e Source Comments Patient records contain information from all sites at [facility]. For routine questions regarding patient records, call [phone] during business hours, M-F 8:00 AM - 5:00 PM Central Time. Record requests for emergency care only can be directed to [phone] at any time.[facility] Allergies Active Allergy Reactions Criticality Noted Date Comments Metformin Diarrhea High 04/14/2018 Medications atorvastatin (LIPITOR) 10 mg tablet Take 10 mg by mouth daily. 0 Active fluticasone propionate (FLONASE) 50 mcg/actuation nasal spray Administer into nostril(s) as needed. 0 Active furosemide (LASIX) 20 mg tablet Take 20 mg by mouth daily. 0 Active metoprolol tartrate (LOPRESSOR) 25 mg tablet Take 25 mg by mouth daily. 0 Active rivaroxaban (Xarelto) 20 mg tablet Take 20 mg by mouth. 9 Active alendronate (FOSAMAX) 70 mg tablet Take 70 mg by mouth once a week. 0 Active glipiZIDE (GLUCOTROL) 5 mg tablet Take 5 mg by mouth daily. 0 Active oxybutynin (DITROPAN) 5 mg tablet 5 mg 2 (two) times a day. 0 Active sennosides-docu sate sodium (SENOKOT-S) 8.6-50 mg per tablet Take 1 tablet by mouth at bedtime as needed for constipation. Active potassium chloride (K-TAB) 20 mEq CR tablet Take 40 mEq by mouth daily. Must dilute with at least 120 mL of cold water or liquid prior to administration. Active apixaban (ELIQUIS) 2.5 mg tablet Take 2.5 mg by mouth 2 (two) times a day. Active omeprazole (PriLOSEC) [address] capsule Take 20 mg by mouth 2 (two) times a day. Active flecainide acetate (FLECAINIDE ORAL) Take 75 mg by mouth every 12 (twelve) hours. 9 Active gabapentin (NEURONTIN) 300 mg capsule Take 1 capsule by mouth at bedtime. 4 Active multivitamin tablet Take 1 tablet by mouth daily. 1 Active olopatadine (PATANOL) 0.1 % ophthalmic solution Administer 1 drop into both eyes daily. 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 23 Malignant Neoplasm Of Uterus Endometrial 020 Cancer Staging:Clinical: Unsigned Pathologic stage from 02/03/2020:FIGO Stage IIIC1(pT1, pN1mi, cM0) - Unsigned Family History Medical History Relation Name Comments Pancreatic cancer Brother Breast cancer Cousin Colon cancer Sister 1 Skin cancer Sister 2 Relation Name Status Comments Brother Cousin Sister 1 Sister 2 Social History Tobacco Use Types Packs/Day Years Used Date Smoking Tobacco: Never Smokeless Tobacco: Never Tobacco Cessation:Counseling Given: Not Answered Alcohol Use Standard Drinks/Week Comments Not Currently 0 (1 standard drink = 0.6 oz pur e alcohol) Nutrition Answer Date Recorded Nutrition: EVOO Fat Source 13 02/22 Nutrition: Servings of Fruits/Vegetables per Day Not on file 02/23/2020 Dental Answer Date Recorded Dental: Regular Dentist Unknown 08/19/19 21 Comments Unknown Sex and Gender Information Value Date Recorded Sex Assigned at Not on file Legal Sex Female 8:43 AM CDT Gender Identity Not on file Sexual Orientation Not on file Last Filed Vital Signs Vital Sign Reading Time Taken Comments Blood Pressure 112/63 07/25/2023 11:28 AM PINSETTER MECHANIC HELPER Pulse 79 07/25/2023 11:28 AM PINSETTER MECHANIC HELPER Temperature 36.4 C (97.5 F) 07/25/2023 11:28 AM PINSETTER MECHANIC HELPER Respiratory Rate - - Oxygen Saturation - - Inhaled Oxygen Concentration - - Weight 55.2 kg (121 lb 11.1 oz) 024 11:28 AM PINSETTER MECHANIC HELPER Height 165.1 cm (5' 5) 02/03/2020 9:19 AM CDT Body Mass Index 20.25 02/03/2020 9:19 AM CDT Plan of Treatment Health Maintenance Due Date Last Done Comments Hepatitis B Screening 1935 Pneumococcal vaccine (50+ years) (2 of 2 - PPSV23) 06/17/2015 04/22/2015 Depression Screening (Annual PHQ-2) 06/10/2024 Fall Risk Screen (Annual) 06/10/2024 COVID-19 Vaccine (8 - Pfizer risk season) 2024 03/02/2024, 03/26/2023, 03/19/2022, Additional history exists DTaP,Tdap,and Td Vaccines (3 - Td or Tdap) 11/12/2025 11/13/2015, 11/13/2015, 10/29/2008 Zoster Vaccines Completed 08/27/2019, 11/2019, 01/22/2007 RSV vaccine - (32-36 weeks) or 60+ years Completed 03/26/2023 Influenza Vaccine Completed 03/02/2024, , 02/26/2022, Additional history exists HPV Vaccines Aged Out No longer eligi ble based on patient's age to complete this topic IPV Vaccines Aged Out No longer eligi ble based on patient's age to complete this topic Medical Devices Implanted Type Area Broadband Engineer Device Identifier Shelf Expiration Date Model / Serial / Lot Pacemaker- [id number] Implanted:06/18 (Quantity not on file) Pacemaker Chest Procedures Procedure Name Priority Date/Time Associated Diagnosis Comments OUTSIDE NM PET Routine 05/14/2024 3:20 PM PINSETTER MECHANIC HELPER from Last 3 Months Results * PET skull to mid thigh-Outside NM Pet (05/14/2024 3:20 PM PINSETTER MECHANIC HELPER) Narrative IIMS - 05/14/2024 8:37 PM PINSETTER MECHANIC HELPER This order has been created and auto-finalized to support the import of outside images. If available, original interpretation can be found on the Media Tab in Chart Review, in Document Viewer, as an image in QREADS or as an Addendum. If a re-interpretation or overread is required please follow defined workflow. us Provider Not In System IMG NM PROCEDURES Final R esult IIMS NA from Last 3 Months Insurance MEDICARE [facility] Care Teams Log Chain Feeder Relationship Specialty Start Date End Date Elsewhere, Pcp PCP - General Internal Medicine 07/23/23
--- NOTE | 2024-08-09 02:57 | ED_ITS ---
HPI - General Adult General Chief complaint: Nausea/Vomiting Stated complaint: Flu Time Seen by Provider: 08/09/24 02:44 Source: patient, family and EMS Mode of arrival: EMS Limitations: no limitations History of Present Illness HPI narrative: Frail 89-year-old female presents to the emergency department with spouse and adult child via EMS. Patient had onset of vomiting and diarrhea about an hour prior to presentation. Family concerned because she is ?so frail? that they did not know it to do. They did not try any anti diarrheal medications or anti nausea treatments prior to calling 911. No loss of consciousness, no bloody vomit, no bloody stools. Had been eating and drinking well through the day. No pain, no fever. EMS reports that she walked just fine onto the cot. No fall, injury or trauma. No sick contacts. Family reporting that she had lung cancer a few years ago, is no longer on chemotherapy or any type of treatment for this. She does have a history of AFib but is not having any neurological changes, chest pain or breathing difficulty. There been no recent changes in her medications. Per patient, ROS is only notable for the GI symptoms, otherwise denies times 12 systems. Related Data Home Medications ?Medication ?Instructions ?Recorded ?Confirmed apixaban 2.5 mg tablet (Eliquis) 2.5 mg PO BID 12/18/21 05/20/24 atorvastatin 10 mg tablet 10 mg PO HS 12/18/21 05/20/24 flecainide 150 mg tablet 75 mg PO BID 12/18/21 05/20/24 multivitamin 1 tab PO DAILY 12/18/21 05/20/24 omeprazole 20 mg capsule,delayed 20 mg PO BID 12/18/21 05/20/24 release oxybutynin chloride 5 mg tablet 5 mg PO BID 12/18/21 05/20/24 potassium chloride 20 mEq 40 meq PO DAILY 12/18/21 05/20/24 tablet,extended release(part/cryst) furosemide 20 mg tablet 20 mg PO QAM 01/16/23 05/20/24 alendronate 70 mg tablet 70 mg PO Q7D 03/11/23 05/20/24 gabapentin 300 mg capsule 300 mg PO HS 09/23/23 05/20/24 metoprolol succinate 25 mg 25 mg PO DAILY 09/23/23 05/20/24 tablet,extended release 24 hr olopatadine 0.1 % eye drops 1 drp ophthalmic (eye) BID 09/23/23 05/20/24 Allergies Allergy/AdvReac Type Severity Reaction Status Date / Time metformin Allergy Verified 08/09/24 02:40 [facility] Medical History Diabetes type 2, controlled ?E11.9 - Type 2 diabetes mellitus without complications (ICD-10) Anemia due to acute blood loss ?D62 - Acute posthemorrhagic anemia (ICD-10) Upper gastrointestinal hemorrhage ?K92.2 - Gastrointestinal hemorrhage, unspecified (ICD-10) Malignant neoplasm of endometrium (2020) ?C54.1 - Malignant neoplasm of endometrium (ICD-10) Atrial fibrillation ?I48.91 - Unspecified atrial fibrillation (ICD-10) 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 - Drug-induced polyneuropathy (ICD-10) ?T45.1X5A - Adverse effect of antineoplastic and immunosuppressive drugs, initial encounter (ICD-10) Lung nodule ?R91.1 - Solitary pulmonary nodule (ICD-10) Surgical History S/P placement of cardiac pacemaker ?Z95.0 - Presence of cardiac pacemaker (ICD-10) H/O total hysterectomy with bilateral salpingo-oophorectomy (BSO) ?Z90.710 - Acquired absence of both cervix and uterus (ICD-10) ?Z90.722 - Acquired absence of ovaries, bilateral (ICD-10) ?Z90.79 - Acquired absence of other genital organ(s) (ICD-10) Social History Narrative: Lives with Joselyn (would share MDM duties with son Jagdeep if needed) in [place] independently. 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 DNR/DNI status. What is your current living situation?: I presently have a place to live Problems where you live: no known problems Problems where you live details: None In the past 12 months, utilities in danger of being shut off: no In past 12 months, lack of transportation kept you from medical appts, meetings, work, or getting things needed for daily living: no In the past 12 mos, have been you worried that your food would run out before you had money to buy more?: never true In the past 12 mos, the food you bought just didn't last and you didn't have money to buy more?: never true Smoking Status: Never smoker Do you use any of these nicotine containing products: None Second hand tobacco smoke exposure: No How often do you have a drink containing alcohol: never How often do you have six or more drinks on one occasion: Never AUDIT-C Alcohol total score: 0 Non-prescribed substance use: denies use How often does anyone, including family, friends and others, physically hurt you : never How often does anyone, including family, friends and others, insult or talk down to you: never How often does anyone, including family, friends and others, threaten you with harm: never How often does anyone, including family, friends and others, scream or curse at you: never service: No Exam Const: Vital Signs, click to edit/add: Vital Signs - 24 hr 08/09/24 02:35 Temperature 99 F Pulse Rate [Right Pulse Oximeter] 77 Respiratory Rate 18 Blood Pressure [Ri ght Upper Arm] 153/81 H Pulse Oximetry 97 Oxygen Delivery Me thod Room Air Documenting provider has reviewed patient's vital signs: yes Common nor mals: no apparent distress and alert General appearance: frail appearing Other: Calm but can answer questions. Mildly hard of hearing but does seem to have appropriate insight. HENMT: Common normals: moist oral mucous membranes and oropharynx normal Eye: Common normals: conjunctivae normal General eye: normal appearance of both eyes Conjunctiva: conjunctiva(e) normal Neck & C-Spine: Common normals: full ROM and no lymphadenopathy Chest: Other: Pacemaker right chest, port left chest Resp: Common normals: normal respiratory effort, no use of accessory muscles and clear to auscultation bilaterally Effort & inspection: able to speak in complete sentences Auscultation: clear to auscultation bilaterally Cardio: Common normals: regular rate, regular rhythm, S1 normal heart sound, S2 normal heart sound and no murmurs Rate: regular rate Rhythm: regular rhythm Heart sounds: S1 normal and S2 normal GI: Common normals: Normal to inspection, nondistended, normoactive bowel sounds present, soft to palpation, non-tender, no hepatosplenomegaly and no masses Palpation: soft and no hepatosplenomegaly Back & Pelvis: Common normals: thoracic and lumbar spine normal to inspection Extremity: Common normals: normal to inspection, normal capillary refill and no clubbing, cyanosis or edema Neuro: Common normals: moves all extremities Sensorium/orientation: alert Speech: speech normal Psych: Attitude: engaged Activity/motor behavior: appropriate eye contact Skin: Common normals: no rashes or lesions noted General skin exam: no rashes or lesions noted Course Course ED Course: 89-year-old female with recent onset nausea vomiting and diarrhea. Vital stable, afebrile, initial exam is quite benign and reassuring. Patient has been taking oral nutrition throughout the day well. I would like to give oral Zofran, loperamide and Tylenol and then perform an oral challenge. She tolerates this well and can ambulate safety, she will be discharged with a supply of Zofran. If unsuccessful, consider further workup and/or treatment. We do not have any hospital beds available at this time. Reevaluation(s) Time of Reevaluation #1: 03:23 Reevaluation #1: Patient tolerating oral liquids without difficulty. Will discharge home with family. Alarm symptoms reviewed to warrant ED presentation. Push fluids. Prescription for Zofran provided. Written instructions for [id number] Imodium if needed. Hold furosemide for 1 day, resume tomorrow. Okay to use Tylenol as needed for abdominal discomfort. Vital Signs Vital signs: Initial Vital Signs Temperature 99 F 08/09/24 02:35 Temperature Source Temporal Artery Scan 08/09/24 02:35 Pulse Rate 77 08/09/24 02:35 Pulse Rhythm Regular 08/09/24 02:35 Pulse Strength 3+ Normal 08/09/24 02:35 Respiratory Rate 18 08/09/24 02:35 Blood Pressure 153/81 H 08/09/24 02:35 Blood Pressure Mean 105 08/09/24 02:35 Blood Pressure Position Semi-Fowlers 08/09/24 02:35 Pulse Oximetry 97 08/09/24 02:35 Oxygen Delivery Method Room Air 08/09/24 02:35 Vital Signs Temperature 99 F 08/09/24 02:35 Pulse Rate 77 08/09/24 02:35 Respiratory Rate 18 08/09/24 02:35 Blood Pressure 153/81 H 08/09/24 02:35 Pulse Oximetry 97 08/09/24 02:35 Oxygen Delivery Method Room Air 08/09/24 02:35 Temperature 99 F 08/09/24 02:35 Pulse Rate 77 08/09/24 02:35 Respiratory Rate 18 08/09/24 02:35 Blood Pressure 153/81 H 08/09/24 02:35 Pulse Oximetry 97 08/09/24 02:35 Oxygen Delivery Method Room Air 08/09/24 02:35 Medications Administered Medications: Generic Name Dose Route Start Last Admin Trade Name Elmer PRN Reason Stop Dose Admin Acetaminophen 650 mg 08/09/24 02:51 08/09/24 03:17 Acetaminophen 325 Mg Tablet PO 08/09/24 02:52 650 mg ONCE ONE Administration Loperamide HCl 4 mg 08/09/24 02:51 08/09/24 03:17 Loperamide Hcl 2 Mg Capsule PO 08/09/24 02:52 4 mg ONCE ONE Administration Ondansetron HCl 8 mg 08/09/24 02:51 08/09/24 03:03 Ondansetron Odt 4 Mg Tab PO 08/09/24 02:52 8 mg ONCE ONE Administration Medical Decision Making Lab Data Labs: Lab Results 08/09/24 Range/Units 02:41 SARS-CoV-2 (PCR) Negative SARS-CoV-2 (Negative) Influenza Type A (PCR) Negative PCR FLU A (Negative) Influenza Type B (PCR) Negative PCR FLU B (Negative) RSV (PCR) Negative PCR RSV (Negative) Discharge Plan Discharge Clinical Impression: Gastroenteritis Patient Disposition: Home w/ Parent or Adult Condition: Improved Instructions: Gastroenteritis (DC) Additional Instructions: Unfortunately, we are seeing a lot of this GI illness going around right now. Symptoms do show on exam and history that this is most likely caused by a virus. This is highly contagious. For most people, it will cause weakness, mild abdominal pain, nausea and diarrhea for 2-4 days. For many, treatment with simple anti nausea medicine can help prevent dehydration. In the emergency department, she was given a dose of this anti nausea medicine, Zofran. I will send you with a prescription for some as well. Give another dose at 10:00 a.m. please. After the 10:00 a.m. dose, you may then switched the Zofran to as needed. Diarrhea is common with this illness as well. She was given an initial dose of Imodium, also known as loperamide. Do not automatically give Imodium unless she has loose stools again. If needed, you can continue giving the loperamide 1 tablet every 2 hours. Continue pushing fluids, hold the morning dose of furosemide for Saturday only, restarting Saturday. Should come to emergency department if you have persistent vomiting for more t mccullough 16 hours, severe weakness to the point where you cannot walk from bed to bathroom, acute neurological status changes or other severe alarming symptoms. We do not have any hospital beds available at this time for observation admission and there really is no criteria to come into the hospital at this time based on vital signs. Please re-evaluate in the emergency department if things worsen. Swabs were negative for COVID, influenza and RSV today, as we would have expected. Activity Level: Activity as Tolerated Discharge Diet: Regular Prescriptions: No Action furosemide 20 mg tablet 20 mg PO QAM Eliquis 2.5 mg tablet 2.5 mg PO BID atorvastatin 10 mg tablet 10 mg PO HS flecainide 150 mg tablet 75 mg PO BID multivitamin Tablet 1 tab PO DAILY omeprazole 20 mg capsule,delayed release(DR/EC) 20 mg PO BID oxybutynin chloride 5 mg tablet 5 mg PO BID potassium chloride 20 mEq tablet,ER particles/crystals 40 meq PO DAILY alendronate 70 mg tablet 70 mg PO Q7D Rx Instructions: THURS gabapentin 300 mg capsule 300 mg PO HS metoprolol succinate 25 mg tablet extended release 24 hr 25 mg PO DAILY olopatadine 0.1 % drops 1 drp ophthalmic (eye) BID Follow Up/Referrals: Alanna Arrieta MD [Primary Care Provider] - Stand Alone Forms: Flashtalking Info Instructions
[2024-08-09] MEDS: ONDANSETRON ODT 4 MG TAB 8 MG PO (03:03)
[2024-08-09] MEDS: ACETAMINOPHEN 325 MG TABLET 650 MG PO (03:17)
[2024-08-09] MEDS: LOPERAMIDE HCL 2 MG CAPSULE 4 MG PO (03:17)
[2024-08-09 03:19] LABS: PCR FLU A Negative PCR FLU A (Negative); PCR FLU B Negative PCR FLU B (Negative); PCR RSV Negative PCR RSV (Negative); SARS PCR* Negative SARS-CoV-2 (Negative)
== END 2024-08-09 03:59 | disposition home or self-care (01) ==
PROVIDERS: Emergency Provider Family Medicine; PCP Family Medicine
DX: K52.9 Noninfective gastroenteritis and colitis, unspecified (principal)
CPT/HCPCS: 87631; 99283; 99284; A9270

== ENCOUNTER 2024-09-17 12:58 | Outpatient (CLI) | payer MEDICARE, SELFPAY ==
--- NOTE | 2024-09-17 13:30 | CRLHL7_ITS ---
For Patients: As a result of the Century Cures Act, medical imaging exams and procedure reports are released immediately into your electronic medical record. You may view this report before your referring provider. If you have questions, please contact your health care provider. CLINICAL HISTORY: Endometrial cancer. TECHNIQUE: Following IV injection of 36-ribjod-1-deoxyglucose (FDG) and a standard uptake period of approximately 60 minutes, a non-contrast CT scan followed by a PET scan were acquired along the length of the body from the mid portion of the head to the mid thighs. The non-contrast CT was used for anatomic localization and photon attenuation correction of the PET scan. Blood Glucose Level (mg/dL): 139 FDG Dose (mCi): 12.7 COMPARISON: PET-CT scans dated 14 May 2024 and 23 January 2024. FINDINGS: Head/Neck: No abnormal activity identified in the head and neck. Chest: Right-sided pacemaker. Left-sided Port-A-Cath. No mediastinal or hilar adenopathy. No axillary adenopathy. The lungs show irregular atelectasis versus scarring in the lateral aspect of the right lower lobe which is unchanged. A few tiny pulmonary nodules are unchanged. No pneumothorax. Abdomen/Pelvis: No focal abnormalities identified in the visualized portions of the liver, spleen, pancreas, adrenal glands, and kidneys. No hydronephrosis. The GI tract is incompletely distended but shows no gross abnormalities. No retroperitoneal, pelvic sidewall, or mesenteric adenopathy. Atherosclerotic vascular calcifications. Hysterectomy. Bones: Degenerative changes of the spine. No abnormal skeletal activity identified. IMPRESSION: 1. No abnormal activity identified. 2. Irregular atelectasis versus scarring in the right lower lobe is unchanged. Dictated by Jeffrey Smith MD @ 09/18/2024 2:52:22 PM (Electronically Signed)
== END 2024-09-17 12:59 | disposition home or self-care (01) ==
LOC: RAD 13:00
PROVIDERS: PCP Family Medicine; Visit Provider Internal Medicine Hematology & Oncology
DX: C54.1 Malignant neoplasm of endometrium (principal)
CPT/HCPCS: 78815; A9552

== ENCOUNTER 2024-09-23 14:30 | Outpatient (RCR) | payer MEDICARE, SELFPAY ==
[2024-03-31] MEDS: SODIUM CHLORIDE 0.9 % (FLUSH) 10 ML SYRINGE IVF (14:23)
[2024-03-31] MEDS: HEPARIN 500 UNIT/5 ML SYRINGE IVF (14:23)
[2024-05-20] MEDS: SODIUM CHLORIDE 0.9 % (FLUSH) 10 ML SYRINGE IVF (12:39)
[2024-05-20] MEDS: HEPARIN 500 UNIT/5 ML SYRINGE IVF (12:40)
[2024-05-20 12:46] LABS: Basophils Percent Auto 0.6 % (0.0-3.0); Eosinophils Percent Auto 1.5 % (0.0-7.0); Hematocrit 39.3 % (33.0-51.0); Hemoglobin* 12.9 gm/dL (12.0-16.0); Immature Granulocytes Pct Auto 0.3 %; Lymphocytes Percent Auto 26.2 % (20-44); Mean Corpuscular HGB Conc 33 gm/dL (32-36); Mean Corpuscular Hemoglobin 31 pg (26-34); Mean Corpuscular Volume 94 fL (80-100); Monocytes Percent Auto 9.3 % (0.0-11.0); Neutrophils Percent Auto 62.1 % (42.0-72.0); Platelet Count* 120 K/uL (140-440); RDW Coefficient of Variation % 13.1 % (11.5-15.5); White Blood Count* 3.24 K/uL (4.50-11.00)
[2024-05-20 12:55] LABS: Slide Review Reflex No
[2024-05-20 12:56] LABS: Chloride* 107 mmol/L (96-114); Potassium* 4.4 mmol/L (3.6-5.1)
[2024-05-20 12:59] LABS: Alanine Aminotransferase* 20 U/L (4-35); Alkaline Phosphatase* 42 U/L (40-150); Aspartate Amino Transferase* 31 U/L (12-35); Bilirubin Total* 0.6 mg/dL (0.1-1.5); Calcium* 9.6 mg/dL (8.4-10.6); Carbon Dioxide* 27 mmol/L (20-32); Creatinine* 0.7 mg/dL (0.5-1.5); Est. Creatinine Clearance* 31.55; Estimated Glomerular Filt Rate 83 ml/min; Glucose* 128 mg/dL (60-115); Total Protein* 6.4 g/dL (6.0-8.3)
[2024-05-20 13:14] LABS: Anion Gap 7 mEq/L (7-15); Blood Urea Nitrogen* 26 mg/dL (7-30); Sodium* 141 mmol/L (135-149)
[2024-07-01] MEDS: SODIUM CHLORIDE 0.9 % (FLUSH) 10 ML SYRINGE IVF (12:58)
[2024-07-01] MEDS: HEPARIN 500 UNIT/5 ML SYRINGE IVF (12:58)
[2024-08-11] MEDS: HEPARIN 500 UNIT/5 ML SYRINGE IVF (14:00)
[2024-08-11] MEDS: SODIUM CHLORIDE 0.9 % (FLUSH) 10 ML SYRINGE IVF (14:00)
[2024-09-17] MEDS: HEPARIN 500 UNIT/5 ML SYRINGE IVF (13:10)
[2024-09-17] MEDS: SODIUM CHLORIDE 0.9 % (FLUSH) 10 ML SYRINGE IVF (13:10)
== END 2024-09-27 23:59 | disposition home or self-care (01) ==
LOC: CCIC 14:30
PROVIDERS: PCP Family Medicine; Referring Provider Family Medicine; Visit Provider Internal Medicine Hematology & Oncology
DX: C54.1 Malignant neoplasm of endometrium (principal); G62.0 Drug-induced polyneuropathy; T45.1X5A Adverse effect of antineoplastic and immunosuppressive drugs, initial encounter; I48.91 Unspecified atrial fibrillation; Z79.01 Long term (current) use of anticoagulants; Z95.0 Presence of cardiac pacemaker
CPT/HCPCS: 36415; 36591; 78815; 80053; 85025; 99211; 99214; G0463; A9552; J1642